=== PATIENT | female | born 1940 | race Caucasian/White ===

== ENCOUNTER → 2017-12-08 12:31 | Outpatient (CLI) | payer MEDICARE, SELFPAY ==
[2017-12-08 13:06] LABS: Hematocrit 38.6 % (36-46); Hemoglobin 12.7 g/dL (12.0-16.0); Mean Corpuscular Hemoglobin 27.5 PG (26-34); Mean Corpuscular Volume 83.4 fL (80-100); Platelet Count 221 X10^3/uL (150-400); Red Blood Cell Count 4.62 X10^6/uL (4.0-5.2); Red Cell Distribution Width 17.4 % (11.6-14.8)
[2017-12-08 13:29] LABS: BUN Creatinine Ratio 19.2 (6-22); Blood Urea Nitrogen 50 mg/dL (7-17); Calcium 9.5 mg/dL (8.4-10.2); Carbon Dioxide 26 mmol/L (22-32); Chloride 99 mmol/L (98-107); Estimated Glomerular Filt Rate 17.9 mL/min (>60); Glucose 105 mg/dL (80-110); HEMOLYSIS < 15 (0-50); Phosphorous 4.6 mg/dL (2.8-4.1); Potassium 4.4 mmol/L (3.4-5.1); Sodium 138 mmol/L (137-145)
[2017-12-10 13:58] LABS: Parathyroid Hormone Int 213 pg/mL (14-64)
== END ==
PROVIDERS: PCP Internal Medicine; Visit Provider Internal Medicine Nephrology
DX: N05.9 Unspecified nephritic syndrome with unspecified morphologic changes (principal); D70.9 Neutropenia, unspecified; E83.30 Disorder of phosphorus metabolism, unspecified; N25.81 Secondary hyperparathyroidism of renal origin
CPT/HCPCS: 36415; 80048; 83970; 84100; 85027

== ENCOUNTER 2018-01-27 17:11 | Emergency (ER) | payer MEDICARE, SELFPAY ==
[2018-01-27] VITALS (8 sets, daily range): BP systolic 118–155; BP diastolic 63–81; PULSE 63–121; RESP 15–18; O2SAT 94–98; BMI 23.9
--- NOTE | 2018-01-27 18:16 | ED.SYNCOPE ---
HPI - Syncope General Chief Complaint: Syncope Stated Complaint: Syncope Time Seen by Provider: 01/27/18 18:13 Source: patient, EMS and RN notes reviewed Limitations: no limitations History of Present Illness HPI narrative: Patient is a 77-year-old female who presents after syncopal episode. She had been standing outside the [facility] very the for a hatchet down there working on getting the other boat up and running. Once on the other boat her felt her collapse. Patient says there were signs of that she was falling. She did not lose consciousness. She does have a history of AFib noted to be in AFib. She currently does not feel it she denies chest pain or heart palpitations. She does take Xarelto, which apparently is going to be switched to Coumadin. But has not yet. She states that she has been drinking all water and does on a regular basis. Does not feel like she was dehydrated. MD complaint: collapsed Related Data Home Medications Medication Instructions Recorded Confirmed aspirin 81 mg tablet,delayed 81 mg PO QPM 12/01/17 01/27/18 release atorvastatin 40 mg tablet 40 mg PO QPM 12/01/17 01/27/18 multivitamin capsule 1 cap PO DAILY 12/01/17 01/27/18 Coumadin 1 dose PO DIRECTED 01/27/18 01/27/18 alendronate 70 mg PO MO 01/27/18 01/27/18 amlodipine 5 mg PO DAILY 01/27/18 01/27/18 calcitriol 1 cap PO MOWEFR 01/27/18 01/27/18 clonidine HCl 1 tab PO PRN PRN 01/27/18 01/27/18 gabapentin 600 mg PO BEDTIME 01/27/18 01/27/18 levothyroxine 1 tab PO DAILY 01/27/18 01/27/18 metoprolol tartrate 25 mg PO BID 01/27/18 01/27/18 Allergies Allergy/AdvReac Type Severity Reaction Status Date / Time No Known Allergies Allergy Uncoded 12/07/17 10:47 Review of Systems Review of Systems All systems reviewed & are unremarkable except as noted in HPI and below Constitutional Denies chills, Denies fever(s), Denies frequent falls, Denies headache(s), Denies lethargy and Denies weakness ENT Ears, Nose, Mouth, and Throat: Denies change in voice, Denies headache(s), Denies neck pain and Denies sore throat Cardiovascular Reports as per HPI, Reports syncope, Denies dyspnea and Denies dyspnea on exertion Respiratory Denies cough, Denies dyspnea, Denies dyspnea on exertion and Denies wheezing Gastrointestinal Gastrointestinal: Denies abdominal pain, Denies change in bowel habits, Denies diarrhea, Denies nausea and Denies vomiting Musculoskeletal Reports system reviewed and no additional complaints, except as docu, Denies neck pain and Denies tingling Integumentary/Breasts Denies pruritus, Denies erythema, Denies rash and Denies wounds Neurologic Reports syncope, Denies frequent falls, Denies headache(s), Denies lack of coordination, Denies sensory deficit, Denies tingling, Denies paresthesias and Denies weakness Allergic/Immunologic Denies wheezing [facility] Medical History FH: total abdominal hysterectomy and bilateral salpingo-oophorectomy (Acute) Atrial fibrillation (Chronic) Bladder cancer (Resolved) Surgical History H/O total cystectomy (Acute) History of bladder surgery (Resolved ~03/2014) Social History Smoking Status: Former smoker Exam Initial Vital Signs Initial Vital Signs: Vital Signs Pulse Rate 121 H 01/27/18 17:14 Respiratory Rate 18 01/27/18 17:14 Blood Pressure 120/78 01/27/18 17:14 Pulse Oximetry 94 01/27/18 17:14 GENERAL: Well-appearing, well-nourished and in no acute distress. HEENT: Head atraumatic,EOMI, pupils reactive, CARDIOVASCULAR: Regular rate and rhythm without murmurs, rubs or gallops. RESPIRATORY: Breath sounds equal bilaterally, no wheezes rales or rhonchi. ABDOMEN: Soft, nontender. Normoactive bowel sounds all 4 quadrants. No guarding or rebound. EXTREMITIES: Normal range of motion, no clubbing or edema. Neurovascularly intact NEUROLOGICAL: Alert and oriented x4.Normal gait and speech. Cranial nerves II through XII grossly intact. Good [id number], good gtsm-ph-[id number], strength equal bilaterally, no dysarthria or aphasia, sensation in tact to soft touch bilaterally, no visual changes, no facial droop SKIN: Warm, dry, no laceration, no petechiae, no rashes or lesions. Course Orders Ordered: ED Orders 01/27/18 17:00 Complete Blood Count AUTO DIFF Stat Comprehensive Metabolic Panel Stat Troponin & CK Cardiac Panel Stat 01/27/18 17:18 EKG-12 Lead Routine 01/27/18 18:24 CT head/brain wo con Stat Discontinued Medications Diltiazem HCl (Cardizem) 10 mg IV NOW ONE Stop: 01/27/18 19:24 Last Admin: 01/27/18 19:45 Dose: Sodium Chloride (Normal Saline 0.9%) 1,000 mls @ 1,000 mls/hr IV BOLUS ONE Stop: 01/27/18 19:22 Last Infusion: 01/27/18 20:36 Dose: 0 mls/hr Admin: 01/27/18 18:50 Dose: 1,000 mls/hr Rivaroxaban (Xarelto) 15 mg PO NOW ONE Stop: 01/27/18 20:21 Last Admin: 01/27/18 20:39 Dose: 15 mg Vital Signs - 8 hr 01/27/18 17:14 01/27/18 17:32 01/27/18 18:01 Pulse Rate 121 H 106 H 116 H Respiratory Rate 18 15 16 Blood Pressure 120/78 Blood Pressure [Left Arm] 118/63 123/78 H Pulse Oximetry 94 95 96 01/27/18 18:32 01/27/18 19:32 01/27/18 19:45 Pulse Rate 104 H 64 69 Respiratory Rate 17 17 Blood Pressure 155/71 H Blood Pressure [Left Arm] 155/71 H Pulse Oximetry 97 98 01/27/18 20:17 01/27/18 21:25 Pulse Rate 63 75 Respiratory Rate 18 16 Blood Pressure 146/68 H Blood Pressure [Left Arm] 123/81 H Pulse Oximetry 96 96 MDM - Syncope Medical Records Attestation: I reviewed the patient's medical records. Lab Data Attestation: I reviewed the patient's lab results. Result diagrams: 01/27/18 17:00 01/27/18 17:00 Lab Results 01/27/18 01/27/18 Range/Units 17:00 17:00 WBC 9.3 (4.5-11.0) X10^3/uL RBC 4.21 (4.0-5.2) X10^6/uL Hgb 11.9 L (12.0-16.0) g/dL Hct 35.4 L (36-46) % MCV 84.2 (80-100) fL MCH 28.3 (26-34) PG MCHC 33.6 (30-36) % RDW 18.8 H (11.6-14.8) % Plt Count 198 (150-400) X10^3/uL Neut % (Auto) 71.4 (50-75) % Lymph % (Auto) 19.1 L (25-40) % [place] % (Auto) 9.1 (3-14) % Eos % (Auto) 0.0 L (2-4) % Baso % (Auto) 0.4 (0-2) % Neut # (Auto) 6600 H (8654-3143) /uL Sodium 142 (137-145) mmol/L Potassium 3.9 (3.4-5.1) mmol/L Chloride 104 (98-107) mmol/L Carbon Dioxide 21 L (22-32) mmol/L BUN 55 H (7-17) mg/dL Creatinine 2.40 H (0.52-1.04) mg/dL Estimated GFR 19.7 L (>60) mL/min BUN/Creatinine Ratio 22.9 H (6-22) Glucose 142 H (80-110) mg/dL Calcium 9.8 (8.4-10.2) mg/dL Total Bilirubin 0.7 (0.2-1.3) mg/dL AST 25 (14-36) IU/L ALT 25 (9-52) IU/L Alkaline Phosphatase 94 (38-126) U/L Total Creatine Kinase 122 (30-135) U/L CK-MB (CK-2) 4.29 H (<2.37) ng/mL CK-MB (CK-2) Rel Index 3.5 (1.5-5.0) % Troponin I 0.020 (0.01-0.034) ng/mL Total Protein 8.0 (6.3-8.2) g/dL Albumin 4.4 (3.5-5.0) g/dL Globulin 3.6 (1.7-4.1) g/dL Albumin/Globulin Ratio 1.2 (1.0-2.8) Imaging Data CT scan - head: Radiologist's impression: PROCEDURE: CT HEAD/BRAIN WO CON INDICATIONS: syncope on xeralto TECHNIQUE: Noncontrast 4.5 mm thick angled axial sections acquired from the foramen magnum to the vertex, with coronal and sagittal reformats. For radiation dose reduction, the following was used: automated exposure control, adjustment of mA and/or kV according to patient size. COMPARISON: Outside Facility, RG, CT HEAD W/O CONTRAST, 08/02/2014, 12:46. FINDINGS: Image quality: Excellent. CSF spaces: Basal cisterns are patent. No extra-axial fluid collections. The ventricles are symmetric in size and shape. Brain: No intracranial bleeds or masses. There is mild cerebral volume loss for age, with resultant ventricular and sulcal prominence. There are severe periventricular and deep white matter chronic small vessel ischemic changes. 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 There is intracranial internal carotid artery and vertebral artery atherosclerosis. Skull and face: Calvarium and visualized facial bones appear intact, without suspicious lesions. Sinuses: Visualized sinuses and mastoids are clear. IMPRESSION: No acute intracranial disease process. Dictated by: Zoie Daniel MD, PhD on 01/27/2018 at 18:47 ECG Data Attestation: I personally reviewed and interpreted this ECG as follows: Prior ECG tracings: available for review Interpretation: EKG atrial fibrillation rate [address] changes similar to previous EKGs MDM Narrative Medical decision making narrative: Patient's heart rate fluctuates up into the 130s. She did take her own home dose of metoprolol in the ED however just prior to that her heart rate did start to settle down into the 60s -70s. She remains completely asymptomatic. No focal deficits. AFib with RVR may have contributed to her syncope. However she has received IV fluid she is tolerating oral fluids. They are unable to get back to [place]. We will give her neck her nightly dose Xarelto as well. I discussed all findings with the patient and , Education has been performed regarding treatment plan, diagnosis, warning signs and symptoms and all concerns have been addressed. Verbally agree with and understood all of the above. Discharge Plan Departure Patient Disposition: Home, Self-Care Clinical Impression: Atrial fibrillation Discharge Date/Time: 01/27/18 20:35 Interventions: ED Discharge Assessment Last Done: 01/27/18 21:25 Instructions: Atrial Fibrillation Activity Restrictions/Additional Instructions: *You have been diagnosed with atrial fibrillation *What to do: Irregular heart rate may have contributed to passing out along with being outside in the heat. Blood work EKG and head CT are negative. *Continue to take medications as directed *Follow up with your primary care provider in 2-3 days *Return to ER if you should have increasing weakness, headache, heart palpitations, dizziness, lightheadedness or any new, worsening or concerning symptoms Prescriptions: No Action aspirin 81 mg tablet,delayed release (DR/EC) 81 mg PO QPM RF: 0 atorvastatin 40 mg tablet 40 mg PO QPM RF: 0 multivitamin capsule 1 cap PO DAILY RF: 0 alendronate 70 mg tablet 70 mg PO MO RF: 0 amlodipine 5 mg tablet 5 mg PO DAILY RF: 0 levothyroxine 50 mcg tablet 1 tab PO DAILY RF: 0 gabapentin 300 mg capsule 600 mg PO BEDTIME RF: 0 calcitriol 0.25 mcg capsule 1 cap PO MOWEFR RF: 0 metoprolol tartrate 25 mg tablet 25 mg PO BID RF: 0 clonidine HCl 0.1 mg Tablet 1 tab PO PRN PRN (Reason: Blood Pressure) RF: 0 Coumadin 1 dose PO DIRECTED RF: 0 Referrals: Brionna Jiménez MD [Primary Care Provider] -
--- NOTE | 2018-01-27 18:24 | DI.CT.S_ITS ---
PROCEDURE: CT HEAD/BRAIN WO CON INDICATIONS: syncope on xeralto TECHNIQUE: Noncontrast 4.5 mm thick angled axial sections acquired from the foramen magnum to the vertex, with coronal and sagittal reformats. For radiation dose reduction, the following was used: automated exposure control, adjustment of mA and/or kV according to patient size. COMPARISON: Outside Facility, RG, CT HEAD W/O CONTRAST, 08/02/2014, 12:46. FINDINGS: Image quality: Excellent. CSF spaces: Basal cisterns are patent. No extra-axial fluid collections. The ventricles are symmetric in size and shape. Brain: No intracranial bleeds or masses. There is mild cerebral volume loss for age, with resultant ventricular and sulcal prominence. There are severe periventricular and deep white matter chronic small vessel ischemic changes. 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 There is intracranial internal carotid artery and vertebral artery atherosclerosis. Skull and face: Calvarium and visualized facial bones appear intact, without suspicious lesions. Sinuses: Visualized sinuses and mastoids are clear. IMPRESSION: No acute intracranial disease process. Dictated by: Zoie Daniel MD, PhD on 01/27/2018 at 18:47 Approved by: Zoie Daniel MD, PhD on 01/27/2018 at 18:50
[2018-01-27 18:50] LABS: Add Manual Diff / Slide Review NO; Basophils Percent Auto 0.4 % (0-2); Hematocrit 35.4 % (36-46); Hemoglobin 11.9 g/dL (12.0-16.0); Lymphocytes Percent Auto 19.1 % (25-40); Mean Corpuscular HGB Conc 33.6 % (30-36); Mean Corpuscular Hemoglobin 28.3 PG (26-34); Mean Corpuscular Volume 84.2 fL (80-100); Monocytes Percent Auto 9.1 % (3-14); Neutrophils Absolute Auto 6600 /uL (3000-5900); Neutrophils Percent Auto 71.4 % (50-75); Platelet Count 198 X10^3/uL (150-400); Red Blood Cell Count 4.21 X10^6/uL (4.0-5.2); Red Cell Distribution Width 18.8 % (11.6-14.8); White Blood Cell Count 9.3 X10^3/uL (4.5-11.0)
[2018-01-27] MEDS: SODIUM CHLORIDE 0.9% 1,000 ML 1000 ML IV (18:50)
[2018-01-27 19:02] LABS: Alanine Aminotransferase 25 IU/L (9-52); Albumin 4.4 g/dL (3.5-5.0); Albumin Globulin Ratio 1.2 (1.0-2.8); Alkaline Phosphatase 94 U/L (38-126); Aspartate Aminotransferase 25 IU/L (14-36); BUN Creatinine Ratio 22.9 (6-22); Bilirubin Total 0.7 mg/dL (0.2-1.3); Blood Urea Nitrogen 55 mg/dL (7-17); Calcium 9.8 mg/dL (8.4-10.2); Carbon Dioxide 21 mmol/L (22-32); Chloride 104 mmol/L (98-107); Creatine Kinase 122 U/L (30-135); Estimated Glomerular Filt Rate 19.7 mL/min (>60); Globulin 3.6 g/dL (1.7-4.1); Glucose 142 mg/dL (80-110); HEMOLYSIS < 15 (0-50); Potassium 3.9 mmol/L (3.4-5.1); Sodium 142 mmol/L (137-145)
[2018-01-27 19:17] LABS: CKMB % Relative Index 3.5 % (1.5-5.0); Creatine Kinase MB 4.29 ng/mL (<2.37)
[2018-01-27] MEDS: RIVAROXABAN 10 MG TABLET 15 MG PO (20:39)
== END 2018-01-27 20:35 | disposition home or self-care (01) ==
PROVIDERS: Emergency Provider Emergency Medicine; Family Provider Internal Medicine; PCP Internal Medicine
DX: I48.91 Unspecified atrial fibrillation (principal)
CPT/HCPCS: 70450; 80053; 82550; 82553; 84484; 85025; 93005; 93010; 93041; 96360; 96361; 99284; 99285

== ENCOUNTER → 2018-02-02 09:05 | Outpatient (CLI) | payer MEDICARE, SELFPAY ==
[2018-02-02 10:47] LABS: Alanine Aminotransferase 23 IU/L (9-52); Aspartate Aminotransferase 23 IU/L (14-36); Cholesterol 133 mg/dL (140-199); HDL Cholesterol 49 mg/dL (40-60); LDL Cholesterol Calculated 71 mg/dL (<100); Triglycerides 66 mg/dL (35-150)
[2018-02-02 11:11] LABS: TSH w/ Reflex to FT4 2.64 uIU/mL (0.47-4.68)
== END ==
PROVIDERS: PCP Internal Medicine; Visit Provider Internal Medicine
DX: E78.2 Mixed hyperlipidemia (principal); E03.9 Hypothyroidism, unspecified
CPT/HCPCS: 36415; 80061; 84443; 84450; 84460

== ENCOUNTER → 2018-02-25 08:33 | Outpatient (CLI) | payer MEDICARE, SELFPAY ==
[2018-02-25 09:48] LABS: BUN Creatinine Ratio 18.6 (6-22); Blood Urea Nitrogen 41 mg/dL (7-17); Calcium 9.4 mg/dL (8.4-10.2); Carbon Dioxide 27 mmol/L (22-32); Chloride 108 mmol/L (98-107); Estimated Glomerular Filt Rate 21.8 mL/min (>60); Glucose 89 mg/dL (80-110); HEMOLYSIS < 15 (0-50); Potassium 4.4 mmol/L (3.4-5.1); Sodium 146 mmol/L (137-145)
== END ==
PROVIDERS: Family Provider Internal Medicine; PCP Internal Medicine; Visit Provider Internal Medicine Nephrology
DX: N05.9 Unspecified nephritic syndrome with unspecified morphologic changes (principal)
CPT/HCPCS: 36415; 80048

== ENCOUNTER → 2018-04-09 13:33 | Outpatient (CLI) | payer MEDICARE, SELFPAY ==
--- NOTE | 2018-04-09 | DI.ECHO.S_ITS ---
[facility] +---------+ : : [address] [place] [address] : : : : [id number] : : : : Phone: [phone]---------+ Echocardiogram Report + + :Name: AURELIA BANKS Study Date: 04/09/2018 Height: 67 in : :[facility] Weight: 143 lb : : Gender: Female BSA: 1.8 m2 : :: 1940 Age: 78 yrs BP: 150/80 mmHg: :Reason For Study: Aortic, Ascending Aneurysm : :Ordering Physician: Lisa : :Lesvia Performed By: Kathie Hernandez : :Referring: Brionna Jiménez : + + Interpretation Summary The left ventricle is normal in size. The ejection fraction is estimated to be 60-65%. Diastolic parameters suggest a pseudonormalization pattern, consistent with probable elevated filling pressures. The right ventricle is normal size.The right ventricular systolic function is normal. Posterior mitral annulus is heavily calcified. No significant mitral valve stenosis. There is moderate mitral regurgitation. Compared to the prior echo study, there has been an increase in the severity of mitral regurgitation. There is mild aortic regurgitation. Compared to the prior echo study, there has been no change in the severity of aortic regurgitation. There is mild tricuspid regurgitation. Compared to the prior echo exam, there has been no change in TR severity. The right ventricular systolic pressure is estimated to be at least 30 mmHg based on an estimated right atrial pressure of 3 mm Hg. The ascending aorta is mild-moderately enlarged (4.0 cm in diameter. No significant change from the previous study.). Color shunt seen across intra-atrial septum from [id number] appears to be small ASD which was seen in October 2014 as well. Procedure: A two-dimensional transthoracic echocardiogram with color flow and Doppler was performed. The study quality was technically adequate. Comparison is made with the echocardiogram of 11-09-14. The patient was in sinus bradycardia with heart rates between 48-55 bpm during the exam. Left Ventricle: The left ventricle is normal in size. There is normal left ventricular wall thickness. There is no thrombus. The ejection fraction is estimated to be 60-65%. There are no focal wall motion abnormalities. Diastolic parameters suggest a pseudonormalization pattern, consistent with probable elevated filling pressures. Right Ventricle: The right ventricle is normal size. The right ventricular systolic function is normal. Atria: The left atrium is severely dilated. The left atrium has remained unchanged in size since the prior echo exam. Right atrial size is normal. The right atrium has significantly decreased in size since the prior echo exam. Color shunt seen across intra-atrial septum from [id number] appears to be small ASD which was seen in October 2014 as well. Mitral Valve: The mitral valve leaflets are mildly calcified. There is moderate to severe mitral annular calcification. Posterior mitral annulus is heavily calcified. No significant mitral valve stenosis. There is moderate mitral regurgitation. Compared to the prior echo study, there has been an increase in the severity of mitral regurgitation. Aortic Valve: The aortic valve is trileaflet. The aortic valve opens well. There is mild aortic valve sclerosis. There is no aortic valve stenosis. There is mild aortic regurgitation. Compared to the prior echo study, there has been no change in the severity of aortic regurgitation. Tricuspid Valve: The tricuspid valve leaflets are thin and pliable. There is mild tricuspid regurgitation. The right ventricular systolic pressure is estimated to be at least 30 mmHg based on an estimated right atrial pressure of 3 mm Hg. Compared to the prior echo exam, there has been no change in TR severity. Pulmonic Valve: The pulmonic valve is normal in structure and function. There is trace pulmonic regurgitation. Great Vessels: The aortic root is normal size. There is aortic root sclerosis/calcification. The ascending aorta is mild-moderately enlarged. This is unchanged compared to the previous study. The IVC is of normal diameter and collapses greater than 50% with a sniff. This suggests a low right atrial pressure of 3 mm Hg. Pericardium/ Pleura There is no pericardial effusion. There is no pleural effusion. MMode/2D Measurements & Calculations LVIDd: 4.6 cm Ao root diam: 3.6 cm LVIDs: 2.8 cm Aortic Jxn: 3.4 cm FS: 40.1 % asc Aorta Diam: 4.0 cm EPSS: 1.0 cm Ao Arch Diam (Prox Trans): 2.8 cm IVSd: 1.1 cm LVPWd: 0.95 cm LV morin. diameter/BSA (cm/m^2): 2.6 LV sys. diameter/BSA (cm/m^2): 1.6 LA dimension: 4.7 cm RA long axis: 6.3 cm LA A2 area: 36.5 cm2 RA area: 20.2 cm2 LA A4 area: 34.5 cm2 RA vol: 55.3 ml LA length (vol): 8.0 cm RA : 31.5 ml/m2 LA vol: 134.0 ml IVC diam: 1.2 cm LA vol index: 76.4 ml/m2 RVDd major: 5.2 cm RVD1 (basal): 3.0 cm RVD2 (mid): 2.5 cm Doppler Measurements & Calculations Ao V2 max: 142.7 cm/sec AI P1/2t: 656.6 msec Ao V2 mean: 91.3 cm/sec AI dec slope: 193.7 cm/sec2 Ao max P.1 mmHg Ao mean P.0 mmHg Ao V2 VTI: 36.9 cm MV E max virgilio: 121.7 cm/sec TR max virgilio: 258.3 cm/sec MV A max virgilio: 38.9 cm/sec TR max P.7 mmHg MV E/A: 3.1 PA V2 max: 73.3 cm/sec Med Peak E' Virgilio: 2.8 cm/sec PA V2 mean: 47.5 cm/sec E/E' med: 42.8 PA mean P.0 mmHg Lat Peak E' Virgilio: 7.7 cm/sec PA Accel Time: 0.14 sec E/E' lat: 15.8 E/e' average: 29.3 MV dec time: 0.16 sec MV P1/2t: 46.6 msec MV P1/2t max virgilio: 121.0 cm/sec MVA(P1/2t): 4.7 cm2 Reading Physician:PM
== END ==
PROVIDERS: PCP Internal Medicine; Visit Provider Internal Medicine Cardiovascular Disease
DX: I71.2 Thoracic aortic aneurysm, without rupture (principal); I08.3 Combined rheumatic disorders of mitral, aortic and tricuspid valves
CPT/HCPCS: 93306

== ENCOUNTER → 2018-11-30 08:29 | Outpatient (CLI) | payer MEDICARE, SELFPAY ==
[2018-11-30 10:08] LABS: Hematocrit 38.6 % (36-46); Hemoglobin 12.6 g/dL (12.0-16.0); Mean Corpuscular HGB Conc 32.7 % (30-36); Mean Corpuscular Hemoglobin 27.1 PG (26-34); Mean Corpuscular Volume 83.1 fL (80-100); Platelet Count 250 X10^3/uL (150-400); Red Blood Cell Count 4.64 X10^6/uL (4.0-5.2); White Blood Cell Count 7.4 X10^3/uL (4.5-11.0)
[2018-11-30 10:33] LABS: BUN Creatinine Ratio 19.5 (6-22); Blood Urea Nitrogen 43 mg/dL (7-17); Calcium 9.6 mg/dL (8.4-10.2); Carbon Dioxide 28 mmol/L (22-32); Chloride 103 mmol/L (98-107); Cholesterol 149 mg/dL (140-199); Estimated Glomerular Filt Rate 21.7 mL/min (>60); Glucose 95 mg/dL (80-110); HDL Cholesterol 44 mg/dL (40-60); HEMOLYSIS < 15 (0-50); LDL Cholesterol Calculated 87 mg/dL (<100); Potassium 5.1 mmol/L (3.4-5.1); Sodium 140 mmol/L (137-145); Triglycerides 92 mg/dL (35-150)
[2018-11-30 11:51] LABS: Thyroid Stimulating Hormone 3.33 uIU/mL (0.47-4.68)
== END ==
PROVIDERS: Family Provider Internal Medicine Nephrology; PCP Internal Medicine; Visit Provider Internal Medicine Cardiovascular Disease
DX: N05.9 Unspecified nephritic syndrome with unspecified morphologic changes (principal); D70.9 Neutropenia, unspecified; D63.1 Anemia in chronic kidney disease; E78.5 Hyperlipidemia, unspecified; E03.9 Hypothyroidism, unspecified
CPT/HCPCS: 36415; 80048; 80061; 84443; 85027

== ENCOUNTER → 2018-12-07 09:27 | Outpatient (CLI) | payer MEDICARE, SELFPAY | PROVIDERS: PCP Internal Medicine; Visit Provider Internal Medicine | DX: M81.0 Age-related osteoporosis without current pathological fracture (principal) | CPT/HCPCS: 77080 ==

== ENCOUNTER → 2019-03-07 12:05 | Outpatient (CLI) | payer MEDICARE, SELFPAY ==
[2019-03-07 12:30] LABS: Add Manual Diff / Slide Review NO; Basophils Absolute Auto 0 /uL (0-100); Basophils Percent Auto 0.5 % (0-2); Eosinophils Absolute Auto 0 /uL (0-450); Eosinophils Percent Auto 0.1 % (2-4); Hematocrit 35.6 % (36-46); Hemoglobin 11.5 g/dL (12.0-16.0); Lymphocytes Absolute Auto 1000 /uL (1100-4500); Lymphocytes Percent Auto 14.7 % (25-40); Mean Corpuscular HGB Conc 32.2 % (30-36); Mean Corpuscular Hemoglobin 27.1 PG (26-34); Mean Corpuscular Volume 84.1 fL (80-100); Monocytes Absolute Auto 500 /uL (0-900); Monocytes Percent Auto 7.8 % (3-14); Neutrophils Absolute Auto 5100 /uL (1500-7000); Neutrophils Percent Auto 76.9 % (50-75); Platelet Count 220 X10^3/uL (150-400); Red Blood Cell Count 4.24 X10^6/uL (4.0-5.2); Red Cell Distribution Width 16.8 % (11.6-14.8); White Blood Cell Count 6.7 X10^3/uL (4.5-11.0)
[2019-03-07 13:01] LABS: BUN Creatinine Ratio 17.5 (6-22); Blood Urea Nitrogen 42 mg/dL (7-17); Calcium 9.7 mg/dL (8.4-10.2); Carbon Dioxide 26 mmol/L (22-32); Chloride 98 mmol/L (98-107); Estimated Glomerular Filt Rate 19.6 mL/min (>60); Glucose 118 mg/dL (80-110); HEMOLYSIS < 15 (0-50); Phosphorous 4.4 mg/dL (2.8-4.1); Potassium 4.8 mmol/L (3.4-5.1); Sodium 136 mmol/L (137-145)
[2019-03-10 15:30] LABS: Parathyroid Hormone Int 92 pg/mL (14-64)
== END ==
PROVIDERS: PCP Internal Medicine; Visit Provider Internal Medicine Nephrology
DX: E83.30 Disorder of phosphorus metabolism, unspecified (principal); N25.81 Secondary hyperparathyroidism of renal origin; N05.9 Unspecified nephritic syndrome with unspecified morphologic changes; D63.1 Anemia in chronic kidney disease; D70.9 Neutropenia, unspecified
CPT/HCPCS: 36415; 80048; 83970; 84100; 85025

== ENCOUNTER → 2019-12-28 09:26 | Outpatient (CLI) | payer MEDICARE, SELFPAY ==
[2019-12-28 11:12] LABS: Hematocrit 36.2 % (36-46); Hemoglobin 12.3 g/dL (12.0-16.0); Mean Corpuscular HGB Conc 33.9 % (30-36); Mean Corpuscular Hemoglobin 28.6 PG (26-34); Mean Corpuscular Volume 84.4 fL (80-100); Platelet Count 224 X10^3/uL (150-400); Red Blood Cell Count 4.29 X10^6/uL (4.0-5.2); Red Cell Distribution Width 18.8 % (11.6-14.8); White Blood Cell Count 6.3 X10^3/uL (4.5-11.0)
[2019-12-28 11:51] LABS: BUN Creatinine Ratio 21.2 (6-22); Blood Urea Nitrogen 49 mg/dL (7-17); Calcium 9.5 mg/dL (8.4-10.2); Carbon Dioxide 25 mmol/L (22-32); Chloride 106 mmol/L (98-107); Estimated Glomerular Filt Rate 20.5 mL/min (>60); Glucose 104 mg/dL (80-110); HEMOLYSIS < 15 (0-50); Potassium 4.7 mmol/L (3.4-5.1); Sodium 139 mmol/L (137-145)
== END ==
PROVIDERS: PCP Internal Medicine; Referring Provider Internal Medicine Nephrology; Visit Provider Internal Medicine Nephrology
DX: D70.9 Neutropenia, unspecified (principal); D63.1 Anemia in chronic kidney disease; N05.9 Unspecified nephritic syndrome with unspecified morphologic changes
CPT/HCPCS: 36415; 80048; 85027

== ENCOUNTER → 2020-01-26 08:49 | Outpatient (CLI) | payer MEDICARE, SELFPAY ==
[2020-01-26 09:52] LABS: Alanine Aminotransferase 13 IU/L (<35); Aspartate Aminotransferase 22 IU/L (14-36); Cholesterol 136 mg/dL (140-199); HDL Cholesterol 53 mg/dL (40-60); LDL Cholesterol Calculated 62 mg/dL (<100); Triglycerides 105 mg/dL (35-150)
== END ==
PROVIDERS: PCP Internal Medicine; Referring Provider Internal Medicine; Visit Provider Internal Medicine
DX: E03.9 Hypothyroidism, unspecified (principal); E78.2 Mixed hyperlipidemia
CPT/HCPCS: 36415; 80061; 84443; 84450; 84460

== ENCOUNTER → 2020-02-20 14:32 | Outpatient (CLI) | payer MEDICARE, SELFPAY ==
[2020-02-20 15:17] LABS: Phosphorous 4.5 mg/dL (2.8-4.1)
[2020-02-21 07:09] LABS: Parathyroid Hormone Int 99 pg/mL (15-65)
[2020-02-23 09:12] LABS: Alkaline Phosphatase, Bone Spe 13.2 ug/L (.)
== END ==
PROVIDERS: PCP Internal Medicine; Referring Provider Internal Medicine; Visit Provider Internal Medicine Nephrology
DX: M81.0 Age-related osteoporosis without current pathological fracture (principal); N25.0 Renal osteodystrophy; E83.30 Disorder of phosphorus metabolism, unspecified; N25.81 Secondary hyperparathyroidism of renal origin
CPT/HCPCS: 36415; 83970; 84080; 84100

== ENCOUNTER → 2020-03-29 09:56 | Outpatient (CLI) | payer MEDICARE, SELFPAY ==
[2020-03-29 10:26] LABS: Hematocrit 36.4 % (36-46); Hemoglobin 12.3 g/dL (12.0-16.0); Mean Corpuscular HGB Conc 33.8 % (30-36); Mean Corpuscular Hemoglobin 28.5 PG (26-34); Mean Corpuscular Volume 84.5 fL (80-100); Platelet Count 215 X10^3/uL (150-400); Red Blood Cell Count 4.31 X10^6/uL (4.0-5.2); White Blood Cell Count 9.2 X10^3/uL (4.5-11.0)
[2020-03-29 11:00] LABS: BUN Creatinine Ratio 21.1 (6-22); Blood Urea Nitrogen 48 mg/dL (7-17); Calcium 9.7 mg/dL (8.4-10.2); Carbon Dioxide 28 mmol/L (22-32); Chloride 105 mmol/L (98-107); Estimated Glomerular Filt Rate 20.7 mL/min (>60); Glucose 95 mg/dL (80-110); HEMOLYSIS < 15 (0-50); Phosphorous 3.6 mg/dL (2.8-4.1); Potassium 3.9 mmol/L (3.4-5.1); Sodium 140 mmol/L (137-145)
[2020-03-30 09:14] LABS: Parathyroid Hormone Int 39 pg/mL (15-65)
== END ==
PROVIDERS: PCP Internal Medicine; Referring Provider Internal Medicine Nephrology; Visit Provider Internal Medicine Nephrology
DX: N05.9 Unspecified nephritic syndrome with unspecified morphologic changes (principal); D70.9 Neutropenia, unspecified; D63.1 Anemia in chronic kidney disease; E83.30 Disorder of phosphorus metabolism, unspecified; N25.81 Secondary hyperparathyroidism of renal origin
CPT/HCPCS: 36415; 80048; 83970; 84100; 85027

== ENCOUNTER → 2021-01-04 07:30 | Outpatient (CLI) | payer MEDICARE, SELFPAY ==
--- NOTE | 2021-01-04 | DI.ECHO.S_ITS ---
[facility]---------+ [facility] +---------+ : : [address] : [address] : : : : [id number] : : : : Phone: [phone]+ Echocardiogram Report + + :Name: AURELIA BANKS Study Date: 01/04/2021 Height: 65 in : :[facility] : Weight: 140 lb : : Gender: Female BSA: 1.7 m2 : :: 1940 Age: 80 yrs BP: 185/99 mmHg: :Reason For Study: Aortic, Ascending Aneurysm : :Ordering Physician: Marek : :Beth Marshall Performed By: Haris Zaidi : :Referring: MAREK MARSHALL : + + Interpretation Summary The left ventricle is normal in size. The ejection fraction is estimated to be 55-60%. Diastolic parameters suggest a pseudonormalization pattern, consistent with probable elevated filling pressures. There has been no significant change since the previous study. The right ventricle is normal in size and function. There is moderate mitral regurgitation. Compared to the prior echo study, there has been no change in the severity of mitral regurgitation. There is mild aortic regurgitation. Compared to the prior echo study, there has been no change in the severity of aortic regurgitation. There is mild tricuspid regurgitation. Compared to the prior echo exam, there has been no change in TR severity. The right ventricular systolic pressure is estimated to be at least 43 mmHg based on an estimated right atrial pressure of 3 mm Hg. Compared to the prior echo exam, there has been an increase in the severity of pulmonary hypertension. Ascending aorta 4.1 cm in diameter. Previously it was 4.0 cm. Procedure: A two-dimensional transthoracic echocardiogram with color flow and Doppler was performed. The study quality was technically adequate. Comparison is made with the echocardiogram of 04/09/2018. The patient was in normal sinus rhythm during the exam. The patient had frequent PVCs during the exam. Left Ventricle: The left ventricle is normal in size. There is mild concentric left ventricular hypertrophy. There is no thrombus. Left ventricular systolic function is normal. The ejection fraction is estimated to be 55-60%. There are no focal wall motion abnormalities. There is a mild dyssynchronous contraction pattern, consistent with a conduction abnormality. Diastolic parameters suggest a pseudonormalization pattern, consistent with probable elevated filling pressures. There has been no significant change since the previous study. Right Ventricle: The right ventricle is normal in size and function. Atria: The left atrium is severely dilated. The left atrium has remained unchanged in size since the prior echo exam. The right atrium is normal in size. Doppler evidence suggests a left to right interatrial shunt. Color shunt seen across intra-atrial septum from [id number] appears to be small ASD which was seen in October 2014 and March 2018 as well. Mitral Valve: There is severe mitral annular calcification. Posterior mitral annulus is heavily calcified. No significant mitral valve stenosis. There is moderate mitral regurgitation. Compared to the prior echo study, there has been no change in the severity of mitral regurgitation. Aortic Valve: There is mild aortic valve sclerosis. The aortic valve is mildly calcified. The aortic valve is trileaflet. There is no aortic valve stenosis. There is mild aortic regurgitation. Compared to the prior echo study, there has been no change in the severity of aortic regurgitation. Tricuspid Valve: The tricuspid valve is normal. There is mild tricuspid regurgitation. The right ventricular systolic pressure is estimated to be at least 43 mmHg based on an estimated right atrial pressure of 3 mm Hg. Compared to the prior echo exam, there has been no change in TR severity. Compared to the prior echo exam, there has been an increase in the severity of pulmonary hypertension. Pulmonic Valve: The pulmonic valve leaflets are thin and pliable; valve motion is normal. There is mild pulmonic regurgitation. Great Vessels: The aortic root is normal size. The IVC is of normal diameter and collapses greater than 50% with a sniff. This suggests a low right atrial pressure of 3 mm Hg. Pericardium/ Pleura There is no pericardial effusion. There is no pleural effusion. MMode/2D Measurements & Calculations LVIDd: 4.8 cm LVOT diam: 2.0 cm LVIDs: 3.4 cm Ao root diam: 3.4 cm FS: 28.8 % asc Aorta Diam: 4.1 cm IVSd: 1.1 cm LVPWd: 1.2 cm LV morin. diameter/BSA (cm/m^2): 2.8 LV sys. diameter/BSA (cm/m^2): 2.0 LA A2 area: 37.1 cm2 RA long axis: 7.2 cm LA A4 area: 36.1 cm2 RA area: 19.0 cm2 LA length (vol): 7.7 cm RA vol: 42.6 ml LA vol: 148.2 ml RA : 25.0 ml/m2 LA vol index: 87.2 ml/m2 TAPSE: 2.4 cm Doppler Measurements & Calculations Ao V2 max: 160.0 cm/sec LVOT Max Virgilio: 68.4 cm/sec Ao V2 mean: 107.7 cm/sec LV V1 max P.9 mmHg Ao max P.2 mmHg LV V1 VTI: 18.9 cm Ao mean P.2 mmHg ABIDA(I,D): 1.6 cm2 Ao V2 VTI: 38.5 cm ABIDA(V,D): 1.4 cm2 sev ratio: 0.49 ABIDA indexed to BSA (cm^2/m^2): 0.95 AI P1/2t: 549.6 msec AI dec slope: 253.6 cm/sec2 MV E max virgilio: 117.5 cm/sec TR max virgilio: 314.5 cm/sec MV A max virgilio: 48.2 cm/sec TR max P.6 mmHg MV E/A: 2.4 PA V2 max: 69.4 cm/sec MV dec time: 0.17 sec PA V2 mean: 55.4 cm/sec PA mean P.3 mmHg PA pr(Accel): 37.0 mmHg SV(LVOT): 62.5 ml Reading Physician:10:11 PM
--- NOTE | 2021-01-04 | DI.US.S_ITS ---
PROCEDURE: US CAROTID DOPPLER BI INDICATIONS: HISTORY OF CAROTID ENDARTERECTOMY TECHNIQUE: Color and pulse Doppler interrogation was performed of both carotid systems, with image documentation and velocity measurements. COMPARISON: None. FINDINGS: Stenosis calculations are based on SRU (Society of Radiologists in Ultrasound) criteria. Right side: Brachial blood pressure: 197/81 mm Hg. Common carotid artery peak systolic velocity: 68 cm/sec. Internal carotid artery peak systolic velocity: 80 cm/sec. Internal carotid artery end diastolic velocity: 16 cm/sec. External carotid artery peak systolic velocity: 275 cm/sec. ICA/CCA peak systolic ratio: 1.2 . Vasquez scale imaging description: Severe calcific plaque at the bifurcation Percent internal carotid artery stenosis: Less than 50% . Left side: Brachial blood pressure: Not obtained Common carotid artery peak systolic velocity: 104 cm/sec. Internal carotid artery peak systolic velocity: 98 cm/sec. Internal carotid artery end diastolic velocity: 35 cm/sec. External carotid artery peak systolic velocity: 38 cm/sec. ICA/CCA peak systolic ratio: 0.9 . Vasquez scale imaging description: Moderate calcific plaque at the bifurcation and within the distal common carotid artery. Percent internal carotid artery stenosis: Less than 50% . . IMPRESSION: 1. Less than 50% bilateral internal carotid artery stenosis. Dictated by: Brittney Purcell M.D. on 01/04/2021 at 16:45 Approved by: Brittney Purcell M.D. on 01/04/2021 at 16:47
== END ==
PROVIDERS: PCP Internal Medicine; Referring Provider Internal Medicine Cardiovascular Disease; Visit Provider Internal Medicine Cardiovascular Disease
DX: I65.23 Occlusion and stenosis of bilateral carotid arteries (principal); I08.3 Combined rheumatic disorders of mitral, aortic and tricuspid valves; I71.2 Thoracic aortic aneurysm, without rupture; Z98.890 Other specified postprocedural states
CPT/HCPCS: 93306; 93880

== ENCOUNTER → 2021-12-17 09:10 | Outpatient (CLI) | payer MEDICARE, SELFPAY ==
--- NOTE | 2021-12-17 | DI.MG.S_ITS ---
BILATERAL DIGITAL SCREENING MAMMOGRAM 3D/2D WITH CAD: 12/17/2021 CLINICAL: Routine screening. Comparison is made to exams dated: 03/17/2013 mammogram, 03/15/2012 mammogram, 03/14/2011 mammogram, and 03/13/2010 mammogram - [facility]. The tissue of both breasts is heterogeneously dense. This may lower the sensitivity of mammography. Current study was also evaluated with a Computer Aided Detection (CAD) system. There are benign calcifications in both breasts. No significant masses, calcifications, or other findings are seen in either breast. There has been no significant interval change. IMPRESSION: BENIGN There is no mammographic evidence of malignancy. A 1 year screening mammogram is recommended. This exam was interpreted at Station ID: [id number]. NOTE: For mammograms, a report in lay terms will be sent to the patient. Approximately 15% of breast malignancies will not be visualized mammographically. In the management of a palpable breast mass, a negative mammogram must not discourage biopsy of a clinically suspicious lesion. Electronically Signed By: Jordin carias/edel:12/17/2021 10:00:11 letter sent: Normal Exam ACR BI-RADS Category 2: Benign Finding(s) 3342F
== END ==
PROVIDERS: PCP Internal Medicine; Referring Provider Internal Medicine; Visit Provider Internal Medicine
DX: Z12.31 Encounter for screening mammogram for malignant neoplasm of breast (principal)
CPT/HCPCS: 77063; 77067

== ENCOUNTER → 2022-02-18 15:53 | Outpatient (CLI) | payer MEDICARE, SELFPAY ==
[2022-02-18 16:46] LABS: Reticulocyte Count, Percent 2.6 % (1.1-2.6)
[2022-02-18 17:11] LABS: HEMOLYSIS < 15 (0-50); Iron 76 ug/dL (37-170)
[2022-02-18 17:21] LABS: Percent Iron Saturation 21 % (15-50); Total Iron Binding Capacity 361 ug/dL (265-497); Transferrin 249 mg/dL (206-381)
[2022-02-18 18:18] LABS: Folate > 20.0 ng/mL (2.76-20.0); Vitamin B12 956 pg/mL (239-931)
[2022-02-19 19:10] LABS: Erythropoietin 17.4 mIU/mL (2.6-18.5)
== END ==
PROVIDERS: PCP Internal Medicine; Referring Provider Internal Medicine Cardiovascular Disease; Visit Provider Internal Medicine Cardiovascular Disease
DX: D64.9 Anemia, unspecified (principal)
CPT/HCPCS: 36415; 82607; 82668; 82746; 83540; 83550; 85045

== ENCOUNTER → 2022-02-20 14:56 | Outpatient (CLI) | payer MEDICARE, SELFPAY ==
[2022-02-20 15:46] LABS: Add Manual Diff / Slide Review NO; Basophils Absolute Auto 0 /uL (0-100); Basophils Percent Auto 0.6 % (0-2); Eosinophils Absolute Auto 0 /uL (0-450); Hematocrit 24.7 % (36-46); Hemoglobin 8.5 g/dL (12.0-16.0); Lymphocytes Absolute Auto 500 /uL (1100-4500); Lymphocytes Percent Auto 8.6 % (25-40); Mean Corpuscular HGB Conc 34.3 % (30-36); Mean Corpuscular Hemoglobin 27.8 PG (26-34); Monocytes Absolute Auto 600 /uL (0-900); Monocytes Percent Auto 8.8 % (3-14); Neutrophils Absolute Auto 5200 /uL (1500-7000); Platelet Count 290 X10^3/uL (150-400); Red Blood Cell Count 3.05 X10^6/uL (4.0-5.2); Red Cell Distribution Width 16.7 % (11.6-14.8); White Blood Cell Count 6.4 X10^3/uL (4.5-11.0)
[2022-02-21 18:27] LABS: Erythropoietin 15.8 mIU/mL (2.6-18.5)
== END ==
PROVIDERS: PCP Internal Medicine; Referring Provider Internal Medicine Cardiovascular Disease; Visit Provider Internal Medicine Cardiovascular Disease
DX: D64.9 Anemia, unspecified (principal)
CPT/HCPCS: 36415; 82668; 85025

== ENCOUNTER → 2022-02-21 15:57 | Outpatient (CLI) | payer MEDICARE, SELFPAY ==
[2022-02-21 17:37] LABS: Occult Blood 1 Negative (Negative); Sample 1 Time 1606
== END ==
PROVIDERS: PCP Internal Medicine; Referring Provider Internal Medicine Cardiovascular Disease; Visit Provider Internal Medicine Cardiovascular Disease
DX: D64.9 Anemia, unspecified (principal)
CPT/HCPCS: 82270

== ENCOUNTER → 2022-02-25 12:50 | Outpatient (CLI) | payer MEDICARE, SELFPAY ==
[2022-02-25 14:03] LABS: Hematocrit 25.7 % (36-46); Hemoglobin 8.5 g/dL (12.0-16.0); Mean Corpuscular HGB Conc 33.2 % (30-36); Mean Corpuscular Hemoglobin 27.9 PG (26-34); Mean Corpuscular Volume 83.8 fL (80-100); Platelet Count 255 X10^3/uL (150-400); Red Blood Cell Count 3.06 X10^6/uL (4.0-5.2); Red Cell Distribution Width 19.9 % (11.6-14.8); White Blood Cell Count 5.8 X10^3/uL (4.5-11.0)
[2022-02-25 14:54] LABS: BUN Creatinine Ratio 17.6 (6-22); Blood Urea Nitrogen 48 mg/dL (7-17); Carbon Dioxide 24 mmol/L (22-32); Chloride 104 mmol/L (98-107); Estimated Glomerular Filt Rate 17 mL/min (>60); Glucose 150 mg/dL (80-110); HEMOLYSIS < 15 (0-50); Potassium 4.7 mmol/L (3.4-5.1); Sodium 134 mmol/L (137-145)
== END ==
PROVIDERS: PCP Internal Medicine; Referring Provider Internal Medicine Nephrology; Visit Provider Internal Medicine Nephrology
DX: D70.9 Neutropenia, unspecified (principal); N05.9 Unspecified nephritic syndrome with unspecified morphologic changes; D63.1 Anemia in chronic kidney disease
CPT/HCPCS: 36415; 80048; 85027

== ENCOUNTER → 2022-04-09 09:01 | Outpatient (CLI) | payer MEDICARE, SELFPAY ==
[2022-04-09 09:48] LABS: Hematocrit 27.3 % (36-46); Hemoglobin 9.1 g/dL (12.0-16.0)
== END ==
PROVIDERS: PCP Internal Medicine; Referring Provider Internal Medicine; Visit Provider Internal Medicine
DX: N18.9 Chronic kidney disease, unspecified (principal); D63.1 Anemia in chronic kidney disease
CPT/HCPCS: 36415; 85014; 85018

== ENCOUNTER → 2022-04-09 09:04 | Outpatient (CLI) | payer MEDICARE, SELFPAY ==
[2022-04-09 10:02] VITALS: BP 155/59; PULSE 68; RESP 18; TEMP 36.6; O2SAT 99
[2022-04-09] MEDS: EPOETIN ALFA-EPBX 10,000 UNIT/ML VIAL 10000 UNIT SUBCUT (10:30)
--- NOTE | 2022-04-09 12:01 | ONC.PHA ---
Addendum entered by Brittney Granados R.N. 04/09/22 15:39: Ongoing orders. Call to Dr Valencia's office requesting that Dr Valencia provide ongoing orders for patient's EPO( see note below)Left detailed message and pharmacy note faxed with request for orders.Call to Dr Jiménez's office to request updated med list and informed them of request for ongoing orders from nephrology. Met with pt and this am.Reviewed plan of care ; weekly labs x 2 with EPO if parameters met.They understand that further orders are needed as care in [place] is not set up but [facility] does have a [employer] inspector there who they plan to contact re; EPO. Provided written drug info and discussed monitoring of blood pressure and labs to avoid serious SE's along with other side effects noted though not common ie; 1-10 % incidence. B/P meds do not coincide with meds listed in ethority; updated with list from PCP. Message left for patient that we are seeking further EPO orders from Dr Valencia vs Dr Jiménez Original Note: EPO Injection: S/O: 82 y.o. female, with diagnosis of anemia with CKD, is here to start EPO 10,000 units SubQ injection every weekly x 2 doses, with holding parameters as following: (1) HOLD first EPO dose if Hgb above or equal 10, (2) HOLD second EPO dose if Hgb aboe or equal to 11, and HOLD EPO dose if SBP above or equal 180. Draw Hgb/Hct prior to each EPO dose. Order is written by Dr. Brionna Jiménez on 03/18/2022. A/P: Reviewed today labs: Hgb/Hct = 9.1/27.3 Today BP = 155/59 Iron panel (02/18/2022): Transferrin = 249, % Sat = 21, TIBC = 361, Iron = 76 all are WNL Vitamin B12 (02/18/2022) = 956 (H) Folate (01/15/2022) = > 20.0 (H) Plan to proceed with today EPO dose as Hgb is below 10. Please note: this pharmacist spoke to Dr. Brionna Jiménez on 04/02/2022. Patient is leaving to go to [place] soon for the winter. Dr. Jiménez, patient?s PCP, is only ordered 2 doses of EPO for this patient. Patient is to establish with a [employer] in [facility]. If patient is not leaving for [place] soon, any further EPO order would need to come from Dr. Deanna Valencia, patient's [employer] ([phone]). RN is to provide patient with the information as above. Allergies Allergy/AdvReac Type Severity Reaction Status Date / Time No Known Allergies Allergy Uncoded 01/30/20 11:04 Diagnosis Chronic kidney disease, unspecified 04/09/22 Vital Signs Temperature 98 F 04/09/22 10:02 Pulse Rate 68 04/09/22 10:02 Respiratory Rate 18 04/09/22 10:02 Blood Pressure 155/59 04/09/22 10:02 Pulse Oximetry 99 04/09/22 10:02
== END ==
PROVIDERS: PCP Internal Medicine; Referring Provider Internal Medicine; Visit Provider Internal Medicine
DX: N18.4 Chronic kidney disease, stage 4 (severe) (principal); D63.1 Anemia in chronic kidney disease
CPT/HCPCS: 36415; 85014; 85018; 96372; Q5106

== ENCOUNTER 2022-04-13 15:57 | Emergency (ER) | payer MEDICARE, SELFPAY ==
[2022-04-13] VITALS (14 sets, daily range): BP systolic 132–190; BP diastolic 60–89; PULSE 81–97; RESP 15–22; TEMP 36.8–37.2; O2SAT 94–98
--- NOTE | 2022-04-13 16:19 | DI.RAD.S_ITS ---
PROCEDURE: XR CHEST 1V INDICATIONS: chest pain TECHNIQUE: One view of the chest was acquired. COMPARISON: [facility], CT, CT CERVICAL SPINE WO CON, 04/13/2022, 16:32. [facility], CT, CT HEAD/BRAIN WO CON, 04/13/2022, 16:32. [facility], CR, CHEST 1 VIEW, 11/12/2015, 13:06. FINDINGS: Surgical changes and devices: None. Lungs and pleura: Patchy bilateral interstitial infiltrates are seen. Low lung volumes are noted. This causes a crowded appearance to the lung markings and limits evaluation. On this semiupright portable chest examination, no large pneumothorax or large pleural effusions are seen. Mediastinum: The cardiac contours are moderately enlarged. The aorta demonstrates calcification and tortuosity. Bones and chest wall: Age-appropriate bony degenerative changes are seen. No suspicious bony lesions. Overlying soft tissues appear unremarkable. IMPRESSION: Low lung volumes with patchy bilateral interstitial infiltrates. Please consider atypical infection versus pulmonary edema. Moderate cardiomegaly. Dictated by: Alonso Villegas M.D. on 04/13/2022 at 16:00 Approved by: Alonso Villegas M.D. on 04/13/2022 at 16:01
--- NOTE | 2022-04-13 16:19 | DI.CT.S_ITS ---
PROCEDURE: CT CERVICAL SPINE WO CON INDICATIONS: trauma TECHNIQUE: Noncontrast 3 mm thick sections acquired from the skull base to the T4 level. Sagittal and coronal reformats were then constructed. For radiation dose reduction, the following was used: automated exposure control, adjustment of mA and/or kV according to patient size. COMPARISON: [facility], CR, XR CHEST 1V, 04/13/2022, 16:24. [facility], CT, CT HEAD/BRAIN WO CON, 04/13/2022, 16:32. [facility], CT, ANGIO NECK WITH CONTRAST, 01/07/2012, 9:54. FINDINGS: Image quality: There is artifact associated with the metallic hardware. Bones: No fractures or dislocations. Visualized superior ribs are intact. Focal degenerative change is seen involving the C1-C2 interface anteriorly. Mild disc space narrowing is seen at C3-C4. Moderate disc space narrowing can be seen at C4-C5, with moderate to severe disc space narrowing at C5-C6 and C6-C7. Endplate irregularity and sclerosis are seen. Soft tissues: Prevertebral soft tissues are normal in thickness. No paravertebral hematomas. No apical pneumothoraces. Abnormal infiltrates can be seen involving the visualized lung apices, which is worst within the right upper lobe. Atherosclerotic calcification is noted. IMPRESSION: Negative for fracture. Pulmonary infiltrates are seen, worst within the right upper lobe. Cervical spine degenerative changes are seen, which are worst at C5-C6 and C6-C7. Dictated by: Alonso Villegas M.D. on 04/13/2022 at 16:01 Approved by: Alonso Villegas M.D. on 04/13/2022 at 16:05
--- NOTE | 2022-04-13 16:19 | DI.CT.S_ITS ---
PROCEDURE: CT HEAD/BRAIN WO CON INDICATIONS: trauma TECHNIQUE: Noncontrast 4.5 mm thick angled axial sections acquired from the foramen magnum to the vertex, with coronal and sagittal reformats. For radiation dose reduction, the following was used: automated exposure control, adjustment of mA and/or kV according to patient size. COMPARISON: [facility], RG, CT HEAD W/O CONTRAST, 08/02/2014, 12:46. [facility], CT, CT CERVICAL SPINE WO CON, 04/13/2022, 16:32. [facility], CR, XR CHEST 1V, 04/13/2022, 16:24. [facility], CT, CT HEAD/BRAIN WO CON, 01/27/2018, 18:32. FINDINGS: Image quality: Excellent. CSF spaces: Basal cisterns are patent. No extra-axial fluid collections. The ventricles are symmetric in size and shape. Brain: No intracranial bleeds or masses. There is cerebral volume loss for age, with resultant ventricular and sulcal prominence. There are periventricular and deep white matter chronic small vessel ischemic changes. Areas of stable remote patchy ischemia can be seen. There is intracranial internal carotid artery atherosclerosis. Skull and face: Calvarium and visualized facial bones appear intact, without suspicious lesions. Incidental note is made of hyperostosis frontalis. This is not considered to be pathologic in a woman of this age. Sinuses: Visualized sinuses and mastoids are clear. IMPRESSION: Stable intracranial study, without acute intracranial hemorrhage or calvarial fracture. Stable areas of remote patchy ischemia can be seen. Note is made of age-appropriate brain parenchymal volume loss and chronic small vessel ischemic changes. Dictated by: Alonso Villegas M.D. on 04/13/2022 at 16:05 Approved by: Alonso Villegas M.D. on 04/13/2022 at 16:06
--- NOTE | 2022-04-13 16:31 | ED.FALL ---
HPI - Fall <Javier Diaz PA-C - Last Filed: 04/13/22 18:28> General Chief Complaint: Trauma Stated Complaint: Hx Anemia & Afib/Dropping Things/Fall/Weakness Time Seen by Provider: 04/13/22 16:30 Source: patient and family Mode of arrival: Wheelchair History of Present Illness HPI Narrative: Patient is a 82-year-old female who presents to emergency room today with complaint throbbing pains for the last 2 days. States she has problems holding things like plates, bottles and sandwich is. Also states she had a fall yesterday. Describes the fall as slowly falling back and landing on her butt without much impact. Denies any trauma to it. Also admits to a newly diagnosed history of anemia that was diagnosed about 2 weeks ago. States she took a shot of Procrit on Thursday and has another side scheduled for next week. Pacer hemoglobin was checked few days ago and it was 9.1 and is concerned about what it is today. States her primary care provider is Dr. Jiménez at her clinic and she also has human anatomy teacher Dr. Davida oden that she saw about 3 months ago. Patient sees Tadeo Valle for her chronic atrial fibrillation condition. Related Data Home Medications Medication Instructions Recorded Confirmed atorvastatin 40 mg tablet 40 mg PO QPM 12/01/17 01/11/19 multivitamin 1 cap PO DAILY 12/01/17 01/11/19 clonidine HCl 0.1 mg tablet 1 tab PO PRN PRN Blood Pressure 01/27/18 01/11/19 levothyroxine 50 mcg tablet 1 tab PO DAILY 01/27/18 01/11/19 gabapentin 300 mg capsule 900 mg PO BEDTIME 01/11/19 01/11/19 metoprolol tartrate 25 mg tablet 50 mg PO BID 01/11/19 01/11/19 warfarin 3 mg tablet 3 mg PO DAILY 01/30/20 01/30/20 Vitamin D3 25 mcg 04/09/22 cyanocobalamin (vitamin B-12) mcg 04/09/22 1,000 mcg tablet diltiazem HCl 120 mg tablet mg DAILY 04/09/22 hydralazine 25 mg tablet mg TID 04/09/22 magnesium 250 mg 04/09/22 Previous Rx's Medication Instructions Recorded amoxicillin 500 mg tablet 1,000 mg PO TID #15 tabs 04/13/22 Allergies Allergy/AdvReac Type Severity Reaction Status Date / Time No Known Allergies Allergy Uncoded 01/30/20 11:04 Review of Systems <Javier Diaz PA-C - Last Filed: 04/13/22 18:28> Review of Systems Narrative: R.O.S.: General: No fever, chills or fatigue. Cardiovascular: No chest pain or palpitations Respiratory: No S.O.B. HEENT: No congestion, ear pain, rhinorrhea, sore throat or tinnitus Gastrointestinal: No nausea or vomiting : No urinary concerns Skin: No rash or associated abnormalities Musculoskeletal: Extremity weakness? Neurological: Awake, alert and in not apparent distress. No Headaches, changes in vision or other related neurological concerns. Patient History <Javier Diaz PA-C - Last Filed: 04/13/22 18:28> Medical History (Updated 04/13/22 @ 18:16 by Javier Diaz PA-C) Atrial fibrillation Bladder cancer Surgical History H/O total cystectomy (03/2014) Status post total abdominal hysterectomy and bilateral salpingo-oophorectomy (ANGELA-BSO) (03/2014) Social History Smoking Status: Former smoker Smoking Status: Former smoker alcohol intake frequency: holidays/special occasions only Substance Use Type: does not use Exam <Javier Diaz PA-C - Last Filed: 04/13/22 18:28> Narrative Exam Narrative: Physical Exam: ? General: normal appearance, well developed, well nourished, alert, and awake. Not in acute distress. ? Head: Normocephalic, no lesions. Chest: Lungs CTAB, no rales, rhonchi or wheezes. ?? Heart: RRR, no murmurs, rubs or gallops. Eyes: PERRLA, EOM's full, conjunctivae clear. ? Neuro: Physiological, no localizing findings, CN3-12 intact. ?Patient's NIH stroke score 0. Extremities: Warm, well perfused, FROM, no deformities, no edema. ?? Skin: Normal, no rashes, no lesions noted. ?? PSYCHIATRIC: The mood is good, no blunted affect. Speech is clear. Thought process is linear, thought content is appropriate. The voice is without significant inflection. Gastrointestinal: Soft; NT; ND; Pos BS with Neg. rebound tenderness. No scars or major deformities noted on Visual Inspection. Initial Vital Signs Initial Vital Signs: Vital Signs Temperature 98.9 F 04/13/22 16:09 Pulse Rate 85 04/13/22 16:09 Respiratory Rate 22 04/13/22 16:09 Blood Pressure 132/60 04/13/22 16:09 Pulse Oximetry 97 04/13/22 16:09 Oxygen Delivery Method 04/13/22 16:09 <Misa Wolf DO - Last Filed: 04/14/22 07:05> Initial Vital Signs Initial Vital Signs: Vital Signs Temperature 98.9 F 04/13/22 16:09 Pulse Rate 85 04/13/22 16:09 Respiratory Rate 22 04/13/22 16:09 Blood Pressure 132/60 04/13/22 16:09 Pulse Oximetry 97 04/13/22 16:09 Oxygen Delivery Method 04/13/22 16:09 Course <Javier Diaz PA-C - Last Filed: 04/13/22 18:28> Orders Ordered: Discontinued Medications Amoxicillin (Amoxicillin 250 Mg Capsule) 1,000 mg PO NOW ONE Stop: 04/13/22 18:35 Last Admin: 04/13/22 18:39 Dose: 1,000 mg Documented By: AMY Vital Signs Vital signs: Vital Signs - 8 hr 04/13/22 16:09 04/13/22 16:18 04/13/22 16:41 Temperature 98.9 F Pulse Rate 85 97 H 81 Respiratory Rate 22 Blood Pressure 132/60 Pulse Oximetry 97 94 98 Oxygen Delivery Method Room Air 04/13/22 16:45 04/13/22 17:00 04/13/22 17:15 Temperature Pulse Rate 86 90 92 H Respiratory Rate 17 16 17 Blood Pressure Pulse Oximetry 96 95 96 Oxygen Delivery Method 04/13/22 17:30 04/13/22 17:34 04/13/22 17:34 Temperature Pulse Rate 88 91 H Respiratory Rate 15 16 Blood Pressure 145/89 H Pulse Oximetry 94 96 Oxygen Delivery Method 04/13/22 17:45 04/13/22 18:00 04/13/22 18:00 Temperature Pulse Rate 96 H 95 H Respiratory Rate 20 17 Blood Pressure 165/73 H Pulse Oximetry 96 96 Oxygen Delivery Method Room Air 04/13/22 18:15 04/13/22 18:47 04/13/22 18:30 Temperature 98.3 F Pulse Rate 93 H 91 H 92 H Respiratory Rate 19 18 19 Blood Pressure 190/88 H Pulse Oximetry 96 97 97 Oxygen Delivery Method Room Air 04/13/22 18:31 04/13/22 18:31 Temperature Pulse Rate 94 H Respiratory Rate 18 Blood Pressure 162/75 H Pulse Oximetry 97 Oxygen Delivery Method Room Air <Misa Wolf DO - Last Filed: 04/14/22 07:05> Orders Ordered: Discontinued Medications Amoxicillin (Amoxicillin 250 Mg Capsule) 1,000 mg PO NOW ONE Stop: 04/13/22 18:35 Last Admin: 04/13/22 18:39 Dose: 1,000 mg Documented By: RB Vital Signs Vital signs: Vital Signs - 8 hr 04/13/22 16:09 04/13/22 16:18 04/13/22 16:41 Temperature 98.9 F Pulse Rate 85 97 H 81 Respiratory Rate 22 Blood Pressure 132/60 Pulse Oximetry 97 94 98 Oxygen Delivery Method Room Air 04/13/22 16:45 04/13/22 17:00 04/13/22 17:15 Temperature Pulse Rate 86 90 92 H Respiratory Rate 17 16 17 Blood Pressure Pulse Oximetry 96 95 96 Oxygen Delivery Method 04/13/22 17:30 04/13/22 17:34 04/13/22 17:34 Temperature Pulse Rate 88 91 H Respiratory Rate 15 16 Blood Pressure 145/89 H Pulse Oximetry 94 96 Oxygen Delivery Method 04/13/22 17:45 04/13/22 18:00 04/13/22 18:00 Temperature Pulse Rate 96 H 95 H Respiratory Rate 20 17 Blood Pressure 165/73 H Pulse Oximetry 96 96 Oxygen Delivery Method Room Air 04/13/22 18:15 04/13/22 18:47 04/13/22 18:30 Temperature 98.3 F Pulse Rate 93 H 91 H 92 H Respiratory Rate 19 18 19 Blood Pressure 190/88 H Pulse Oximetry 96 97 97 Oxygen Delivery Method Room Air 04/13/22 18:31 04/13/22 18:31 Temperature Pulse Rate 94 H Respiratory Rate 18 Blood Pressure 162/75 H Pulse Oximetry 97 Oxygen Delivery Method Room Air MDM - Fall <Javier Diaz PA-C - Last Filed: 04/13/22 18:28> Lab Data Result diagrams: 04/13/22 16:24 04/13/22 16:24 Labs: Lab Results 04/13/22 04/13/22 04/13/22 Range/Units 16:24 16:24 16:24 WBC 9.3 (4.5-11.0) X10^3/uL RBC 3.07 L (4.0-5.2) X10^6/uL Hgb 8.8 L (12.0-16.0) g/dL Hct 26.1 L (36-46) % MCV 85.1 (80-100) fL MCH 28.7 (26-34) PG MCHC 33.7 (30-36) % RDW 18.8 H (11.6-14.8) % Plt Count 205 (150-400) X10^3/uL Neut % (Auto) 83.3 H (50-75) % Lymph % (Auto) 4.1 L (25-40) % Roosevelt % (Auto) 12.0 (3-14) % Eos % (Auto) 0.0 L (2-4) % Baso % (Auto) 0.6 (0-2) % Neut # (Auto) 7800 H (6861-6258) /uL Lymph # (Auto) 400 L (2324-0043) /uL Roosevelt # (Auto) 1100 H (0-900) /uL Eos # (Auto) 0 (0-450) /uL Baso # (Auto) 100 (0-100) /uL PT 36.3 H (10.1-12.7) SECONDS INR 3.1 H (0.9-1.3) Sodium 137 (137-145) mmol/L Potassium 4.6 (3.4-5.1) mmol/L Chloride 103 (98-107) mmol/L Carbon Dioxide 23 (22-32) mmol/L BUN 50 H (7-17) mg/dL Creatinine 2.79 H (0.52-1.04) mg/dL Estimated GFR 17 L (>60) mL/min BUN/Creatinine Ratio 17.9 (6-22) Glucose 112 H (80-110) mg/dL Calcium 9.0 (8.4-10.2) mg/dL Magnesium 2.0 (1.6-2.3) mg/dL Total Bilirubin 0.8 (0.2-1.3) mg/dL AST 27 (14-36) IU/L ALT 18 (<35) IU/L Alkaline Phosphatase 70 (38-126) U/L Total Creatine Kinase 44 (30-135) U/L CK-MB (CK-2) TNP CK-MB (CK-2) Rel Index TNP Troponin I 0.019 (0.01-0.034) ng/mL NT-Pro-B Natriuret Pep (<450) pg/mL Total Protein 7.3 (6.3-8.2) g/dL Albumin 3.8 (3.5-5.0) g/dL Globulin 3.5 (1.7-4.1) g/dL Albumin/Globulin Ratio 1.1 (1.0-2.8) Lipase 124 (23-300) U/L SARS-CoV-2 (PCR) (Negative) 04/13/22 04/13/22 Range/Units 16:24 17:32 WBC (4.5-11.0) X10^3/uL RBC (4.0-5.2) X10^6/uL Hgb (12.0-16.0) g/dL Hct (36-46) % MCV (80-100) fL MCH (26-34) PG MCHC (30-36) % RDW (11.6-14.8) % Plt Count (150-400) X10^3/uL Neut % (Auto) (50-75) % Lymph % (Auto) (25-40) % Roosevelt % (Auto) (3-14) % Eos % (Auto) (2-4) % Baso % (Auto) (0-2) % Neut # (Auto) (1859-2264) /uL Lymph # (Auto) (1335-4322) /uL Roosevelt # (Auto) (0-900) /uL Eos # (Auto) (0-450) /uL Baso # (Auto) (0-100) /uL PT (10.1-12.7) SECONDS INR (0.9-1.3) Sodium (137-145) mmol/L Potassium (3.4-5.1) mmol/L Chloride (98-107) mmol/L Carbon Dioxide (22-32) mmol/L BUN (7-17) mg/dL Creatinine (0.52-1.04) mg/dL Estimated GFR (>60) mL/min BUN/Creatinine Ratio (6-22) Glucose (80-110) mg/dL Calcium (8.4-10.2) mg/dL Magnesium (1.6-2.3) mg/dL Total Bilirubin (0.2-1.3) mg/dL AST (14-36) IU/L ALT (<35) IU/L Alkaline Phosphatase (38-126) U/L Total Creatine Kinase (30-135) U/L CK-MB (CK-2) CK-MB (CK-2) Rel Index Troponin I (0.01-0.034) ng/mL NT-Pro-B Natriuret Pep 37807 H (<450) pg/mL Total Protein (6.3-8.2) g/dL Albumin (3.5-5.0) g/dL Globulin (1.7-4.1) g/dL Albumin/Globulin Ratio (1.0-2.8) Lipase (23-300) U/L SARS-CoV-2 (PCR) Negative (Negative) Imaging Data CT scan - head: Radiologist's Impression: [place] [address] CT Scan Report Signed Patient: Barbara Wheat MR#: [id number] : 1940 Acct:[id number] Age/Sex: 82 / F Date of Service: 04/13/22 Loc: ED Accession Number: [id number] ?? Procedure: CT head/brain wo con Ordering Provider: Misa Wolf D.O. PROCEDURE:? CT HEAD/BRAIN WO CON ? INDICATIONS:? trauma ? TECHNIQUE:? Noncontrast 4.5 mm thick angled axial sections acquired from the foramen magnum to the vertex, with coronal and sagittal reformats.? For radiation dose reduction, the following was used:? automated exposure control, adjustment of mA and/or kV according to patient size.? ? COMPARISON:? Outside Facility, RG, CT HEAD W/O CONTRAST, 08/02/2014, 12:46.? [facility], CT, CT CERVICAL SPINE WO CON, 04/13/2022, 16:32.? [facility], CR, XR CHEST 1V, 04/13/2022, 16:24.? [facility], CT, CT HEAD/BRAIN WO CON, 01/27/2018, 18:32. ? FINDINGS:? Image quality:? Excellent.? ? CSF spaces:? Basal cisterns are patent.? No extra-axial fluid collections.? The ventricles are symmetric in size and shape.? ? Brain:? No intracranial bleeds or masses.? There is cerebral volume loss for age, with resultant ventricular and sulcal prominence.? There are periventricular and deep white matter chronic small vessel ischemic changes.? Areas of stable remote patchy ischemia can be seen.? There is intracranial internal carotid artery atherosclerosis.? ? Skull and face:? Calvarium and visualized facial bones appear intact, without suspicious lesions.? Incidental note is made of hyperostosis frontalis. This is not considered to be pathologic in a woman of this age. ? Sinuses:? Visualized sinuses and mastoids are clear.? ? ? IMPRESSION:? Stable intracranial study, without acute intracranial hemorrhage or calvarial fracture. ? Stable areas of remote patchy ischemia can be seen. ? Note is made of age-appropriate brain parenchymal volume loss and chronic small vessel ischemic changes. ? ? Dictated by: Alonso Villegas M.D. on 04/13/2022 at 16:05 ? ? Approved by: Alonso Villegas M.D. on 04/13/2022 at 16:06 ? CT - cervical spine: Radiologist's Impression: [place] [address] CT Scan Report Signed Patient: Barbara Wheat MR#: [id number] : 1940 Acct:[id number] Age/Sex: 82 / F Date of Service: 04/13/22 Loc: ED Accession Number: [id number] ?? Procedure: CT cervical spine wo con Ordering Provider: Misa Wolf D.O. PROCEDURE:? CT CERVICAL SPINE WO CON ? INDICATIONS:? trauma ? TECHNIQUE:? Noncontrast 3 mm thick sections acquired from the skull base to the T4 level.? Sagittal and coronal reformats were then constructed.? For radiation dose reduction, the following was used:? automated exposure control, adjustment of mA and/or kV according to patient size.? ? COMPARISON:? [facility], CR, XR CHEST 1V, 04/13/2022, 16:24.? [facility], CT, CT HEAD/BRAIN WO CON, 04/13/2022, 16:32.? [facility], CT, ANGIO NECK WITH CONTRAST, 01/07/2012, 9:54. ? FINDINGS:? Image quality:? There is artifact associated with the metallic hardware. ? ? Bones:? No fractures or dislocations.? Visualized superior ribs are intact.? ? Focal degenerative change is seen involving the C1-C2 interface anteriorly. Mild disc space narrowing is seen at C3-C4.? Moderate disc space narrowing can be seen at C4-C5, with moderate to severe disc space narrowing at C5-C6 and C6-C7.? Endplate irregularity and sclerosis are seen. ? Soft tissues:? Prevertebral soft tissues are normal in thickness.? No paravertebral hematomas.? No apical pneumothoraces.? Abnormal infiltrates can be seen involving the visualized lung apices, which is worst within the right upper lobe. ? Atherosclerotic calcification is noted.? ? ? IMPRESSION:? Negative for fracture. ? Pulmonary infiltrates are seen, worst within the right upper lobe. ? Cervical spine degenerative changes are seen, which are worst at C5-C6 and C6-C7. ? ? ? Dictated by: Alonso Villegas M.D. on 04/13/2022 at 16:01 ? ? Approved by: Alonso Villegas M.D. on 04/13/2022 at 16:05 ? Chest x-ray: Radiologist's Impression: [address] [address] XRay Report Signed Patient: Barbara Wheat MR#: [id number] : 1940 Acct:[id number] Age/Sex: 82 / F Date of Service: 04/13/22 Loc: ED Accession Number: [id number] ?? Procedure: XR chest 1V Ordering Provider: Misa Wolf D.O. PROCEDURE:? XR CHEST 1V ? INDICATIONS:? chest pain ? TECHNIQUE:? One view of the chest was acquired.? ? COMPARISON:? [facility], CT, CT CERVICAL SPINE WO CON, 04/13/2022, 16:32.? [facility], CT, CT HEAD/BRAIN WO CON, 04/13/2022, 16:32.? [facility], CR, CHEST 1 VIEW, 11/12/2015, 13:06. ? FINDINGS:? ? Surgical changes and devices:? None.? ? Lungs and pleura:? Patchy bilateral interstitial infiltrates are seen. Low lung volumes are noted. This causes a crowded appearance to the lung markings and limits evaluation.? On this semiupright portable chest examination, no large pneumothorax or large pleural effusions are seen.? ? Mediastinum:? The cardiac contours are moderately enlarged. The aorta demonstrates calcification and tortuosity. ? Bones and chest wall:? Age-appropriate bony degenerative changes are seen.? No suspicious bony lesions.? Overlying soft tissues appear unremarkable.? IMPRESSION:? Low lung volumes with patchy bilateral interstitial infiltrates. ? Please consider atypical infection versus pulmonary edema. ? Moderate cardiomegaly. ? ? Dictated by: Alonso Villegas M.D. on 04/13/2022 at 16:00 ? ? Approved by: Alonso Villegas M.D. on 04/13/2022 at 16:01 ? MDM Narrative Medical decision making narrative: Presents emergency room with complaint problems holding onto things for the last couple days. Patient admits to a recent diagnosis anemia but 2 weeks ago. Patient also has a chronic history of atrial fibrillation and is being treated with warfarin. Labs and diagnostics 30 studies are positive for right lung infiltrates. Plan to treat with antibiotics plan to have patient follow-up primary care provider in regards to her anemia. <Misa Wolf, DO - Last Filed: 04/14/22 07:05> Lab Data Labs: Lab Results 04/13/22 04/13/22 04/13/22 Range/Units 16:24 16:24 16:24 WBC 9.3 (4.5-11.0) X10^3/uL RBC 3.07 L (4.0-5.2) X10^6/uL Hgb 8.8 L (12.0-16.0) g/dL Hct 26.1 L (36-46) % MCV 85.1 (80-100) fL MCH 28.7 (26-34) PG MCHC 33.7 (30-36) % RDW 18.8 H (11.6-14.8) % Plt Count 205 (150-400) X10^3/uL Neut % (Auto) 83.3 H (50-75) % Lymph % (Auto) 4.1 L (25-40) % Roosevelt % (Auto) 12.0 (3-14) % Eos % (Auto) 0.0 L (2-4) % Baso % (Auto) 0.6 (0-2) % Neut # (Auto) 7800 H (0536-7273) /uL Lymph # (Auto) 400 L (2962-4392) /uL Roosevelt # (Auto) 1100 H (0-900) /uL Eos # (Auto) 0 (0-450) /uL Baso # (Auto) 100 (0-100) /uL PT 36.3 H (10.1-12.7) SECONDS INR 3.1 H (0.9-1.3) Sodium 137 (137-145) mmol/L Potassium 4.6 (3.4-5.1) mmol/L Chloride 103 (98-107) mmol/L Carbon Dioxide 23 (22-32) mmol/L BUN 50 H (7-17) mg/dL Creatinine 2.79 H (0.52-1.04) mg/dL Estimated GFR 17 L (>60) mL/min BUN/Creatinine Ratio 17.9 (6-22) Glucose 112 H (80-110) mg/dL Calcium 9.0 (8.4-10.2) mg/dL Magnesium 2.0 (1.6-2.3) mg/dL Total Bilirubin 0.8 (0.2-1.3) mg/dL AST 27 (14-36) IU/L ALT 18 (<35) IU/L Alkaline Phosphatase 70 (38-126) U/L Total Creatine Kinase 44 (30-135) U/L CK-MB (CK-2) TNP CK-MB (CK-2) Rel Index TNP Troponin I 0.019 (0.01-0.034) ng/mL NT-Pro-B Natriuret Pep (<450) pg/mL Total Protein 7.3 (6.3-8.2) g/dL Albumin 3.8 (3.5-5.0) g/dL Globulin 3.5 (1.7-4.1) g/dL Albumin/Globulin Ratio 1.1 (1.0-2.8) Lipase 124 (23-300) U/L SARS-CoV-2 (PCR) (Negative) 04/13/22 04/13/22 Range/Units 16:24 17:32 WBC (4.5-11.0) X10^3/uL RBC (4.0-5.2) X10^6/uL Hgb (12.0-16.0) g/dL Hct (36-46) % MCV (80-100) fL MCH (26-34) PG MCHC (30-36) % RDW (11.6-14.8) % Plt Count (150-400) X10^3/uL Neut % (Auto) (50-75) % Lymph % (Auto) (25-40) % Roosevelt % (Auto) (3-14) % Eos % (Auto) (2-4) % Baso % (Auto) (0-2) % Neut # (Auto) (4284-7268) /uL Lymph # (Auto) (9442-3546) /uL Roosevelt # (Auto) (0-900) /uL Eos # (Auto) (0-450) /uL Baso # (Auto) (0-100) /uL PT (10.1-12.7) SECONDS INR (0.9-1.3) Sodium (137-145) mmol/L Potassium (3.4-5.1) mmol/L Chloride (98-107) mmol/L Carbon Dioxide (22-32) mmol/L BUN (7-17) mg/dL Creatinine (0.52-1.04) mg/dL Estimated GFR (>60) mL/min BUN/Creatinine Ratio (6-22) Glucose (80-110) mg/dL Calcium (8.4-10.2) mg/dL Magnesium (1.6-2.3) mg/dL Total Bilirubin (0.2-1.3) mg/dL AST (14-36) IU/L ALT (<35) IU/L Alkaline Phosphatase (38-126) U/L Total Creatine Kinase (30-135) U/L CK-MB (CK-2) CK-MB (CK-2) Rel Index Troponin I (0.01-0.034) ng/mL NT-Pro-B Natriuret Pep 16372 H (<450) pg/mL Total Protein (6.3-8.2) g/dL Albumin (3.5-5.0) g/dL Globulin (1.7-4.1) g/dL Albumin/Globulin Ratio (1.0-2.8) Lipase (23-300) U/L SARS-CoV-2 (PCR) Negative (Negative) ECG Data Attestation: I personally reviewed and interpreted this ECG as follows: Interpretation: AFib rate of 102 QRS 88 QTC 461. No acute ST elevation. Intermittent PVC. No acute changes. Discharge Plan Departure Patient Disposition: Home Clinical Impression: Fall, Pneumonia, Anemia, Atrial fibrillation Instructions: DI for Pneumonia -- Adult, DI for Atrial Fibrillation, How to Prevent Falls Activity Restrictions/Additional Instructions: *You have been diagnosed with a newly aquired pneumonia. I have ordered antibiotics to treat your pneumonia and suggest follow-up with your primary care provider in regards to your continued anemia. [ ] *What to do: *Please continue to take your regular medications as directed. [x] New medication prescriptions sent to your pharmacy: [ ] [ ] New medication written as a paper prescription [ ] No new medications given *Please follow up with your primary care provider in 2-3 days, call for an appointment. Let them know you were seen in the Emergency Department and that we ask that you be seen in follow up. We will electronically transmit a record of today's note if your PCP is in our system *If you do not have a primary care provider please contact the [facility] Resource line at [phone]. They will ask some questions about your medical history and help get you set up with a doctor in the community. *Return to Emergency Department if you should have any new, worsening or concerning symptoms, such as [fever greater than 101 F, shaking chills, worsening pain, persistent vomiting or other bothersome symptoms] Prescriptions: New amoxicillin 500 mg tablet 1,000 mg PO TID Qty: 15 0RF No Action atorvastatin 40 mg tablet 40 mg PO QPM multivitamin capsule 1 cap PO DAILY Label Comments: not currently taking but wants top find one that is safe with her kidney disease warfarin 3 mg tablet 3 mg PO DAILY levothyroxine 50 mcg tablet 1 tab PO DAILY clonidine HCl 0.1 mg Tablet 1 tab PO PRN PRN (Reason: Blood Pressure) Label Comments: only if needed. not routine prn gabapentin 300 mg capsule 900 mg PO BEDTIME Label Comments: need to clarify sig 1 in am 2 qhs metoprolol tartrate 25 mg tablet 50 mg PO BID hydralazine 25 mg Tablet TID diltiazem HCl 120 mg Tablet DAILY cyanocobalamin (vitamin B-12) 1,000 mcg Tablet magnesium 250 mg Vitamin D3 25 mcg Referrals: Brionna Jiménez MD [Primary Care Provider] - Visit Report Forms: Patient Portal/API <Misa Wolf DO - Last Filed: 04/14/22 07:05> Cosign ED Attending Cosjayshreeature Attestation: I was immediately available in the department for consultation. Documentation has been reviewed.
[2022-04-13 16:37] LABS: HEMOLYSIS < 15 (0-50)
[2022-04-13 16:44] LABS: Alanine Aminotransferase 18 IU/L (<35); Albumin 3.8 g/dL (3.5-5.0); Albumin Globulin Ratio 1.1 (1.0-2.8); Alkaline Phosphatase 70 U/L (38-126); Aspartate Aminotransferase 27 IU/L (14-36); BUN Creatinine Ratio 17.9 (6-22); Bilirubin Total 0.8 mg/dL (0.2-1.3); Blood Urea Nitrogen 50 mg/dL (7-17); Carbon Dioxide 23 mmol/L (22-32); Chloride 103 mmol/L (98-107); Creatine Kinase 44 U/L (30-135); Estimated Glomerular Filt Rate 17 mL/min (>60); Globulin 3.5 g/dL (1.7-4.1); Glucose 112 mg/dL (80-110); Lipase 124 U/L (23-300); Potassium 4.6 mmol/L (3.4-5.1); Sodium 137 mmol/L (137-145); Total Protein 7.3 g/dL (6.3-8.2)
[2022-04-13 16:49] LABS: INR 3.1 (0.9-1.3); Prothrombin Time 36.3 SECONDS (10.1-12.7)
[2022-04-13 16:55] LABS: Troponin I 0.019 ng/mL (0.01-0.034)
[2022-04-13 16:56] LABS: Add Manual Diff / Slide Review NO; Basophils Absolute Auto 100 /uL (0-100); Basophils Percent Auto 0.6 % (0-2); Eosinophils Absolute Auto 0 /uL (0-450); Hematocrit 26.1 % (36-46); Hemoglobin 8.8 g/dL (12.0-16.0); Lymphocytes Absolute Auto 400 /uL (1100-4500); Lymphocytes Percent Auto 4.1 % (25-40); Mean Corpuscular HGB Conc 33.7 % (30-36); Mean Corpuscular Hemoglobin 28.7 PG (26-34); Mean Corpuscular Volume 85.1 fL (80-100); Monocytes Absolute Auto 1100 /uL (0-900); Neutrophils Absolute Auto 7800 /uL (1500-7000); Neutrophils Percent Auto 83.3 % (50-75); Platelet Count 205 X10^3/uL (150-400); Red Blood Cell Count 3.07 X10^6/uL (4.0-5.2); Red Cell Distribution Width 18.8 % (11.6-14.8); White Blood Cell Count 9.3 X10^3/uL (4.5-11.0)
[2022-04-13 17:29] LABS: NT-proBNP (BNP-Adult 18+) 17700 pg/mL (<450)
[2022-04-13 18:18] LABS: COVID19 -Nasal RAPID Negative (Negative)
[2022-04-13] MEDS: AMOXICILLIN 250 MG CAPSULE 1000 MG PO (18:39)
== END 2022-04-13 18:52 | disposition home or self-care (01) ==
PROVIDERS: Emergency Medicine; Emergency Provider Physician Assistant; PCP Internal Medicine
DX: J18.9 Pneumonia, unspecified organism (principal); D64.9 Anemia, unspecified; I48.91 Unspecified atrial fibrillation; W18.30XA Fall on same level, unspecified, initial encounter; Z79.01 Long term (current) use of anticoagulants
CPT/HCPCS: 70450; 71045; 72125; 80053; 82550; 83690; 83735; 83880; 84484; 85025; 85610; 87635; 93005; 99284; C9803

== ENCOUNTER 2022-04-14 09:48 | Inpatient (IN) | payer MEDICARE, SELFPAY ==
[2022-04-14] VITALS (16 sets, daily range): BP systolic 114–182; BP diastolic 49–103; PULSE 81–119; RESP 14–22; TEMP 36.1–39.6; O2SAT 88–98; BMI 21.2
--- NOTE | 2022-04-14 10:01 | DI.RAD.S_ITS ---
PROCEDURE: XR CHEST 1V INDICATIONS: suspected sepsis TECHNIQUE: One view of the chest was acquired. COMPARISON: [facility], , XR CHEST 1V, 04/13/2022, 16:24. [facility], , CHEST 1 VIEW, 11/12/2015, 13:06. FINDINGS: Surgical changes and devices: None. Lungs and pleura: Redemonstrated patchy opacity right upper lung. Bibasilar opacities appear improved since before. No large pleural effusion or pneumothorax. Bilateral interstitial opacities present. 2.2 centimeter nodular opacity left lower lung. Mediastinum: Cardiac silhouette is enlarged. Pulmonary vasculature appears prominent. Bones and chest wall: No suspicious bony lesions. Overlying soft tissues appear unremarkable. IMPRESSION: 1. Redemonstrated right upper lung opacity, possible pneumonia in the appropriate clinical setting. 2. Cardiac silhouette is enlarged. Prominent pulmonary vasculature and interstitial opacities are suspicious for edema. 3. A 2.2 centimeter nodular opacity left lower lung, possible nodule. CT of the chest could be obtained for further evaluation if indicated. Dictated by: Jevon Joshua M.D. on 04/14/2022 at 11:05 Approved by: Jevon Joshua M.D. on 04/14/2022 at 11:07
--- NOTE | 2022-04-14 10:16 | ED_ITS ---
HPI - Fever General Chief Complaint: Fever Stated Complaint: fever and shaking Time Seen by Provider: 04/14/22 10:04 Source: patient, family and old records reviewed Mode of arrival: Family Vehicle Limitations: no limitations History of Present Illness HPI Narrative: This is an 82-year-old female with history of atrial fibrillation on warfarin and chronic anemia believed to be secondary to chronic kidney disease stage 4, hypertension, dyslipidemia. Patient presented yesterday to the emergency department with increasing weakness generally feeling unwell was found to have pneumonia on chest x-ray and also visualized on C-spine in the upper lung. Patient was discharged home with plan for antibiotics overnight developed fevers up to 103 F, shaking chills and rigors, she is had increasing weakness and had some difficulty getting about the house. She denies chest pain or shortness of breath she states she is had a cough which has been nonproductive. Denies any current nasal congestion. No nausea no vomiting. No diarrhea constipation. No black or bloody stools. She has urostomy which has had regular urine output about 8 years ago for bladder cancer. Denies new swelling of her extremities patient states she has not had significant mentation changes. She denies any drug allergies. She is not had any hospitalizations in the last 90 days. She quit smoking about 40 years ago, occasional alcohol, no illicit. Primary care is Brionna almanza she follows with Dr. Lakhani for her financial advocate. Related Data Home Medications Medication Instructions Recorded Confirmed atorvastatin 40 mg tablet 40 mg PO QPM 12/01/17 04/14/22 multivitamin 1 cap PO DAILY 12/01/17 04/14/22 levothyroxine 50 mcg tablet 1 tab PO DAILY 01/27/18 04/14/22 gabapentin 300 mg capsule 900 mg PO BEDTIME 01/11/19 04/14/22 metoprolol tartrate 25 mg tablet 50 mg PO TID 01/11/19 04/14/22 warfarin 3 mg tablet 3 mg PO BEDTIME 01/30/20 04/14/22 cyanocobalamin (vitamin B-12) 1,000 mcg PO DAILY 04/09/22 04/14/22 1,000 mcg tablet diltiazem HCl 120 mg tablet 120 mg PO BEDTIME 04/09/22 04/14/22 hydralazine 25 mg tablet 25 mg PO TID 04/09/22 04/14/22 calcium 600 mg capsule 600 mg PO DAILY 04/14/22 04/14/22 cholecalciferol (vitamin D3) 25 25 mcg PO DAILY 04/14/22 04/14/22 mcg (1,000 unit) tablet (Vitamin D3) magnesium 250 mg tablet 250 mg PO BEDTIME 04/14/22 04/14/22 Allergies Allergy/AdvReac Type Severity Reaction Status Date / Time No Known Allergies Allergy Verified 04/14/22 13:35 Review of Systems Review of Systems ROS Unobtainable: All systems reviewed & are unremarkable except as noted in HPI and below Patient History Medical History Atrial fibrillation Bladder cancer Surgical History H/O total cystectomy (03/2014) Status post total abdominal hysterectomy and bilateral salpingo-oophorectomy (ANGELA-BSO) (03/2014) Social History household members: spouse Smoking Status: Former smoker alcohol intake: current Smoking Status: Former smoker alcohol intake frequency: holidays/special occasions only Substance Use Type: does not use Exam Narrative Exam Narrative: GENERAL: Alert and oriented x three, elderly female in mild distress. Patient does have some shaking rigors. No diaphoresis. Patient feels warm to touch. HEENT: Head normocephalic, atraumatic, EOMI, pupils reactive, face symmetric, moist mucous membranes NECK: Supple, full range of motion CARDIOVASCULAR: Irregularly irregular rate and rhythm without murmurs, rubs or gallops. Mild JVD. No swelling bilateral lower extremities. RESPIRATORY: Breath sounds equal bilaterally, no wheezes rales or rhonchi, crackles, no tachypnea or accessory muscle use. ABDOMEN: Soft, nontender. Normoactive bowel sounds all 4 quadrants. No guarding or rebound, rigidity, no mass : No CVA tenderness EXTREMITIES: Normal range of motion, no clubbing or edema. Neurovascularly intact NEUROLOGICAL: Cranial nerves II through XII grossly intact. Moving all extremities SKIN: Warm, dry, no petechiae, no rashes or lesions. Initial Vital Signs Initial Vital Signs: Vital Signs Temperature 103.2 F H 10/17/22 09:59 Pulse Rate 106 H 04/14/22 09:59 Respiratory Rate 22 04/14/22 09:59 Blood Pressure 182/103 H 04/14/22 09:59 Pulse Oximetry 95 04/14/22 09:59 Oxygen Delivery Method 04/14/22 09:59 Scores CURB-65 Confusion: No BUN >19mg/dL (>7mmol/L): Yes Respiratory rate greater or equal to 30: No SBP <90mmHg or DBP less or equal to 60mmHg: No Age 65 or Older: Yes CURB-65 Total: 2 Score 0-1 Outpatient care, Score 2 Inpt vs. Obs, Score 3 or over Inpt admit with ICU for score of 4-5 Course Orders Ordered: ED Orders 04/14/22 10:20 COVID19 -Nasal RAPID/Pre-Proc Stat 04/14/22 10:50 Blood Culture Stat Acetaminophen (Acetaminophen 325 Mg Tablet) 650 mg PO Q6HR PRN PRN Reason: Fever/Mild Pain (1-3) Atorvastatin Calcium (Atorvastatin 20 Mg Tablet) 40 mg PO QPM [facility] Last Admin: 04/14/22 18:16 Dose: 40 mg Documented By: LDV Diltiazem HCl (Diltiazem Cd 120 Mg Cap) 120 mg PO BEDTIME [facility] Gabapentin (Gabapentin 300 Mg Capsule) 900 mg PO BEDTIME [facility] Hydralazine HCl (Hydralazine 25 Mg Tablet) 25 mg PO TID [facility] Azithromycin 500 mg/ Dextrose 250 mls @ 250 mls/hr IV Q24H [facility] Ceftriaxone Sodium 1,000 mg/ (Sodium Chloride) 100 mls @ 200 mls/hr IV Q24H [facility] Levothyroxine Sodium (Levothyroxine 50 Mcg Tablet) 50 mcg PO DAILY@0600 [facility] Metoprolol Tartrate (Metoprolol Ir 25 Mg Tablet) 50 mg PO TID [facility] Ondansetron HCl (Ondansetron 4 Mg/2 Ml Inj) 4 mg IV Q8HR PRN PRN Reason: Nausea And Vomiting Warfarin Sodium (Warfarin 1 Mg Tablet) 3 mg PO 1700 [facility] Last Admin: 04/14/22 18:16 Dose: 3 mg Documented By: LDV Discontinued Medications Acetaminophen (Acetaminophen 325 Mg Tablet) 975 mg PO NOW ONE Stop: 04/14/22 10:05 Last Admin: 04/14/22 10:18 Dose: 975 mg Documented By: [facility] Sodium Chloride (Normal Saline 0.9%) 1,000 mls @ 1,000 mls/hr IV BOLUS ONE Stop: 04/14/22 11:00 Last Infusion: 04/14/22 11:50 Dose: 0 mls/hr Documented By: Admin: 04/14/22 10:18 Dose: 1,000 mls/hr Documented By: TO Ceftriaxone Sodium 2,000 mg/ (Sodium Chloride) 100 mls @ 200 mls/hr IV NOW ONE Stop: 04/14/22 10:32 Last Infusion: 04/14/22 11:50 Dose: 0 mls/hr Documented By: Admin: 04/14/22 10:59 Dose: 200 mls/hr Documented By: SYLVESTER Azithromycin 500 mg/ Dextrose 250 mls @ 250 mls/hr IV NOW ONE Stop: 04/14/22 10:32 Last Infusion: 04/14/22 13:14 Dose: 0 mls/hr Documented By: Admin: 04/14/22 11:54 Dose: 250 mls/hr Documented By: SYLVESTER Ceftriaxone Sodium 1,000 mg/ (Sodium Chloride) 100 mls @ 200 mls/hr IV Q24H [facility] Last Admin: 04/14/22 14:29 Dose: Not Given Documented By: CECY Azithromycin 500 mg/ Dextrose 250 mls @ 250 mls/hr IV Q24H [facility] Last Admin: 04/14/22 14:29 Dose: Not Given Documented By: CECY Vital Signs Vital signs: Vital Signs - 8 hr 04/14/22 11:51 04/14/22 11:30 04/14/22 11:58 Temperature 101 F H Pulse Rate 98 H Respiratory Rate 22 Blood Pressure 141/68 H Pulse Oximetry 89 L 92 Oxygen Delivery Method Room Air Room Air 04/14/22 11:20 Temperature Pulse Rate Respiratory Rate Blood Pressure Pulse Oximetry 88 L Oxygen Delivery Method Room Air MDM - Fever Lab Data Result diagrams: 04/14/22 10:00 04/14/22 10:00 Labs: Lab Results 04/14/22 04/14/22 04/14/22 Range/Units 10:00 10:00 10:00 WBC 10.4 (4.5-11.0) X10^3/uL RBC 3.33 L (4.0-5.2) X10^6/uL Hgb 9.5 L (12.0-16.0) g/dL Hct 28.8 L (36-46) % MCV 86.6 (80-100) fL MCH 28.6 (26-34) PG MCHC 33.0 (30-36) % RDW 18.8 H (11.6-14.8) % Plt Count 224 (150-400) X10^3/uL Neut % (Auto) 87.5 H (50-75) % Lymph % (Auto) 3.2 L (25-40) % Meagher % (Auto) 9.0 (3-14) % Eos % (Auto) 0.0 L (2-4) % Baso % (Auto) 0.3 (0-2) % Neut # (Auto) 9100 H (4509-1259) /uL Lymph # (Auto) 300 L (7040-9135) /uL Meagher # (Auto) 900 (0-900) /uL Eos # (Auto) 0 (0-450) /uL Baso # (Auto) 0 (0-100) /uL PT (10.1-12.7) SECONDS INR (0.9-1.3) Sodium 139 (137-145) mmol/L Potassium 4.6 (3.4-5.1) mmol/L Chloride 104 (98-107) mmol/L Carbon Dioxide 24 (22-32) mmol/L BUN 53 H (7-17) mg/dL Creatinine 2.85 H (0.52-1.04) mg/dL Estimated GFR 16 L (>60) mL/min BUN/Creatinine Ratio 18.6 (6-22) Glucose 116 H (80-110) mg/dL Lactate 1.3 (0.7-2.1) mmol/L Calcium 9.1 (8.4-10.2) mg/dL Total Bilirubin 0.9 (0.2-1.3) mg/dL AST 27 (14-36) IU/L ALT 20 (<35) IU/L Alkaline Phosphatase 82 (38-126) U/L Total Creatine Kinase (30-135) U/L CK-MB (CK-2) CK-MB (CK-2) Rel Index Troponin I (0.01-0.034) ng/mL NT-Pro-B Natriuret Pep (<450) pg/mL Total Protein 8.1 (6.3-8.2) g/dL Albumin 4.1 (3.5-5.0) g/dL Globulin 4.0 (1.7-4.1) g/dL Albumin/Globulin Ratio 1.0 (1.0-2.8) Lipase 131 (23-300) U/L Procalcitonin 0.27 (<0.5) ng/mL SARS-CoV-2 (PCR) (Negative) 04/14/22 04/14/22 04/14/22 Range/Units 10:00 10:00 10:20 WBC (4.5-11.0) X10^3/uL RBC (4.0-5.2) X10^6/uL Hgb (12.0-16.0) g/dL Hct (36-46) % MCV (80-100) fL MCH (26-34) PG MCHC (30-36) % RDW (11.6-14.8) % Plt Count (150-400) X10^3/uL Neut % (Auto) (50-75) % Lymph % (Auto) (25-40) % Meagher % (Auto) (3-14) % Eos % (Auto) (2-4) % Baso % (Auto) (0-2) % Neut # (Auto) (3387-4474) /uL Lymph # (Auto) (4321-7688) /uL Meagher # (Auto) (0-900) /uL Eos # (Auto) (0-450) /uL Baso # (Auto) (0-100) /uL PT 33.0 H (10.1-12.7) SECONDS INR 2.8 H (0.9-1.3) Sodium (137-145) mmol/L Potassium (3.4-5.1) mmol/L Chloride (98-107) mmol/L Carbon Dioxide (22-32) mmol/L BUN (7-17) mg/dL Creatinine (0.52-1.04) mg/dL Estimated GFR (>60) mL/min BUN/Creatinine Ratio (6-22) Glucose (80-110) mg/dL Lactate (0.7-2.1) mmol/L Calcium (8.4-10.2) mg/dL Total Bilirubin (0.2-1.3) mg/dL AST (14-36) IU/L ALT (<35) IU/L Alkaline Phosphatase (38-126) U/L Total Creatine Kinase 53 (30-135) U/L CK-MB (CK-2) TNP CK-MB (CK-2) Rel Index TNP Troponin I 0.030 (0.01-0.034) ng/mL NT-Pro-B Natriuret Pep (<450) pg/mL Total Protein (6.3-8.2) g/dL Albumin (3.5-5.0) g/dL Globulin (1.7-4.1) g/dL Albumin/Globulin Ratio (1.0-2.8) Lipase (23-300) U/L Procalcitonin (<0.5) ng/mL SARS-CoV-2 (PCR) Negative (Negative) 04/14/22 Range/Units 10:21 WBC (4.5-11.0) X10^3/uL RBC (4.0-5.2) X10^6/uL Hgb (12.0-16.0) g/dL Hct (36-46) % MCV (80-100) fL MCH (26-34) PG MCHC (30-36) % RDW (11.6-14.8) % Plt Count (150-400) X10^3/uL Neut % (Auto) (50-75) % Lymph % (Auto) (25-40) % Meagher % (Auto) (3-14) % Eos % (Auto) (2-4) % Baso % (Auto) (0-2) % Neut # (Auto) (6833-6333) /uL Lymph # (Auto) (7436-7724) /uL Meagher # (Auto) (0-900) /uL Eos # (Auto) (0-450) /uL Baso # (Auto) (0-100) /uL PT (10.1-12.7) SECONDS INR (0.9-1.3) Sodium (137-145) mmol/L Potassium (3.4-5.1) mmol/L Chloride (98-107) mmol/L Carbon Dioxide (22-32) mmol/L BUN (7-17) mg/dL Creatinine (0.52-1.04) mg/dL Estimated GFR (>60) mL/min BUN/Creatinine Ratio (6-22) Glucose (80-110) mg/dL Lactate (0.7-2.1) mmol/L Calcium (8.4-10.2) mg/dL Total Bilirubin (0.2-1.3) mg/dL AST (14-36) IU/L ALT (<35) IU/L Alkaline Phosphatase (38-126) U/L Total Creatine Kinase (30-135) U/L CK-MB (CK-2) CK-MB (CK-2) Rel Index Troponin I (0.01-0.034) ng/mL NT-Pro-B Natriuret Pep 06992 H (<450) pg/mL Total Protein (6.3-8.2) g/dL Albumin (3.5-5.0) g/dL Globulin (1.7-4.1) g/dL Albumin/Globulin Ratio (1.0-2.8) Lipase (23-300) U/L Procalcitonin (<0.5) ng/mL SARS-CoV-2 (PCR) (Negative) Imaging Data Chest x-ray: Radiologist's Impression: [address] [address] XRay Report Signed Patient: Barbara Wheat MR#: [id number] : 1940 Acct:[id number] Age/Sex: 82 / F Date of Service: 04/14/22 Loc: ED Accession Number: [id number] ?? Procedure: XR chest 1V Ordering Provider: Misa Wolf D.O. PROCEDURE:? XR CHEST 1V ? INDICATIONS:? suspected sepsis ? TECHNIQUE:? One view of the chest was acquired.? ? COMPARISON:? [facility], XR CHEST 1V, 04/13/2022, 16:24.? [facility], CHEST 1 VIEW, 11/12/2015, 13:06. ? FINDINGS:? ? Surgical changes and devices:? None.? ? Lungs and pleura:? Redemonstrated patchy opacity right upper lung.? Bibasilar opacities appear improved since before.? No large pleural effusion or pneumothorax.? Bilateral interstitial opacities present.? 2.2 centimeter nodular opacity left lower lung. ? Mediastinum:? Cardiac silhouette is enlarged.? Pulmonary vasculature appears prominent. ? Bones and chest wall:? No suspicious bony lesions.? Overlying soft tissues appear unremarkable.? ? IMPRESSION:? 1. Redemonstrated right upper lung opacity, possible pneumonia in the a ppropriate clinical setting.? 2. Cardiac silhouette is enlarged.? Prominent pulmonary vasculature and interstitial opacities are suspicious for edema. ? 3. A 2.2 centimeter nodular opacity left lower lung, possible nodule.? CT of the chest could be obtained for further evaluation if indicated.? ? Dictated by: Jevon Joshua M.D. on 04/14/2022 at 11:05 ? ? Approved by: Jevon Joshua M.D. on 04/14/2022 at 11:07?? ECG Data Attestation: I personally reviewed and interpreted this ECG as follows: Prior ECG tracings: available for review Interpretation: AFib MDM Narrative Medical decision making narrative: This is an 82 year old female with who was seen yesterday and found to have pneumonia patient returns with fevers feeling worse meet septic criteria, had occasional dips in her oxygen, started on IV antibiotics, sepsis criteria was met based on fever, tachycardia. Patient was not given a 30 cc/kilos bolus she had a L of fluids yesterday she does not look intravascularly depleted she is not hypotensive and is high risk for fluid overload so was given 1 L bolus. Antibiotics were based on likely community-acquired patient does not high risk for healthcare acquired pneumonia at this time. Discussed with hospitalist they will obtain CT of the chest as well discussed findings on chest x-ray as well as CT that cause the upper portion of her pneumonia yesterday. Discharge Plan Departure Patient Disposition: Admitted As Inpatient Clinical Impression: Pneumonia, Sepsis Admit Date/Time: 04/14/22 12:23 Admit Provider: Nathaniel Savage
[2022-04-14] MEDS: SODIUM CHLORIDE 0.9% 1,000 ML 1000 ML IV (10:18)
[2022-04-14] MEDS: ACETAMINOPHEN 325 MG TABLET 975 MG PO (10:18)
[2022-04-14 10:26] LABS: Add Manual Diff / Slide Review NO; Basophils Absolute Auto 0 /uL (0-100); Basophils Percent Auto 0.3 % (0-2); Eosinophils Absolute Auto 0 /uL (0-450); Hematocrit 28.8 % (36-46); Hemoglobin 9.5 g/dL (12.0-16.0); Lymphocytes Absolute Auto 300 /uL (1100-4500); Lymphocytes Percent Auto 3.2 % (25-40); Mean Corpuscular Hemoglobin 28.6 PG (26-34); Mean Corpuscular Volume 86.6 fL (80-100); Monocytes Absolute Auto 900 /uL (0-900); Neutrophils Absolute Auto 9100 /uL (1500-7000); Neutrophils Percent Auto 87.5 % (50-75); Platelet Count 224 X10^3/uL (150-400); Red Blood Cell Count 3.33 X10^6/uL (4.0-5.2); Red Cell Distribution Width 18.8 % (11.6-14.8); White Blood Cell Count 10.4 X10^3/uL (4.5-11.0)
[2022-04-14 10:36] LABS: INR 2.8 (0.9-1.3)
[2022-04-14 10:42] LABS: Alanine Aminotransferase 20 IU/L (<35); Albumin 4.1 g/dL (3.5-5.0); Alkaline Phosphatase 82 U/L (38-126); Aspartate Aminotransferase 27 IU/L (14-36); BUN Creatinine Ratio 18.6 (6-22); Bilirubin Total 0.9 mg/dL (0.2-1.3); Blood Urea Nitrogen 53 mg/dL (7-17); Calcium 9.1 mg/dL (8.4-10.2); Carbon Dioxide 24 mmol/L (22-32); Chloride 104 mmol/L (98-107); Creatine Kinase 53 U/L (30-135); Estimated Glomerular Filt Rate 16 mL/min (>60); Glucose 116 mg/dL (80-110); HEMOLYSIS < 15 (0-50); Lipase 131 U/L (23-300); Potassium 4.6 mmol/L (3.4-5.1); Sodium 139 mmol/L (137-145); Total Protein 8.1 g/dL (6.3-8.2)
[2022-04-14 10:43] LABS: Lactate (Lactic Acid) 1.3 mmol/L (0.7-2.1)
[2022-04-14 10:48] LABS: COVID19 -Nasal RAPID Negative (Negative)
[2022-04-14 10:59] LABS: Procalcitonin 0.27 ng/mL (<0.5)
[2022-04-14] MEDS: cefTRIAXone 2,000 MG in SODIUM CHLORIDE 0.9% 100 ML 200 MG IV (10:59)
[2022-04-14] MEDS: AZITHROMYCIN 500 MG in DEXTROSE 5% IN WATER 250 ML 250 MG IV (11:54)
--- NOTE | 2022-04-14 13:09 | DI.CT.S_ITS ---
PROCEDURE: CT CHEST WO CON INDICATIONS: nodule, sob, pna? TECHNIQUE: Noncontrast 5 mm thick sections acquired from the pulmonary apices to the posterior costophrenic angles. 1 mm lung window, 5 mm thick coronal and sagittal and 7 mm axial MIP reformats were then acquired. For radiation dose reduction, the following was used: automated exposure control, adjustment of mA and/or kV according to patient size. COMPARISON: [facility], CR, CHEST 1 VIEW, 11/12/2015, 13:06. [facility], CR, XR CHEST 1V, 04/13/2022, 16:24. [facility], CR, XR CHEST 1V, 04/14/2022, 10:01. FINDINGS: Image quality: Excellent. Lungs and pleura: Patchy alveolar consolidation, surrounding ground-glass opacity and interstitial thickening present laterally in the right upper lobe extending towards the hilar region, and a few nodular opacities more caudal in the right mid lung. For example, there is a subpleural solid 6 mm nodule in the anterior right upper lobe appearing separate from the dominant mass, 3/126. In the lateral subpleural right middle lobe, there is another rounded 6 mm solid nodule, 3/184. Lobulated thickening of the right major fissure is present. There is a chronic partially calcified juxta fissural nodule in the lingula measuring 2.0 cm. Findings are superimposed on diffuse coarse reticulation seen throughout both lungs. There are several smooth pleural based nodules as well as minor irregular pleural thickening, predominantly in the lower lobes posteriorly. Very small right pleural effusion. Mediastinum: The heart is diffusely enlarged with heavy coronary artery and mitral annular calcification. Moderate aortic valvular calcification. No pericardial effusion. The ascending aorta is mildly aneurysmal measuring 4.4 cm in AP diameter. Pulmonary arteries are mildly dilated. There is prominent mediastinal adenopathy in the right paratracheal region and AP window. Probable right hilar adenopathy though not well evaluated without IV contrast. The esophagus is normal caliber. No hiatal hernia. Bones and chest wall: No lower neck or axillary adenopathy. The thyroid gland is normal. Chest wall is within normal limits. No suspicious bone lesions. There is vertebroplasty cement in T9. Abdomen: The upper abdomen demonstrates heavy abdominal aortic calcification and splenic flexure diverticulosis. The visible portions of the other organs are within normal limits. IMPRESSION: 1. Patchy parenchymal opacities predominantly involving the right upper lobe and very small right pleural effusion are suspicious for an infectious or inflammatory process. 2. Other separate subpleural nodules are indeterminate, however a juxta fissural nodule on the left is been stable for multiple years. 3. Mediastinal adenopathy and fissural adenopathy on the right is probably reactive. 4. Cardiomegaly with extensive coronary artery, valvular, and systemic calcification. 5. Mild ascending aortic aneurysm. Dictated by: Awa Pierce M.D. on 04/14/2022 at 14:31 Approved by: Awa Pierce M.D. on 04/14/2022 at 14:42
[2022-04-14 14:04] LABS: NT-proBNP (BNP-Adult 18+) 21800 pg/mL (<450)
--- NOTE | 2022-04-14 16:04 | PM.HP.1 ---
History of Present Illness History of Present Illness Chief complaint: fever and shaking Narrative: Ms. Wheat is a 82W with PMH afib, breast cancer, bladder cancer s/p cystectomy with urostomy who presents with cough and fevers. Yesterday she presented to the ED with complaint of dropping objects and also a fall. Otherwise she was not having other significant symptoms. Workup showed lung infiltrate and she was ordered for oral antibiotics and went home. Today she returned with fevers, chills, rigors, weakness and a cough. She has a urostomy but noted no abdominal pain or changes to the color of the liquid. She has not had vomiting or diarrhea. In the ED workup was done, vitals notable for temp 103.2, hr 106, rr 22, pulse ox 88% on room air. Labs notable for WBC 10.4, hgb 9.5, plts 224. BUN 53, creat 2.85. Lactate 1.3. COVID negative. Chest xray showed right upper lung opacity. She was ordered for IV antibiotics and admitted for further treatment. Patient History Medical History Atrial fibrillation Bladder cancer Surgical History H/O total cystectomy (03/2014) Status post total abdominal hysterectomy and bilateral salpingo-oophorectomy (ANGELA-BSO) (03/2014) Family & Social History Social History: household members spouse Prior Living Arrangements House Safety & Behavioral: Feels Safe in Current Yes Environment Been Physically Hurt or No Threatened By a Person Tobacco & Substance use: Smoking Status Former smoker alcohol intake current alcohol intake frequency holiday/special occasion Substance Use Type does not use Meds Home Medications and Allergies Home Medications Medication Instructions Recorded Confirmed Type atorvastatin 40 mg tablet 40 mg PO QPM 12/01/17 04/14/22 History multivitamin 1 cap PO DAILY 12/01/17 04/14/22 History levothyroxine 50 mcg tablet 1 tab PO DAILY 01/27/18 04/14/22 History gabapentin 300 mg capsule 900 mg PO BEDTIME 01/11/19 04/14/22 History metoprolol tartrate 25 mg tablet 50 mg PO TID 01/11/19 04/14/22 History warfarin 3 mg tablet 3 mg PO BEDTIME 01/30/20 04/14/22 History cyanocobalamin (vitamin B-12) 1,000 mcg PO DAILY 04/09/22 04/14/22 History 1,000 mcg tablet diltiazem HCl 120 mg tablet 120 mg PO BEDTIME 04/09/22 04/14/22 History hydralazine 25 mg tablet 25 mg PO TID 04/09/22 04/14/22 History calcium 600 mg capsule 600 mg PO DAILY 04/14/22 04/14/22 History cholecalciferol (vitamin D3) 25 25 mcg PO DAILY 04/14/22 04/14/22 History mcg (1,000 unit) tablet (Vitamin D3) magnesium 250 mg tablet 250 mg PO BEDTIME 04/14/22 04/14/22 History Allergies Allergy/AdvReac Type Severity Reaction Status Date / Time No Known Allergies Allergy Verified 04/14/22 13:35 Review of Systems Review of Systems Narrative: 14 systems reviewed and negative aside from what is noted in HPI Exam Vital Signs (past 8 hours): - 04/14/22 09:59 04/14/22 10:18 04/14/22 11:51 Temperature 103.2 F H 103.2 F H 101 F H Pulse Rate 106 H Respiratory Rate 22 Blood Pressure 182/103 H Pulse Oximetry 95 Oxygen Delivery Method Room Air Oxygen Flow Rate 04/14/22 11:30 04/14/22 11:58 04/14/22 11:20 Temperature Pulse Rate 98 H Respiratory Rate 22 Blood Pressure 141/68 H Pulse Oximetry 89 L 92 88 L Oxygen Delivery Method Room Air Room Air Room Air Oxygen Flow Rate 04/14/22 10:13 04/14/22 10:15 04/14/22 10:15 Temperature Pulse Rate 103 H 97 H Respiratory Rate Blood Pressure 181/88 H Pulse Oximetry 94 93 Oxygen Delivery Method Oxygen Flow Rate 04/14/22 11:00 04/14/22 10:30 04/14/22 13:20 Temperature 96.9 F L Pulse Rate 100 H 99 H 81 Respiratory Rate 22 22 14 Blood Pressure 149/71 H 169/78 H 114/49 L Pulse Oximetry 98 95 94 Oxygen Delivery Method Room Air Room Air Oxygen Flow Rate 0 Oxygen Delivery Method Room Air Oxygen Flow Rate 0 Narrative Exam Narrative: GEN: mild respiratory distress HEENT: moist mucous membranes, PERRL NECK: trachea midline, no JVD PULM: coarse breath sounds bilaterally CV: irregular, tachycardic ABD: soft, nontender, ostomy draining yellow liquid EXT: warm and well perfused with no edema NEURO: awake, alert, oriented, no focal deficits Objective Labs Result Diagrams: 04/14/22 10:00 04/14/22 10:00 Labs: Laboratory Results - last 24 hr 04/14/22 04/14/22 04/14/22 10:00 10:00 10:00 WBC 10.4 RBC 3.33 L Hgb 9.5 L Hct 28.8 L MCV 86.6 MCH 28.6 MCHC 33.0 RDW 18.8 H Plt Count 224 Neut % (Auto) 87.5 H Lymph % (Auto) 3.2 L [place] % (Auto) 9.0 Eos % (Auto) 0.0 L Baso % (Auto) 0.3 Neut # (Auto) 9100 H Lymph # (Auto) 300 L [place] # (Auto) 900 Eos # (Auto) 0 Baso # (Auto) 0 PT INR Sodium 139 Potassium 4.6 Chloride 104 Carbon Dioxide 24 BUN 53 H Creatinine 2.85 H Estimated GFR 16 L BUN/Creatinine Ratio 18.6 Glucose 116 H Lactate 1.3 Calcium 9.1 Total Bilirubin 0.9 AST 27 ALT 20 Alkaline Phosphatase 82 Total Creatine Kinase CK-MB (CK-2) CK-MB (CK-2) Rel Index Troponin I NT-Pro-B Natriuret Pep Total Protein 8.1 Albumin 4.1 Globulin 4.0 Albumin/Globulin Ratio 1.0 Lipase 131 Procalcitonin 0.27 SARS-CoV-2 (PCR) 04/14/22 04/14/22 04/14/22 10:00 10:00 10:20 WBC RBC Hgb Hct MCV MCH MCHC RDW Plt Count Neut % (Auto) Lymph % (Auto) [place] % (Auto) Eos % (Auto) Baso % (Auto) Neut # (Auto) Lymph # (Auto) [place] # (Auto) Eos # (Auto) Baso # (Auto) PT 33.0 H INR 2.8 H Sodium Potassium Chloride Carbon Dioxide BUN Creatinine Estimated GFR BUN/Creatinine Ratio Glucose Lactate Calcium Total Bilirubin AST ALT Alkaline Phosphatase Total Creatine Kinase 53 CK-MB (CK-2) TNP CK-MB (CK-2) Rel Index TNP Troponin I 0.030 NT-Pro-B Natriuret Pep Total Protein Albumin Globulin Albumin/Globulin Ratio Lipase Procalcitonin SARS-CoV-2 (PCR) Negative 04/14/22 10:21 WBC RBC Hgb Hct MCV MCH MCHC RDW Plt Count Neut % (Auto) Lymph % (Auto) [place] % (Auto) Eos % (Auto) Baso % (Auto) Neut # (Auto) Lymph # (Auto) [place] # (Auto) Eos # (Auto) Baso # (Auto) PT INR Sodium Potassium Chloride Carbon Dioxide BUN Creatinine Estimated GFR BUN/Creatinine Ratio Glucose Lactate Calcium Total Bilirubin AST ALT Alkaline Phosphatase Total Creatine Kinase CK-MB (CK-2) CK-MB (CK-2) Rel Index Troponin I NT-Pro-B Natriuret Pep 99423 H Total Protein Albumin Globulin Albumin/Globulin Ratio Lipase Procalcitonin SARS-CoV-2 (PCR) Assessment & Plan Assessment & Plan narrative: 1. Acute hypoxemic respiratory failure from pneumonia -patient with fever, leukocytosis, SIRS positive with imaging consistent with pneumonia -CURB 65 score of 3, high risk for morbidity -trialed outpatient antibiotics and worsened, indicated for IV antibiotics -continue IV ceftriaxone/azithromycin -supplementary O2 for sats <90%, was 88% in ED -sputum culture ordered -check urine culture -CT chest ordered 2. CKD stage 4 with anemia -on procrit as outpatient -creatinine stable on admission -check daily 3. Hypothyroid -continue synthroid 4. Atrial fibrillation, chronic -continue diltiazem, metoprolol, coumadin -check INR daily CODE: Full Proxy: Bryan Wheat, I have utilized all available resources to reconcile the patient's home medications Time Spent With Patient Critical Care time: I spent a total of [] minutes of critical care time on this patient's care today; this time is exclusive of procedural time. Quality VTE Deep Vein Thrombosis/Pulmonary Embolism Present on Admission: No
[2022-04-14 17:05] LABS: Appearance Urine UA CLEAR; Bilirubin Urine UA NEGATIVE (NEGATIVE); Color Urine UA YELLOW; Glucose Urine UA NEGATIVE (Negative); Ketones Urine UA NEGATIVE (NEGATIVE); Leukocyte Esterase Urine UA 1+ (NEGATIVE); Nitrite Urine UA POSITIVE (Negative); Occult Blood Urine UA TRACE-LYSED (Negative); Protein Urine UA 2+ (Negative); Specific Gravity Urine UA <=1.005 (1.000-1.035); Urobilinogen Urine UA 0.2 E.U./dL (0.2)
[2022-04-14 17:25] LABS: Amorphous Sediment Urine 1+; Bacteria Urine Moderate (10-30); Culture Indicated Urine Specimen Cultured; RBC Urine 1-5/HPF (0-5/HPF); Squamous Epithelial Cell Urine 1-5 /HPF (0-5/HPF); WBC Urine 5-10/HPF (0-5/HPF)
[2022-04-14] MEDS: ATORVASTATIN 20 MG TABLET 40 MG PO (18:16)
[2022-04-14] MEDS: dilTIAZem CD 120 MG CAP PO (20:13)
[2022-04-14] MEDS: GABAPENTIN 300 MG CAPSULE 900 MG PO (20:13)
[2022-04-14] MEDS: METOPROLOL IR 25 MG TABLET 50 MG PO (20:13)
[2022-04-14] MEDS: HYDRALAZINE 25 MG TABLET PO (21:10)
[2022-04-15] VITALS (10 sets, daily range): BP systolic 146–157; BP diastolic 74–83; PULSE 72–100; RESP 18–20; TEMP 36.7–37.1; O2SAT 95–97
[2022-04-15] MEDS: LEVOTHYROXINE 50 MCG TABLET PO (05:37)
[2022-04-15 06:25] LABS: Add Manual Diff / Slide Review NO; Basophils Absolute Auto 0 /uL (0-100); Basophils Percent Auto 0.1 % (0-2); Eosinophils Absolute Auto 0 /uL (0-450); Hematocrit 23.6 % (36-46); Hemoglobin 7.9 g/dL (12.0-16.0); INR 2.9 (0.9-1.3); Lymphocytes Absolute Auto 400 /uL (1100-4500); Lymphocytes Percent Auto 3.7 % (25-40); Mean Corpuscular HGB Conc 33.7 % (30-36); Mean Corpuscular Hemoglobin 28.8 PG (26-34); Mean Corpuscular Volume 85.5 fL (80-100); Monocytes Absolute Auto 800 /uL (0-900); Monocytes Percent Auto 8.1 % (3-14); Neutrophils Absolute Auto 8500 /uL (1500-7000); Neutrophils Percent Auto 88.1 % (50-75); Platelet Count 170 X10^3/uL (150-400); Prothrombin Time 33.7 SECONDS (10.1-12.7); Red Blood Cell Count 2.76 X10^6/uL (4.0-5.2); Red Cell Distribution Width 18.5 % (11.6-14.8); White Blood Cell Count 9.7 X10^3/uL (4.5-11.0)
[2022-04-15 06:33] LABS: BUN Creatinine Ratio 20.5 (6-22); Blood Urea Nitrogen 56 mg/dL (7-17); Carbon Dioxide 21 mmol/L (22-32); Chloride 106 mmol/L (98-107); Estimated Glomerular Filt Rate 17 mL/min (>60); Glucose 115 mg/dL (80-110); HEMOLYSIS < 15 (0-50); Potassium 4.3 mmol/L (3.4-5.1); Sodium 136 mmol/L (137-145)
[2022-04-15] MEDS: ACETAMINOPHEN 325 MG TABLET 650 MG PO ×2 (09:01→15:01)
[2022-04-15] MEDS: METOPROLOL IR 25 MG TABLET 50 MG PO ×3 (09:02→22:32)
[2022-04-15] MEDS: HYDRALAZINE 25 MG TABLET PO ×3 (09:02→22:33)
--- NOTE | 2022-04-15 09:30 | CM.DANOTE ---
DCP Assessment: Payor confirmed: Medicare & [employer] PCP confirmed: Brionna Jiménez MD Pt is a 82 y.o. F who presented to the ER with complaints of cough and fevers with shaking chills. Pt does get procrit injections @ the [facility] for her anemia related to stage [address] showed pt has pneumonia and was started on IV abx. Pt admitted to the floor for further management and evaluation of diagnosis. DCP met with pt this morning to discuss discharge needs. Pt laying in bed with spouse at bedside. DCP introduced herself and role. Pt spouse, Rohith, states that they currently live on [facility] and live there for six months and then live in [place] for six months. Rohith also states that they are supposed to go to [place] tomorrow to visit their son. They state that their [facility] house is a single story. Pt states she is independent at baseline, denies any DME use and states that she still can drive but relies on her . Rohith states that pt is to have a procrit injection tomorrow @ the clinic. White board updated and instructed to call with any questions. Pt and pt thankful for discussion. DCP to update them with any new information that may arise. P: Pt continuing workup and once medically stable for discharge, pt to discharge home via spouse POV. Kiara Magallon RN/FARIHA Discharge Planning/Care Management CM Discharge Assessment Start: 04/15/22 09:29 Freq: Status: Active Protocol: Document 04/15/22 09:29 MARLY (Rec: 04/15/22 09:30 [id number]) Discharge Planning Assessment Assigned Vegetable Tester Kiara Magallon RN/FARIHA Advance Directives? Yes Advance Directives on File No: states full code History Provided By Patient,Significant Other Prior Living Arrangements House Household Members spouse Type of transporation used prior to Drives own vehicle admit Comment Spouse does most of the driving but pt can drive Independent with ADL's Yes Is patient alert and oriented? Yes Discharge Plan Home Referrals Initiated None needed Additional Comment At this time. Whiteboard Updated in Patient Room with Yes name and ext. # of Vegetable Tester Comment Instructed to call Review Status In Process Please Provide Date Initial DC 04/15/22 Assessment Was Performed Next Review Type Continued Stay Review
[2022-04-15] MEDS: cefTRIAXone 1,000 MG in SODIUM CHLORIDE 0.9% 100 ML 200 MG IV (13:16)
[2022-04-15] MEDS: AZITHROMYCIN 500 MG in DEXTROSE 5% IN WATER 250 ML 250 MG IV (14:43)
--- NOTE | 2022-04-15 18:53 | PM.PN.1 ---
Subjective Subjective Interval history: Ms. Wheat is a 82W with PMH afib, breast cancer, bladder cancer s/p cystectomy with urostomy who presented with cough and fevers. She presented to the ED on the day prior with complaint of dropping objects and also a fall. Otherwise she was not having other significant symptoms. Workup in the ER showed lung infiltrate and she was ordered for oral antibiotics and went home on the day before this admission. When she returned to the ER she had fevers, chills, rigors, weakness and a cough. She has a urostomy but noted no abdominal pain or changes to the color of the liquid. She had not had vomiting or diarrhea. Exam Vital Signs (past 8 hours): - 04/15/22 13:46 Pulse Oximetry 96 Oxygen Delivery Method Room Air Oxygen Delivery Method Room Air Oxygen Flow Rate 0 Narrative Exam Narrative: GEN: in no acute distress HEENT: moist mucous membranes, PERRL NECK: trachea midline, no JVD PULM: coarse breath sounds bilaterally CV: irregular, tachycardic ABD: soft, nontender, ostomy draining yellow liquid EXT: warm and well perfused with no edema NEURO: awake, alert, oriented, no focal deficits Objective Labs Result Diagrams: 04/15/22 05:30 04/15/22 05:30 Labs: Laboratory Results - last 24 hr 04/15/22 04/15/22 04/15/22 05:30 05:30 05:30 WBC 9.7 RBC 2.76 L Hgb 7.9 L Hct 23.6 L MCV 85.5 MCH 28.8 MCHC 33.7 RDW 18.5 H Plt Count 170 Neut % (Auto) 88.1 H Lymph % (Auto) 3.7 L [place] % (Auto) 8.1 Eos % (Auto) 0.0 L Baso % (Auto) 0.1 Neut # (Auto) 8500 H Lymph # (Auto) 400 L [place] # (Auto) 800 Eos # (Auto) 0 Baso # (Auto) 0 PT 33.7 H INR 2.9 H Sodium 136 L Potassium 4.3 Chloride 106 Carbon Dioxide 21 L BUN 56 H Creatinine 2.73 H Estimated GFR 17 L BUN/Creatinine Ratio 20.5 Glucose 115 H Calcium 8.0 L PFSH Medical History Atrial fibrillation Bladder cancer Surgical History H/O total cystectomy (03/2014) Status post total abdominal hysterectomy and bilateral salpingo-oophorectomy (ANGELA-BSO) (03/2014) Social History household members: spouse Smoking Status: Former smoker alcohol intake: current Assessment & Plan Assessment & Plan narrative: 1. Acute hypoxemic respiratory failure from pneumonia -patient with fever, leukocytosis, SIRS positive with imaging consistent with pneumonia -CURB 65 score of 3, high risk for morbidity on presentation -trialed outpatient antibiotics and worsened, indicated for IV antibiotics -continue IV ceftriaxone/azithromycin -supplementary O2 for sats <90%, was 88% in ED.. Currently O2 saturation 96% on room air -sputum culture ordered -check urine culture.. Positive for Gram-positive bacilli -CT chest ordered... Opacities right upper lobe and small right pleural effusion 2. CKD stage 4 with anemia -on procrit as outpatient.. This on hold until outpatient again. -creatinine stable on admission -check daily 3. Hypothyroid -continue synthroid 4. Atrial fibrillation, chronic -continue diltiazem, metoprolol, coumadin -check INR daily.. INR stable on current dose of Coumadin 3 mg daily 5. Pneumonia confirmed on CT of the chest with right upper lobe opacities. Treating with azithromycin and ceftriaxone. 6. Small right pleural effusion. 7. Elevated BNP of 21,800 consistent with congestive heart failure exacerbation. Treat with diuresis. Initially furosemide 40 mg IV b.i.d. follow BNP and potassium. 8. Decreasing hemoglobin. Continue to follow. 9. Hyponatremia. Follow. 10. Urinary tract infection with positive bacilli. Currently on ceftriaxone. CODE: Full Proxy: Bryan Wheat, Time Spent With Patient Critical Care time: I spent a total of [] minutes of critical care time on this patient's care today; this time is exclusive of procedural time. Quality VTE Deep Vein Thrombosis/Pulmonary Embolism Present on Admission: No
[2022-04-15] MEDS: WARFARIN 1 MG TABLET 3 MG PO (19:07)
[2022-04-15] MEDS: ATORVASTATIN 20 MG TABLET 40 MG PO (19:07)
[2022-04-15] MEDS: FUROSEMIDE 40 MG/4 ML VIAL IV (22:32)
[2022-04-15] MEDS: GABAPENTIN 300 MG CAPSULE 900 MG PO (22:32)
[2022-04-15] MEDS: dilTIAZem CD 120 MG CAP PO (22:33)
[2022-04-16] VITALS (9 sets, daily range): BP systolic 112–163; BP diastolic 60–87; PULSE 73–104; RESP 14–18; TEMP 36.2–36.9; O2SAT 95–96
[2022-04-16] MEDS: LEVOTHYROXINE 50 MCG TABLET PO (05:20)
[2022-04-16 05:59] LABS: Add Manual Diff / Slide Review NO; Basophils Absolute Auto 0 /uL (0-100); Basophils Percent Auto 0.2 % (0-2); Eosinophils Absolute Auto 0 /uL (0-450); Hemoglobin 8.4 g/dL (12.0-16.0); Lymphocytes Absolute Auto 500 /uL (1100-4500); Lymphocytes Percent Auto 6.2 % (25-40); Mean Corpuscular HGB Conc 33.5 % (30-36); Mean Corpuscular Hemoglobin 28.5 PG (26-34); Mean Corpuscular Volume 85.1 fL (80-100); Monocytes Absolute Auto 800 /uL (0-900); Neutrophils Absolute Auto 6500 /uL (1500-7000); Neutrophils Percent Auto 83.6 % (50-75); Platelet Count 186 X10^3/uL (150-400); Red Blood Cell Count 2.94 X10^6/uL (4.0-5.2); Red Cell Distribution Width 18.3 % (11.6-14.8); White Blood Cell Count 7.8 X10^3/uL (4.5-11.0)
[2022-04-16 06:18] LABS: Alanine Aminotransferase 62 IU/L (<35); Albumin 3.2 g/dL (3.5-5.0); Albumin Globulin Ratio 0.9 (1.0-2.8); Alkaline Phosphatase 64 U/L (38-126); Aspartate Aminotransferase 95 IU/L (14-36); BUN Creatinine Ratio 20.5 (6-22); Bilirubin Total 0.6 mg/dL (0.2-1.3); Blood Urea Nitrogen 63 mg/dL (7-17); Calcium 8.2 mg/dL (8.4-10.2); Carbon Dioxide 20 mmol/L (22-32); Chloride 103 mmol/L (98-107); Estimated Glomerular Filt Rate 15 mL/min (>60); Globulin 3.6 g/dL (1.7-4.1); Glucose 104 mg/dL (80-110); HEMOLYSIS < 15 (0-50); Sodium 136 mmol/L (137-145); Total Protein 6.8 g/dL (6.3-8.2)
[2022-04-16 06:23] LABS: NT-proBNP (BNP-Adult 18+) 31200 pg/mL (<450)
[2022-04-16] MEDS: METOPROLOL IR 25 MG TABLET 50 MG PO ×3 (09:22→20:05)
[2022-04-16] MEDS: ACETAMINOPHEN 325 MG TABLET 650 MG PO (09:23)
[2022-04-16] MEDS: FUROSEMIDE 40 MG/4 ML VIAL 20 MG IV (09:23)
[2022-04-16] MEDS: lisinopriL 5 MG TABLET PO (09:23)
[2022-04-16] MEDS: HYDRALAZINE 25 MG TABLET PO ×3 (09:26→20:05)
--- NOTE | 2022-04-16 11:51 | P.PN_ITS ---
Subjective Subjective Interval history: Ms. Wheat is a 82W with PMH afib, breast cancer, bladder cancer s/p cystectomy with urostomy who presented with cough and fevers. She presented to the ED on the day prior with complaint of dropping objects and also a fall. Otherwise she was not having other significant symptoms. Workup in the ER showed lung infiltrate and she was ordered for oral antibiotics and went home on the day before this admission. When she returned to the ER she had fevers, chills, rigors, weakness and a cough. She has a urostomy but noted no abdominal pain or changes to the color of the liquid. She had not had vomiting or diarrhea. Did not sleep well last night. Is very fatigued today. Exam Vital Signs (past 8 hours): - 04/16/22 05:59 04/16/22 07:00 04/16/22 07:50 Temperature 98.5 F Pulse Rate 104 H Respiratory Rate 14 Blood Pressure 163/87 H Pulse Oximetry 96 96 Oxygen Delivery Method Room Air Room Air Oxygen Flow Rate 0 04/16/22 07:50 Temperature Pulse Rate Respiratory Rate Blood Pressure Pulse Oximetry 96 Oxygen Delivery Method Room Air Oxygen Flow Rate Oxygen Delivery Method Room Air Oxygen Flow Rate 0 Narrative Exam Narrative: GEN: mild respiratory distress HEENT: moist mucous membranes, PERRL NECK: trachea midline, no JVD PULM: coarse breath sounds bilaterally CV: irregular, tachycardic ABD: soft, nontender, ostomy draining yellow liquid EXT: warm and well perfused with no edema NEURO: awake, alert, oriented, no focal deficits Objective Labs Result Diagrams: 04/16/22 04:59 04/16/22 04:59 Labs: Laboratory Results - last 24 hr 04/16/22 04/16/22 04:59 04:59 WBC 7.8 RBC 2.94 L Hgb 8.4 L Hct 25.0 L MCV 85.1 MCH 28.5 MCHC 33.5 RDW 18.3 H Plt Count 186 Neut % (Auto) 83.6 H Lymph % (Auto) 6.2 L [place] % (Auto) 10.0 Eos % (Auto) 0.0 L Baso % (Auto) 0.2 Neut # (Auto) 6500 Lymph # (Auto) 500 L [place] # (Auto) 800 Eos # (Auto) 0 Baso # (Auto) 0 Sodium 136 L Potassium 4.0 Chloride 103 Carbon Dioxide 20 L BUN 63 H Creatinine 3.07 H Estimated GFR 15 L BUN/Creatinine Ratio 20.5 Glucose 104 Calcium 8.2 L Total Bilirubin 0.6 AST 95 H ALT 62 H Alkaline Phosphatase 64 NT-Pro-B Natriuret Pep 44231 H Total Protein 6.8 Albumin 3.2 L Globulin 3.6 Albumin/Globulin Ratio 0.9 L PFSH Medical History Atrial fibrillation Bladder cancer Surgical History H/O total cystectomy (03/2014) Status post total abdominal hysterectomy and bilateral salpingo-oophorectomy (ANGELA-BSO) (03/2014) Social History household members: spouse Smoking Status: Former smoker alcohol intake: current Assessment & Plan Assessment & Plan narrative: 1. Acute hypoxemic respiratory failure from pneumonia -patient with fever, leukocytosis, SIRS positive with imaging consistent with pneumonia -CURB 65 score of 3, high risk for morbidity on presentation -trialed outpatient antibiotics and worsened, indicated for IV antibiotics -continue IV ceftriaxone/azithromycin -supplementary O2 for sats <90%, was 88% in ED..? Currently O2 saturation 96% on room air -sputum culture ordered, not available this and yet. -check urine culture..? Positive for Gram-positive bacilli -CT chest ordered...? Opacities right upper lobe consistent with pneumonia and small right pleural effusion 2. CKD stage 4 with anemia -on procrit as outpatient..? This on hold until outpatient again. -creatinine stable on admission -check daily 3. Hypothyroid -continue synthroid 4. Atrial fibrillation, chronic -continue diltiazem, metoprolol, coumadin -check INR tomorrow..? INR stable on current dose of Coumadin 3 mg daily 5. Pneumonia confirmed on CT of the chest with right upper lobe opacities.? Treating with azithromycin and ceftriaxone. 6. Small right pleural effusion.? 7. Elevated BNP of 21,800 initially and now increased to 31,200 consistent with congestive heart failure exacerbation.? Treat with diuresis.? Initially furosemide 40 mg IV b.i.d and now furosemide 60 mg IV Q 8 H. follow BNP and potassium. 8. Decreasing hemoglobin.? Continue to follow. 9. Hyponatremia.? Follow. ? 10. Urinary tract infection with gram negative bacilli.? Currently on cef triaxone. CODE: Full Proxy: Bryan Wheat, Time Spent With Patient Critical Care time: I spent a total of [] minutes of critical care time on this patient's care today; this time is exclusive of procedural time. Quality VTE Deep Vein Thrombosis/Pulmonary Embolism Present on Admission: No
--- NOTE | 2022-04-16 11:53 | DI.ECHO.S_ITS ---
[facility]---------+ [facility] +---------+ : : [address] : : : : [place] : : : : [id number] : : : : Phone: [phone]+ Echocardiogram Report + + :Name: AURELIA BANKS Study Date: 04/17/2022 Height: 68 in : :[facility] ReadingLocation: Weight: 140 lb : : Gender: Female BSA: 1.8 m2 : :: 1940 Age: 82 yrs BP: 120/60 mmHg: :Reason For Study: Congestive Heart Failure : :Ordering Physician: : :Nandini Herman Performed By: Haris Zaidi : :Referring: Nandini Herman : + + Interpretation Summary A. fib with variable heart rate ranging from 90 bpm to 100 bpm. Normal LV size and moderately increased left ventricular wall thickness. Normal wall motion and left ventricular systolic function. Ejection fraction is 55-60%. There is severe left atrial enlargement and mild RA enlargement. Severe mitral annular calcification. Aortic valve leaflets are mildly thickened and calcified. There is a small mobile lesion on the ventricular side of right coronary leaflet of the aortic valve which was there in hindsight 01/04/2021, but was not explicitly mentioned. There is mild-moderate associated aortic regurgitation. Ascending aorta is mildly dilated and measures 4.1 cm. Compared to prior study 01/04/2021 afib is new. AI got a little worse. Procedure: A two-dimensional transthoracic echocardiogram with color flow and Doppler was performed. The study quality was technically adequate. Comparison is made with the echocardiogram of 01/04/2021. Left Ventricle: The left ventricle is normal in size. There is moderate concentric left ventricular hypertrophy. Left ventricular systolic function is normal. The ejection fraction is estimated to be 55-60%. There are no focal wall motion abnormalities. Diastolic function could not be accurately assessed due to atrial fibrillation. Right Ventricle: The right ventricle is normal in size and function. Atria: The left atrium is severely dilated. The right atrium is mildly dilated. The interatrial septum grossly appears intact with no obvious evidence for an atrial septal defect. Mitral Valve: There is severe mitral annular calcification. There is mild mitral regurgitation. Aortic Valve: There is mild aortic valve sclerosis. There is mild to moderate aortic regurgitation. Tricuspid Valve: The tricuspid valve is normal in structure and function. There is mild tricuspid regurgitation. The right ventricular systolic pressure is estimated to be at least 29 mmHg based on an estimated right atrial pressure of 3 mm Hg. Pulmonic Valve: The pulmonic valve is normal in structure and function. There is no pulmonic valvular regurgitation. Great Vessels: The aortic root is normal size. The ascending aorta is mildly enlarged. The IVC is of normal diameter and collapses greater than 50% with a sniff. This suggests a low right atrial pressure of 3 mm Hg. Pericardium/ Pleura There is no pericardial effusion. There is no pleural effusion. MMode/2D Measurements & Calculations LVIDd: 4.4 cm LVOT diam: 2.0 cm LVIDs: 3.1 cm Ao root diam: 3.6 cm FS: 28.8 % asc Aorta Diam: 4.1 cm IVSd: 1.4 cm LVPWd: 1.4 cm LV morin. diameter/BSA (cm/m^2): 2.5 LV sys. diameter/BSA (cm/m^2): 1.8 LA dimension: 4.3 cm RA long axis: 7.0 cm LA A2 area: 38.7 cm2 RA area: 26.2 cm2 LA A4 area: 32.8 cm2 RA vol: 82.8 ml LA length (vol): 7.4 cm RA : 47.2 ml/m2 LA vol: 144.8 ml LA vol index: 82.5 ml/m2 TAPSE_phl: 1.9 cm Doppler Measurements & Calculations Ao V2 max: 138.0 cm/sec LVOT Max Virgilio: 72.5 cm/sec Ao V2 mean: 100.0 cm/sec LV V1 max P.1 mmHg Ao max P.0 mmHg LV V1 VTI: 14.5 cm Ao mean P.0 mmHg ABIDA(I,D): 1.8 cm2 Ao V2 VTI: 25.6 cm ABIDA(V,D): 1.7 cm2 sev ratio: 0.57 ABIDA indexed to BSA (cm^2/m^2): 1.0 AI P1/2t: 547.5 msec AI dec slope: 222.0 cm/sec2 TR max virgilio: 256.0 cm/sec SV(LVOT): 45.6 ml TR max P.2 mmHg AV P1/2t-pr_phl: 548.0 msec AV VR_phl: 0.53 ABIDA(VTI)/BSA_phl: 1.0 Electronically signed by: Destiny Jha M.D. on Reading Physician:04/17/2022 02:42 PM
[2022-04-16] MEDS: cefTRIAXone 1,000 MG in SODIUM CHLORIDE 0.9% 100 ML 200 MG IV (12:52)
[2022-04-16] MEDS: AZITHROMYCIN 500 MG in DEXTROSE 5% IN WATER 250 ML 250 MG IV (13:40)
--- NOTE | 2022-04-16 14:01 | CM.DPNOTE ---
Discharge Planning Note: Patient fatigued today and sleeping this afternoon. Urine culture results pending. IV antibiotics. Plan: Return home to [facility] with when medically cleared. Anna Blackburn RN/DCP
[2022-04-16] MEDS: ATORVASTATIN 20 MG TABLET 40 MG PO (19:02)
[2022-04-16] MEDS: WARFARIN 1 MG TABLET 3 MG PO (19:02)
[2022-04-16] MEDS: dilTIAZem CD 120 MG CAP PO (20:05)
[2022-04-16] MEDS: GABAPENTIN 300 MG CAPSULE 900 MG PO (20:05)
[2022-04-16] MEDS: FUROSEMIDE 100 MG/10 ML VIAL 60 MG IV (20:05)
[2022-04-17] VITALS (10 sets, daily range): BP systolic 116–146; BP diastolic 58–75; PULSE 69–88; RESP 17–21; TEMP 36.7–37.2; O2SAT 93–97
--- NOTE | 2022-04-17 03:25 | PC.NURSE ---
Pt is AxOx4, needs 1 person assistance and cooperative. VSS, pt denies pain. Pt slept well all night. No BM. Pt has good urine output. Lungs diminished in all areas and crackles on posterior area. No other changes. Continue monitor.
[2022-04-17] MEDS: LEVOTHYROXINE 50 MCG TABLET PO (05:15)
[2022-04-17 05:40] LABS: Add Manual Diff / Slide Review NO; Basophils Absolute Auto 0 /uL (0-100); Basophils Percent Auto 0.5 % (0-2); Eosinophils Absolute Auto 0 /uL (0-450); Hematocrit 26.2 % (36-46); Hemoglobin 8.8 g/dL (12.0-16.0); Lymphocytes Absolute Auto 400 /uL (1100-4500); Lymphocytes Percent Auto 6.8 % (25-40); Mean Corpuscular HGB Conc 33.6 % (30-36); Mean Corpuscular Hemoglobin 28.2 PG (26-34); Monocytes Absolute Auto 600 /uL (0-900); Monocytes Percent Auto 10.6 % (3-14); Neutrophils Absolute Auto 4300 /uL (1500-7000); Neutrophils Percent Auto 82.1 % (50-75); Platelet Count 201 X10^3/uL (150-400); Red Blood Cell Count 3.12 X10^6/uL (4.0-5.2); Red Cell Distribution Width 18.2 % (11.6-14.8); White Blood Cell Count 5.3 X10^3/uL (4.5-11.0)
[2022-04-17 05:46] LABS: INR 2.9 (0.9-1.3); Prothrombin Time 33.9 SECONDS (10.1-12.7)
[2022-04-17 05:52] LABS: Alanine Aminotransferase 138 IU/L (<35); Albumin 3.2 g/dL (3.5-5.0); Albumin Globulin Ratio 0.9 (1.0-2.8); Alkaline Phosphatase 68 U/L (38-126); Aspartate Aminotransferase 201 IU/L (14-36); BUN Creatinine Ratio 22.6 (6-22); Bilirubin Total 0.4 mg/dL (0.2-1.3); Blood Urea Nitrogen 67 mg/dL (7-17); Calcium 8.4 mg/dL (8.4-10.2); Carbon Dioxide 23 mmol/L (22-32); Chloride 101 mmol/L (98-107); Estimated Glomerular Filt Rate 15 mL/min (>60); Globulin 3.7 g/dL (1.7-4.1); Glucose 95 mg/dL (80-110); HEMOLYSIS < 15 (0-50); Potassium 3.5 mmol/L (3.4-5.1); Sodium 137 mmol/L (137-145); Total Protein 6.9 g/dL (6.3-8.2)
[2022-04-17 06:01] LABS: NT-proBNP (BNP-Adult 18+) 20500 pg/mL (<450)
[2022-04-17] MEDS: HYDRALAZINE 25 MG TABLET PO ×3 (09:17→20:48)
[2022-04-17] MEDS: lisinopriL 5 MG TABLET PO (09:17)
[2022-04-17] MEDS: FUROSEMIDE 100 MG/10 ML VIAL 60 MG IV (09:18)
[2022-04-17] MEDS: METOPROLOL IR 25 MG TABLET 50 MG PO ×3 (09:18→20:48)
--- NOTE | 2022-04-17 11:00 | PT.IIE ---
Current Diagnoses Pneumonia, unspecified organism (04/14/22) Surgical History (Last Reviewed 04/14/22 @ 16:10 by Nathaniel Savage MD) H/O total cystectomy (03/2014) Status post total abdominal hysterectomy and bilateral salpingo-oophorectomy (ANGELA-BSO) (03/2014) Medical History (Last Reviewed 04/14/22 @ 16:10 by Nathaniel Savage MD) Atrial fibrillation Bladder cancer Physical Therapy Inpatient Evaluation/Re-Eval M1 PT/OT-IP Prior Functional Status Start: 04/17/22 12:41 Freq: NEEDED Status: Active Protocol: Document 04/17/22 11:00 AB (Rec: 04/17/22 12:52 AB [id number]) Medical Review Prior Functional Status Medical History Reviewed Yes Communication able to make needs known Mobility and Gait pt stated that she is independent with all mobilities and ambulation without AD Social History Household Members spouse Living Arrangements House Number of Floors (Floors) One Floor Number of Stairs To Enter/Railing? 3 steps B rails to enter Home Environment Standard Height Toilet,Walk in Shower Home Equipment Quad Cane M2 PT-IP Current Condition Start: 04/17/22 12:41 Freq: NEEDED Status: Active Protocol: Document 04/17/22 11:00 AB (Rec: 04/17/22 12:52 AB [email or web address]) Physical Therapy Current Condition Current Condition Evaluation Date 04/17/22 Treatment Diagnosis PNA; sepsis; difficulty in walking Onset Date 04/14/22 M3 PT-IP Subjective Start: 04/17/22 12:41 Freq: NEEDED Status: Active Protocol: Document 04/17/22 11:00 AB (Rec: 04/17/22 12:52 AB [email or web address]) Subjective Physical Therapy Visit Type Type Initial Evaluation Visit Start Time 11:00 Visit Stop Time 11:30 Total Visit Minutes 30 Number of HYDROGRAPHER Visits 0 Physical Therapy Visit Comments Patient Comments agreeable to do PT Therapy Pain Assessment Pain Present Pain Present Denied Pain M4 PT-IP Mobility and Gait Start: 04/17/22 12:41 Freq: NEEDED Status: Active Protocol: Document 04/17/22 11:00 AB (Rec: 04/17/22 12:52 AB [email or web address]) PT-Bed Mobility Assessment Supine to Sit Supine to Sit Standby Assistance PT-Transfer Assessment Sit to and From Stand Sit to and from Stand Contact Guard Assistance,1 Person Assistance,Use of Upper Extremities Equipment Transfer Assistive Device Gait Belt,Front Wheeled Walker Orthotic/Prosthetic Devices or Brace: No Transfers Transfer Destination Chair Transfer Technique ambulated Transfer Ability Level of Assist Contact Guard Assistance,1 Person Assistance,Use of Upper Extremities Comments Mobility Comments BP: 112/53. completed supine to sit SBA. able to sit on EOB SBA. complete sit to stand CGA and ambulated in room using FWW CGA ~ 125 ft. presents with slow max and guarded steps. pt agreed to sit on chair and positioned. call light and table placed within reach. pt's spouse in room with pt and informed go get a FWW for pt. spouse stated tht he will call their neighbor to borrow one. Gait Assessment Gait Gait Assistance Required: Minimum Assistance Distance (Feet) 125 Able to Maintain Weight Bearing Status Yes During Gait Assistive Devices Assistive Device Gait Belt,Front Wheeled Walker Orthotic/Prosthetic Devices or Brace: No Gait Deviations General Gait Pattern Decreased Stride Length, Decreased Feet Clearance Factors Limiting Gait Function Factors Limiting Gait Function Decreased Activity Tolerance, Decreased Strength,Difficulty Following Directions,Poor Balance PT-Balance Assessment Sitting Balance and Reactions Static Sitting Balance Ability Normal Dynamic Sitting Balance Ability Good Standing Balance and Reactions Static Standing Balance Ability Fair Dynamic Standing Balance Ability Fair Device Used FWW M5 PT-IP Objective Assessments Start: 04/17/22 12:41 Freq: NEEDED Status: Active Protocol: Document 04/17/22 11:00 AB (Rec: 04/17/22 12:52 AB [id number]) Orientation Orientation/Cognition Level of Alertness Alert Orientation Name,Place,Situation Language Function Ability No Deficits Noted Safety Awareness Decreased Safety Awareness Memory Description Short Term Impaired Gross Range of Motion Lower Extremity ROM Assessment Within Functional Limits Strength Lower Extremity Strength Assessment Within Functional Limits Coordination Assessment Gross Coordination Gross Coordination WNL Sensation Assessment Sensation Gross Sensation WNL Muscle Tone Muscle Tone WNL Yes M6 PT-IP Treatment Start: 04/17/22 12:41 Freq: NEEDED Status: Active Protocol: Document 04/17/22 11:00 AB (Rec: 04/17/22 12:52 AB [id number]) Physical Therapy Treatment Education Education Provided Safety M7 PT-IP Assessment and Plan Start: 04/17/22 12:41 Freq: NEEDED Status: Active Protocol: Document 04/17/22 11:00 AB (Rec: 04/17/22 12:52 AB [id number]) PT Summary Assessment and Plan Potential Rehabilitation Potential Good Status of Condition at Evaluation Stable Summary Impairments Pain,ROM,Strength,Balance, Coordination,Sensation,Tone, Cognition,Bed Mobility, Transfers,Gait,Activity Tolerance Assessment Summary pt requiring CGA with mobility but presents with decrease activity tolerance affecting mobility independence. pt plans to go home and spouse will be able to assist pt at home. Pt will benefit from HHPT. Goals Bed Mobility Goal Independent Transfer Goal Independent,Front Wheeled Walker Gait Goal Independent,Front Wheel Walker Gait Distance 200 Other Goals improve transfers without AD mod I and ambulation without AD ~ 150 ft mod I Days to Meet Goals 10 Frequency of Treatment Frequency Of Treatment Once a Day Treatment Plan Physical Therapy Treatment Plan Bed Mobility Training,Transfer Training,Gait Training, Therapeutic Exercise,Balance Retraining,Discharge Planning, Hot or Cold Pack,Neuromuscular Re-ed,Coordination Retraining Recommendations To Nursing Amount of Assist Needed 1 Person Assist Discharge Recommendations PT Discharge Recommendations Home with Assistance,Home Health Equipment Needed for Home Before FWW Discharge Transportation Needs at Discharge Private Vehicle,Wheelchair/ Cabulance
[2022-04-17] MEDS: cefTRIAXone 1,000 MG in SODIUM CHLORIDE 0.9% 100 ML 200 MG IV (12:21)
--- NOTE | 2022-04-17 14:59 | CM.DPNOTE ---
Discharge Planning Note: PT recommending home with HH physical therapy. Patient and spouse are accepting. They live on [facility] only HH agency that services. Provided brochure. Left message for Rodríguez at [place]. Plan: When medically cleared, home to care of with HH PT. Anna Ruiz RN/DCP
--- NOTE | 2022-04-17 15:43 | P.PN_ITS ---
Subjective Subjective Interval history: Ms. Wheat is a 82W with PMH afib, breast cancer, bladder cancer s/p cystectomy with urostomy who presented with cough and fevers. She presented to the ED on the day prior with complaint of dropping objects and also a fall. Otherwise she was not having other significant symptoms. Workup in the ER showed lung infiltrate and she was ordered for oral antibiotics and went home on the day before this admission. When she returned to the ER she had fevers, chills, rigors, weakness and a cough. She has a urostomy but noted no abdominal pain or changes to the color of the liquid. She had not had vomiting or diarrhea. And feels so much better today. Has more energy and is more active. Had a shower and feels good with this. Exam Vital Signs (past 8 hours): - 04/17/22 09:17 04/17/22 09:17 04/17/22 10:00 Pulse Rate 88 88 Blood Pressure 146/75 H 146/75 H Pulse Oximetry 97 Oxygen Delivery Method Room Air Oxygen Flow Rate 0 04/17/22 15:00 04/17/22 15:13 Pulse Rate 69 Blood Pressure 116/62 Pulse Oximetry 97 Oxygen Delivery Method Room Air Oxygen Flow Rate 0 Oxygen Delivery Method Room Air Oxygen Flow Rate 0 Narrative Exam Narrative: GEN: In no medical distress HEENT: moist mucous membranes, PERRL, wearing glasses. NECK: trachea midline, no JVD PULM: Clear, no wheezes or crackles CV: irregular, tachycardic ABD: soft, nontender, ostomy draining yellow liquid EXT: warm and well perfused with no edema NEURO: awake, alert, oriented, no focal deficits Objective Labs Result Diagrams: 04/17/22 05:10 04/17/22 05:10 Labs: Laboratory Results - last 24 hr 04/17/22 04/17/22 04/17/22 05:10 05:10 05:10 WBC 5.3 RBC 3.12 L Hgb 8.8 L Hct 26.2 L MCV 84.0 MCH 28.2 MCHC 33.6 RDW 18.2 H Plt Count 201 Neut % (Auto) 82.1 H Lymph % (Auto) 6.8 L [place] % (Auto) 10.6 Eos % (Auto) 0.0 L Baso % (Auto) 0.5 Neut # (Auto) 4300 Lymph # (Auto) 400 L [place] # (Auto) 600 Eos # (Auto) 0 Baso # (Auto) 0 PT 33.9 H INR 2.9 H Sodium 137 Potassium 3.5 Chloride 101 Carbon Dioxide 23 BUN 67 H Creatinine 2.97 H Estimated GFR 15 L BUN/Creatinine Ratio 22.6 H Glucose 95 Calcium 8.4 Total Bilirubin 0.4 AST 201 H ALT 138 H Alkaline Phosphatase 68 NT-Pro-B Natriuret Pep 73659 H Total Protein 6.9 Albumin 3.2 L Globulin 3.7 Albumin/Globulin Ratio 0.9 L PFSH Medical History Atrial fibrillation Bladder cancer Surgical History H/O total cystectomy (03/2014) Status post total abdominal hysterectomy and bilateral salpingo-oophorectomy (ANGELA-BSO) (03/2014) Social History household members: spouse Smoking Status: Former smoker alcohol intake: current Assessment & Plan Assessment & Plan narrative: 1. Acute hypoxemic respiratory failure from pneumonia -patient with fever, leukocytosis, SIRS positive with imaging consistent with pneumonia -CURB 65 score of 3, high risk for morbidity on presentation -trialed outpatient antibiotics and worsened, indicated for IV antibiotics -continue IV ceftriaxone -supplementary O2 for sats <90%, was 88% in ED..? Currently O2 saturation 96% on room air -sputum culture ordered, not available this and yet. -check urine culture..? Positive for Gram-positive bacilli -CT chest ordered...? Opacities right upper lobe consistent with pneumonia and small right pleural effusion Currently no breathing issues. 2. CKD stage 4 with anemia -on procrit as outpatient..? This on hold until outpatient again. -creatinine stable -GFR improved to 15 today 3. Hypothyroid -continue synthroid 4. Atrial fibrillation, chronic -continue diltiazem, metoprolol, coumadin - INR 2.9.? INR stable on current dose of Coumadin 3 mg daily 5. Pneumonia confirmed on CT of the chest with right upper lobe opacities.? Treated with azithromycin and ceftriaxone. Ceftriaxone continuing. 6. Small right pleural effusion.? 7. Elevated BNP of 21,800 initially and now increased to 31,200 consistent with congestive heart failure exacerbation.? Treat with diuresis.? Initially furosemide 40 mg IV b.i.d and now furosemide 60 mg IV Q 8 H. follow BNP and potassium. Change furosemide today to 80 mg b.i.d. and introduced spironolactone 25 mg daily. Follow labs. 8. Decreasing hemoglobin.? Continue to follow. Patient sees Procrit as an outpatient. This can be continued as outpatient. 9. Hyponatremia.? Currently normal today. ? 10. Urinary tract infection with gram negative bacilli.? Currently on ceftriaxone. Follow clinically and labs. CODE: Full Proxy: Bryan Wheat, Time Spent With Patient Critical Care time: I spent a total of [] minutes of critical care time on this patient's care today; this time is exclusive of procedural time. Quality VTE Deep Vein Thrombosis/Pulmonary Embolism Present on Admission: No
[2022-04-17] MEDS: SPIRONOLACTONE 25 MG TABLET PO (15:57)
[2022-04-17] MEDS: WARFARIN 1 MG TABLET 3 MG PO (16:22)
[2022-04-17] MEDS: ATORVASTATIN 20 MG TABLET 40 MG PO (16:22)
[2022-04-17] MEDS: FUROSEMIDE 40 MG TABLET 80 MG PO (17:28)
[2022-04-17] MEDS: dilTIAZem CD 120 MG CAP PO (20:48)
[2022-04-17] MEDS: GABAPENTIN 300 MG CAPSULE 900 MG PO (20:48)
[2022-04-18] VITALS (11 sets, daily range): BP systolic 99–131; BP diastolic 51–78; PULSE 64–85; RESP 18–24; TEMP 36.3–37.1; O2SAT 95–100
[2022-04-18 05:56] LABS: Add Manual Diff / Slide Review NO; Basophils Absolute Auto 0 /uL (0-100); Basophils Percent Auto 0.5 % (0-2); Eosinophils Absolute Auto 0 /uL (0-450); Eosinophils Percent Auto 0.1 % (2-4); Hematocrit 26.6 % (36-46); Lymphocytes Absolute Auto 500 /uL (1100-4500); Lymphocytes Percent Auto 11.2 % (25-40); Mean Corpuscular HGB Conc 33.8 % (30-36); Mean Corpuscular Hemoglobin 28.1 PG (26-34); Monocytes Absolute Auto 500 /uL (0-900); Monocytes Percent Auto 11.5 % (3-14); Neutrophils Absolute Auto 3700 /uL (1500-7000); Neutrophils Percent Auto 76.7 % (50-75); Platelet Count 224 X10^3/uL (150-400); Red Blood Cell Count 3.21 X10^6/uL (4.0-5.2); White Blood Cell Count 4.8 X10^3/uL (4.5-11.0)
[2022-04-18 06:08] LABS: Alanine Aminotransferase 283 IU/L (<35); Albumin 3.3 g/dL (3.5-5.0); Albumin Globulin Ratio 0.9 (1.0-2.8); Alkaline Phosphatase 75 U/L (38-126); Aspartate Aminotransferase 452 IU/L (14-36); BUN Creatinine Ratio 27.5 (6-22); Bilirubin Total 0.5 mg/dL (0.2-1.3); Blood Urea Nitrogen 76 mg/dL (7-17); C-Reactive Protein Quant 7.9 mg/dL (<1.0); Calcium 8.5 mg/dL (8.4-10.2); Carbon Dioxide 24 mmol/L (22-32); Chloride 95 mmol/L (98-107); Estimated Glomerular Filt Rate 17 mL/min (>60); Globulin 3.8 g/dL (1.7-4.1); Glucose 88 mg/dL (80-110); HEMOLYSIS 39 (0-50); Potassium 3.6 mmol/L (3.4-5.1); Sodium 131 mmol/L (137-145); Total Protein 7.1 g/dL (6.3-8.2)
[2022-04-18 06:10] LABS: NT-proBNP (BNP-Adult 18+) 9710 pg/mL (<450)
[2022-04-18] MEDS: LEVOTHYROXINE 50 MCG TABLET PO (06:23)
[2022-04-18] MEDS: HYDRALAZINE 25 MG TABLET PO ×3 (08:43→21:52)
[2022-04-18] MEDS: SPIRONOLACTONE 25 MG TABLET PO (08:43)
--- NOTE | 2022-04-18 10:53 | PT.IPTN ---
Current Diagnoses Pneumonia, unspecified organism (04/14/22) Physical Therapy Treatment Note M2 PT-IP Current Condition Start: 04/17/22 12:41 Freq: NEEDED Status: Active Protocol: Document 04/17/22 11:00 AB (Rec: 04/17/22 12:52 AB [id number]) Physical Therapy Current Condition Current Condition Evaluation Date 04/17/22 Treatment Diagnosis PNA; sepsis; difficulty in walking Onset Date 04/14/22 M3 PT-IP Subjective Start: 04/17/22 12:41 Freq: NEEDED Status: Active Protocol: Document 04/18/22 10:30 KS (Rec: 04/18/22 12:14 KS [id number]) Subjective Physical Therapy Visit Type Type Treatment Note Visit Start Time 10:30 Visit Stop Time 10:53 Total Visit Minutes 23 Notes Spouse present during treatment Number of PACKING AND WRAPPING SUPERVISOR Visits 1 Physical Therapy Visit Comments Patient Comments agreeable to do PT, pt states feeling more fatigued today M4 PT-IP Mobility and Gait Start: 04/17/22 12:41 Freq: NEEDED Status: Active Protocol: Document 04/18/22 10:30 KS (Rec: 04/18/22 12:14 KS [id number]) PT-Bed Mobility Assessment Supine to Sit Supine to Sit Standby Assistance Sit to Supine Sit to Supine Contact Guard Assistance Scooting Scooting to Edge of Bed Contact Guard Assistance PT-Transfer Assessment Sit to and From Stand Sit to and from Stand Contact Guard Assistance,1 Person Assistance,Use of Upper Extremities Equipment Transfer Assistive Device Gait Belt,Front Wheeled Walker Orthotic/Prosthetic Devices or Brace: No Transfers Transfer Destination Bed Transfer Technique ambulated Transfer Ability Level of Assist Contact Guard Assistance,1 Person Assistance,Use of Upper Extremities Comments Mobility Comments Pt in bed upon arrival and reporting increased fatigue today but agreeable to mobilize. SBA for sup<>Sit, CGA for scooting EOB and CGA for sit<>stand w/ FWW. Pt denied dizziness or lightheadedness when standing. She then ambulated ~60 ft in room w/ FWW CGA and requested to return to bed due to fatigue. Good use of FW but w/ decreased stride and foot clearance due to low activity tolerance. Pt able to complete LE exercises in bed to promote blood flow and strengthening. Left in bed w/ all needs in reach. Gait Assessment Gait Gait Assistance Required: Contact Guard Assist,1 Person Assist Distance (Feet) 60 Able to Maintain Weight Bearing Status Yes During Gait Assistive Devices Assistive Device Gait Belt,Front Wheeled Walker Orthotic/Prosthetic Devices or Brace: No Gait Deviations General Gait Pattern Decreased Stride Length, Decreased Feet Clearance Factors Limiting Gait Function Factors Limiting Gait Function Decreased Activity Tolerance, Decreased Strength,Difficulty Following Directions,Poor Balance Comments Gait Comments Quick approach to fatigue. Stair Climbing Assessment Comments Stair Climbing Comments Not assessed due to fatigue PT-Balance Assessment Sitting Balance and Reactions Static Sitting Balance Ability Normal Dynamic Sitting Balance Ability Good Standing Balance and Reactions Static Standing Balance Ability Fair Dynamic Standing Balance Ability Fair Device Used FWW M5 PT-IP Objective Assessments Start: 04/17/22 12:41 Freq: NEEDED Status: Active Protocol: Document 04/17/22 11:00 AB (Rec: 04/17/22 12:52 AB [id number]) Orientation Orientation/Cognition Level of Alertness Alert Orientation Name,Place,Situation Language Function Ability No Deficits Noted Safety Awareness Decreased Safety Awareness Memory Description Short Term Impaired Gross Range of Motion Lower Extremity ROM Assessment Within Functional Limits Strength Lower Extremity Strength Assessment Within Functional Limits Coordination Assessment Gross Coordination Gross Coordination WNL Sensation Assessment Sensation Gross Sensation WNL Muscle Tone Muscle Tone WNL Yes M6 PT-IP Treatment Start: 04/17/22 12:41 Freq: NEEDED Status: Active Protocol: Document 04/18/22 10:30 KS (Rec: 04/18/22 12:14 KS [id number]) Physical Therapy Treatment Exercises Exercises Ankle Pumps,Gluteal Sets,Quad Sets,Straight Leg Raises Education Education Provided Safety M7 PT-IP Assessment and Plan Start: 04/17/22 12:41 Freq: NEEDED Status: Active Protocol: Document 04/18/22 10:30 KS (Rec: 04/18/22 12:14 KS [id number]) PT Summary Assessment and Plan Potential Rehabilitation Potential Good Summary Impairments Pain,ROM,Strength,Balance, Coordination,Sensation,Tone, Cognition,Bed Mobility, Transfers,Gait,Activity Tolerance Progress Towards Goals Slow Progress due to Activity Tolerance Assessment Summary Pt limited by low tolerance for activity, requiring mostly CGA w/ mobility. Pt feels much weaker than her baseline. Will continue to assess progress. If going home she will need HHPT, but may also benefit from SNF to improve activity tolerance, strength, and functional mobility independence. Goals Bed Mobility Goal Independent Transfer Goal Independent,Front Wheeled Walker Gait Goal Independent,Front Wheel Walker Gait Distance 200 Other Goals improve transfers without AD mod I and ambulation without AD ~ 150 ft mod I Days to Meet Goals 10 Frequency of Treatment Frequency Of Treatment Once a Day Treatment Plan Physical Therapy Treatment Plan Bed Mobility Training,Transfer Training,Gait Training, Therapeutic Exercise,Balance Retraining,Discharge Planning, Hot or Cold Pack,Neuromuscular Re-ed,Coordination Retraining Recommendations To Nursing Amount of Assist Needed 1 Person Assist Discharge Recommendations PT Discharge Recommendations Home with Assistance,Home Health,SNF Rehab,Home vs SNF Equipment Needed for Home Before FWW Discharge Transportation Needs at Discharge Private Vehicle,Wheelchair/ Cabulance
[2022-04-18] MEDS: PIPERACILLIN/TAZO 3.375 GM in SODIUM CHLORIDE 0.9% 100 ML IV ×2 (10:59→22:47)
--- NOTE | 2022-04-18 11:08 | CM.DPC ---
Addendum entered by SIMON Sarmiento 04/18/22 11:31: ADD: Return call from [facility], pt has no scheduled Procrit appointments as they were cancelled and follow up to happen in [place] as pt and spouse live [place] [facility] [place] half time [place]. Therefore they can accept pt as long as writes that Procrit can be held during SNF. BF Original Note: DCP IV-Abx planning Per MD and Pharmacist, pt's cultures returned and quite resistant and pt will need IV-Abx Zosyn likely at d/c Q8. Pt already established at [facility] for infusion of Procrit but Q8 too much to manage at d/c. SW called [facility] and left ms and faxed referral although pt has straight Medicare with [employer] supplement and likely will have high out of pocket cost for home infusion but sent info in case supplemental covers more than expected as pt and spouse live [place] [facility]. SW met bedside with pt and spouse and explained role and discussed above and they are agreeable to referral to [facility] as likely home infusion will be too expensive and dosing is too often for outpt Infusion Clinic. SW called [facility] and willing to review and likely Zosyn cost not an issue or barrier and will review to try to determine if once a week Procrit is a barrier or not. PASRR done in anticipation of SNF. Plan: SW to follow closely for [facility] review and [facility] review to determine SNF vs Home with new [facility] referral and home infusion. SIMON Sarmiento
--- NOTE | 2022-04-18 12:45 | P.PN_ITS ---
Subjective Subjective Interval history: Ms. Wheat is a 82W with PMH afib, breast cancer, bladder cancer s/p cystectomy with urostomy who presented with cough and fevers. She presented to the ED on the day prior with complaint of dropping objects and also a fall. Otherwise she was not having other significant symptoms. Workup in the ER showed lung infiltrate and she was ordered for oral antibiotics and went home on the day before this admission. When she returned to the ER she had fevers, chills, rigors, weakness and a cough. She has a urostomy but noted no abdominal pain or changes to the color of the liquid. She had not had vomiting or diarrhea. No new complaints today. Feels fine. Exam Vital Signs (past 8 hours): - 04/18/22 08:00 04/18/22 08:43 04/18/22 08:43 Temperature Pulse Rate 85 85 Respiratory Rate Blood Pressure 99/51 L 99/51 L Pulse Oximetry 97 Oxygen Delivery Method Room Air Oxygen Flow Rate 0 04/18/22 08:40 04/18/22 12:00 Temperature 97.4 F L Pulse Rate 85 Respiratory Rate 18 Blood Pressure 99/51 L Pulse Oximetry 97 97 Oxygen Delivery Method Room Air Oxygen Flow Rate 0 0 Oxygen Delivery Method Room Air Oxygen Flow Rate 0 Narrative Exam Narrative: GEN:? In no medical distress HEENT: moist mucous membranes, PERRL, wearing glasses. NECK: trachea midline, no JVD PULM:? Clear, no wheezes or crackles CV: irregular, tachycardic ABD: soft, nontender, ostomy draining yellow liquid EXT: warm and well perfused with no edema NEURO: awake, alert, oriented, no focal deficits Objective Labs Result Diagrams: 04/18/22 04:57 04/18/22 04:57 Labs: Laboratory Results - last 24 hr 04/18/22 04/18/22 04:57 04:57 WBC 4.8 RBC 3.21 L Hgb 9.0 L Hct 26.6 L MCV 83.0 MCH 28.1 MCHC 33.8 RDW 18.0 H Plt Count 224 Neut % (Auto) 76.7 H Lymph % (Auto) 11.2 L [place] % (Auto) 11.5 Eos % (Auto) 0.1 L Baso % (Auto) 0.5 Neut # (Auto) 3700 Lymph # (Auto) 500 L [place] # (Auto) 500 Eos # (Auto) 0 Baso # (Auto) 0 Sodium 131 L Potassium 3.6 Chloride 95 L Carbon Dioxide 24 BUN 76 H Creatinine 2.76 H Estimated GFR 17 L BUN/Creatinine Ratio 27.5 H Glucose 88 Calcium 8.5 Total Bilirubin 0.5 AST 452 H ALT 283 H Alkaline Phosphatase 75 C-Reactive Protein 7.9 H NT-Pro-B Natriuret Pep 9710 H Total Protein 7.1 Albumin 3.3 L Globulin 3.8 Albumin/Globulin Ratio 0.9 L PFSH Medical History Atrial fibrillation Bladder cancer Surgical History H/O total cystectomy (03/2014) Status post total abdominal hysterectomy and bilateral salpingo-oophorectomy (ANGELA-BSO) (03/2014) Social History household members: spouse Smoking Status: Former smoker alcohol intake: current Assessment & Plan Assessment & Plan narrative: 1. Acute hypoxemic respiratory failure from pneumonia -patient with fever, leukocytosis, SIRS positive with imaging consistent with pneumonia -CURB 65 score of 3, high risk for morbidity on presentation -trialed outpatient antibiotics and worsened, indicated for IV antibiotics -continue IV ceftriaxone -supplementary O2 for sats <90%, was 88% in ED..? Currently O2 saturation 96% on room air -sputum culture ordered, not available this and yet. -check urine culture..? Positive for Gram-positive bacilli -CT chest ordered...? Opacities right upper lobe consistent with pneumonia and small right pleural effusion Currently no breathing issues. Essentially treatment for pneumonia has been completed. 2. CKD stage 4 with anemia -on procrit as outpatient..? This on hold until outpatient again. -creatinine stable and improved today -GFR improved to 17 today 3. Hypothyroid -continue synthroid 4. Atrial fibrillation, chronic -continue diltiazem, metoprolol, coumadin - INR 2.9 last measured.? INR stable on current dose of Coumadin 3 mg daily 5. Pneumonia confirmed on CT of the chest with right upper lobe opacities.? Treated with azithromycin and ceftriaxone. Patient now transitioned to Zosyn for urinary tract infection. And pneumonias essentially treated. 6. Small right pleural effusion.? 7. Elevated BNP of 21,800 initially and now decreased to 9710 consistent with treatment of congestive heart failure exacerbation.? Continue with diuresis.? Initially furosemide 40 mg IV b.i.d and now furosemide 80 mg p.o. Q12H. follow B DISTRIBUTION CENTER ASSISTANT and potassium.? Also treating with for spironolactone 25 mg daily. 8. Decreased hemoglobin.? Continue to follow, currently stable.? Patient sees Procrit as an outpatient.? This can be continued as outpatient. 9. Hyponatremia.? Stable. ? 10. Urinary tract infection with gram negative bacilli.? 2 bacteria identified. E coli and Pseudomonas. Both sensitive to Zosyn. They are each individually sensitive to oral medication but due to the comorbidities of the patient and her renal failure it would be best to have her on IV antibiotics of Zosyn for the next 5 days. Follow clinically and labs. CODE: Full Proxy: Bryan Wheat, Time Spent With Patient Critical Care time: I spent a total of [] minutes of critical care time on this patient's care today; this time is exclusive of procedural time. Quality VTE Deep Vein Thrombosis/Pulmonary Embolism Present on Admission: No
[2022-04-18] MEDS: FUROSEMIDE 40 MG TABLET 80 MG PO (17:10)
[2022-04-18] MEDS: WARFARIN 1 MG TABLET 3 MG PO (17:10)
[2022-04-18] MEDS: ATORVASTATIN 20 MG TABLET 40 MG PO (17:11)
[2022-04-18] MEDS: GABAPENTIN 300 MG CAPSULE 900 MG PO (21:52)
[2022-04-18] MEDS: dilTIAZem CD 120 MG CAP PO (21:54)
[2022-04-18] MEDS: METOPROLOL IR 25 MG TABLET 50 MG PO (21:54)
[2022-04-19] VITALS (18 sets, daily range): BP systolic 87–137; BP diastolic 45–74; PULSE 64–77; RESP 14–16; TEMP 36.2–36.7; O2SAT 95–97
[2022-04-19] MEDS: LEVOTHYROXINE 50 MCG TABLET PO (06:08)
[2022-04-19] MEDS: lisinopriL 5 MG TABLET PO (08:02)
[2022-04-19] MEDS: METOPROLOL IR 25 MG TABLET 50 MG PO ×2 (08:02→21:03)
[2022-04-19] MEDS: SPIRONOLACTONE 25 MG TABLET PO (08:02)
[2022-04-19] MEDS: FUROSEMIDE 40 MG TABLET 80 MG PO (08:02)
[2022-04-19] MEDS: HYDRALAZINE 25 MG TABLET PO ×2 (08:02→21:04)
[2022-04-19 10:30] LABS: Add Manual Diff / Slide Review NO; Basophils Absolute Auto 0 /uL (0-100); Basophils Percent Auto 0.5 % (0-2); Eosinophils Absolute Auto 0 /uL (0-450); Eosinophils Percent Auto 0.1 % (2-4); Hematocrit 29.8 % (36-46); Hemoglobin 9.8 g/dL (12.0-16.0); Lymphocytes Absolute Auto 400 /uL (1100-4500); Lymphocytes Percent Auto 8.1 % (25-40); Mean Corpuscular HGB Conc 32.8 % (30-36); Mean Corpuscular Hemoglobin 27.5 PG (26-34); Monocytes Absolute Auto 300 /uL (0-900); Monocytes Percent Auto 6.5 % (3-14); Neutrophils Absolute Auto 4400 /uL (1500-7000); Neutrophils Percent Auto 84.8 % (50-75); Platelet Count 301 X10^3/uL (150-400); Red Blood Cell Count 3.55 X10^6/uL (4.0-5.2); Red Cell Distribution Width 17.9 % (11.6-14.8); White Blood Cell Count 5.2 X10^3/uL (4.5-11.0)
[2022-04-19] MEDS: SODIUM CHLORIDE 0.9% 500 ML 1000 ML IV (10:30)
[2022-04-19 10:44] LABS: BUN Creatinine Ratio 24.2 (6-22); Blood Urea Nitrogen 80 mg/dL (7-17); C-Reactive Protein Quant 4.7 mg/dL (<1.0); Calcium 8.8 mg/dL (8.4-10.2); Carbon Dioxide 22 mmol/L (22-32); Chloride 90 mmol/L (98-107); Estimated Glomerular Filt Rate 14 mL/min (>60); Glucose 152 mg/dL (80-110); HEMOLYSIS < 15 (0-50); Potassium 3.3 mmol/L (3.4-5.1); Sodium 128 mmol/L (137-145)
--- NOTE | 2022-04-19 10:46 | PT.IPTN ---
Current Diagnoses Pneumonia, unspecified organism (04/14/22) Physical Therapy Treatment Note M2 PT-IP Current Condition Start: 04/17/22 12:41 Freq: NEEDED Status: Active Protocol: Document 04/17/22 11:00 AB (Rec: 04/17/22 12:52 AB [id number]) Physical Therapy Current Condition Current Condition Evaluation Date 04/17/22 Treatment Diagnosis PNA; sepsis; difficulty in walking Onset Date 04/14/22 M3 PT-IP Subjective Start: 04/17/22 12:41 Freq: NEEDED Status: Active Protocol: Document 04/19/22 10:26 KS (Rec: 04/19/22 13:14 KS [id number]) Subjective Physical Therapy Visit Type Type Treatment Note Visit Start Time 10:26 Visit Stop Time 10:46 Total Visit Minutes 20 Notes Spouse present during treatment Number of BEEF KILLER Visits 2 Physical Therapy Visit Comments Patient Comments agreeable to do PT M4 PT-IP Mobility and Gait Start: 04/17/22 12:41 Freq: NEEDED Status: Active Protocol: Document 04/19/22 10:26 KS (Rec: 04/19/22 13:14 KS [id number]) PT-Transfer Assessment Sit to and From Stand Sit to and from Stand Contact Guard Assistance,1 Person Assistance,Use of Upper Extremities Equipment Transfer Assistive Device Gait Belt,Front Wheeled Walker Orthotic/Prosthetic Devices or Brace: No Transfers Transfer Destination Chair Transfer Technique sit<>stand Transfer Ability Level of Assist Contact Guard Assistance,1 Person Assistance,Use of Upper Extremities Comments Mobility Comments Pt in chair upon arrival w/ spouse in room. Completed LE exercises to promote blood flow ad strengthening. Pt CGA for sit<>Stand w/ cues for hand placement/not to pull up from FWW. Upon standing, pt reported dizziness. BP assessed and 75/41 in standing . Instructed pt to sit down, reclined pt and took BP again and 87/49 but denied dizziness . Informed RN and pt left w/ RN attending. Gait Assessment Comments Gait Comments Unable due to symptomatic low BP. Stair Climbing Assessment Comments Stair Climbing Comments Unable to assess. PT-Balance Assessment Sitting Balance and Reactions Static Sitting Balance Ability Normal Dynamic Sitting Balance Ability Good Standing Balance and Reactions Static Standing Balance Ability Fair Device Used FWW M5 PT-IP Objective Assessments Start: 04/17/22 12:41 Freq: NEEDED Status: Active Protocol: Document 04/17/22 11:00 AB (Rec: 04/17/22 12:52 AB [id number]) Orientation Orientation/Cognition Level of Alertness Alert Orientation Name,Place,Situation Language Function Ability No Deficits Noted Safety Awareness Decreased Safety Awareness Memory Description Short Term Impaired Gross Range of Motion Lower Extremity ROM Assessment Within Functional Limits Strength Lower Extremity Strength Assessment Within Functional Limits Coordination Assessment Gross Coordination Gross Coordination WNL Sensation Assessment Sensation Gross Sensation WNL Muscle Tone Muscle Tone WNL Yes M6 PT-IP Treatment Start: 04/17/22 12:41 Freq: NEEDED Status: Active Protocol: Document 04/19/22 10:26 KS (Rec: 04/19/22 13:14 KS [id number]) Physical Therapy Treatment Exercises Exercises Ankle Pumps,Gluteal Sets,Quad Sets,Straight Leg Raises Education Education Provided Safety M7 PT-IP Assessment and Plan Start: 04/17/22 12:41 Freq: NEEDED Status: Active Protocol: Document 04/19/22 10:26 KS (Rec: 04/19/22 13:14 KS [id number]) PT Summary Assessment and Plan Potential Rehabilitation Potential Good Summary Impairments Pain,ROM,Strength,Balance, Coordination,Sensation,Tone, Cognition,Bed Mobility, Transfers,Gait,Activity Tolerance Progress Towards Goals Slow Progress due to Medical Issues,Slow Progress due to Activity Tolerance Assessment Summary Unable to progress mobility due to symptomatic low BP, but pt CGA for sit<>stand and demonstrated good tolerance for LE exercises. Pt still feeling weak compared to baseline and would benefit from SNF to improve strength and activity tolerance. If she does go home she will need HHPT and / assistance. Goals Bed Mobility Goal Independent Transfer Goal Independent,Front Wheeled Walker Gait Goal Independent,Front Wheel Walker Gait Distance 200 Other Goals improve transfers without AD mod I and ambulation without AD ~ 150 ft mod I Days to Meet Goals 10 Frequency of Treatment Frequency Of Treatment Once a Day Treatment Plan Physical Therapy Treatment Plan Bed Mobility Training,Transfer Training,Gait Training, Therapeutic Exercise,Balance Retraining,Discharge Planning, Hot or Cold Pack,Neuromuscular Re-ed,Coordination Retraining Recommendations To Nursing Amount of Assist Needed 1 Person Assist Discharge Recommendations PT Discharge Recommendations Home with Assistance,Home Health,SNF Rehab,Home vs SNF Equipment Needed for Home Before FWW Discharge Transportation Needs at Discharge Private Vehicle,Wheelchair/ Cabulance
[2022-04-19 10:54] LABS: Magnesium 1.8 mg/dL (1.6-2.3)
[2022-04-19 10:55] LABS: Alanine Aminotransferase 242 IU/L (<35); Albumin 3.7 g/dL (3.5-5.0); Albumin Globulin Ratio 0.9 (1.0-2.8); Alkaline Phosphatase 83 U/L (38-126); Aspartate Aminotransferase 244 IU/L (14-36); Bilirubin Total 0.6 mg/dL (0.2-1.3); Bilirubin Unconjugated 0.3 mg/dL (0.0-1.1); HEMOLYSIS < 15 (0-50); Total Protein 7.7 g/dL (6.3-8.2)
--- NOTE | 2022-04-19 10:59 | PC.NURSE ---
Pt BP 87/56, Dr. Mauro notified and 500cc bolus NS ordered and administered.
[2022-04-19] MEDS: PIPERACILLIN/TAZO 3.375 GM in SODIUM CHLORIDE 0.9% 100 ML IV ×2 (11:20→23:06)
--- NOTE | 2022-04-19 11:20 | PC.NURSE ---
repeat BP post NS bolus: 105/69 (MAP 80)
--- NOTE | 2022-04-19 12:43 | CM.DPC ---
DCP IV-Abx planning Per MD, pt was diuresed and then had bp issues/orthostatics and not yet medically stable to d/c yet and will review her current Zosyn day 2 changed to Q12 to determine if still remains the right IV-Abx. If Zosyn, then pt would need midline for her 7 day total dosing but if changed could need PICC. ZARI requested cancellation clerk follow up with MD today as it's a weekend and would be better to place that order for midline or PICC today if possible d/c tomorrow as the weekend DI company can take up to 4 hours to arrive. ZARI updated [facility] and will keep them updated tomorrow to determine if pt stable for d/c yet Sun. Plan: ZARI to follow in the AM to determine if PICC or midline placed and confirm IV-Abx at d/c with plan of [facility] at discharge before safe return home with supportive spouse on [facility]. Lisa Marrero, RETAIL RECEIVING CLERK
--- NOTE | 2022-04-19 15:11 | PM.PN.1 ---
Subjective Subjective Date Patient Seen: 04/19/22 Interval history: Ms. Wheat is a 82W with PMH afib, breast cancer, bladder cancer s/p cystectomy with urostomy admitted with E. coli and Pseudomonas bacteremia. E. coli is ESBL organism and pseudomonas is carbapenem resistant. Thankfully both sensitivities show susceptibility to zosyn at this time and she continues to improve. She was initially hypoxic with some concern for volume overload and had been on diuretic therapy. Today she feels a bit weaker, and this morning after diuretic dosing she became hypotensive. She was given fluid bolus of 500 cc to which she was responsive. Creatinine slightly worsened likely due to over diuresis. Diuretic medications were held. Exam Vital Signs (past 8 hours): - 04/19/22 08:02 04/19/22 08:02 04/19/22 08:36 Temperature 97.2 F L Pulse Rate 77 77 70 Respiratory Rate 16 Blood Pressure 137/74 137/74 137/74 Pulse Oximetry 96 Oxygen Delivery Method 04/19/22 08:43 04/19/22 10:00 04/19/22 10:35 Temperature Pulse Rate 75 Respiratory Rate Blood Pressure 118/59 L 99/51 L Pulse Oximetry 97 Oxygen Delivery Method Room Air 04/19/22 10:27 04/19/22 10:46 04/19/22 11:12 Temperature Pulse Rate Respiratory Rate Blood Pressure 87/45 L 103/50 L 105/69 Pulse Oximetry Oxygen Delivery Method 04/19/22 13:50 04/19/22 14:00 04/19/22 15:05 Temperature 97.8 F Pulse Rate 66 65 Respiratory Rate 14 Blood Pressure 127/64 110/52 L Pulse Oximetry 97 97 Oxygen Delivery Method Room Air Oxygen Delivery Method Room Air Oxygen Flow Rate 0 Narrative Exam Narrative: GEN:?elderly female, no acute disterss. HEENT: moist mucous membranes, PERRL, wearing glasses. NECK: trachea midline, no JVD PULM:? Clear, no wheezes or crackles CV: irregular, tachycardic ABD: soft, nontender, ostomy draining yellow liquid EXT: warm and well perfused with no edema NEURO: awake, alert, oriented, no focal deficits Objective Labs Result Diagrams: 04/19/22 09:40 04/19/22 09:40 Labs: Laboratory Results - last 24 hr 04/19/22 04/19/22 04/19/22 09:40 09:40 09:40 WBC 5.2 RBC 3.55 L Hgb 9.8 L Hct 29.8 L MCV 84.0 MCH 27.5 MCHC 32.8 RDW 17.9 H Plt Count 301 Neut % (Auto) 84.8 H Lymph % (Auto) 8.1 L [place] % (Auto) 6.5 Eos % (Auto) 0.1 L Baso % (Auto) 0.5 Neut # (Auto) 4400 Lymph # (Auto) 400 L [place] # (Auto) 300 Eos # (Auto) 0 Baso # (Auto) 0 Sodium 128 L Potassium 3.3 L Chloride 90 L Carbon Dioxide 22 BUN 80 H Creatinine 3.30 H Estimated GFR 14 L BUN/Creatinine Ratio 24.2 H Glucose 152 H Calcium 8.8 Magnesium 1.8 Total Bilirubin Conjugated Bilirubin Unconjugated Bilirubin AST ALT Alkaline Phosphatase C-Reactive Protein 4.7 H Total Protein Albumin Globulin Albumin/Globulin Ratio 04/19/22 09:40 WBC RBC Hgb Hct MCV MCH MCHC RDW Plt Count Neut % (Auto) Lymph % (Auto) [place] % (Auto) Eos % (Auto) Baso % (Auto) Neut # (Auto) Lymph # (Auto) [place] # (Auto) Eos # (Auto) Baso # (Auto) Sodium Potassium Chloride Carbon Dioxide BUN Creatinine Estimated GFR BUN/Creatinine Ratio Glucose Calcium Magnesium Total Bilirubin 0.6 Conjugated Bilirubin 0.0 Unconjugated Bilirubin 0.3 AST 244 H ALT 242 H Alkaline Phosphatase 83 C-Reactive Protein Total Protein 7.7 Albumin 3.7 Globulin 4.0 Albumin/Globulin Ratio 0.9 L [facility] Medical History Atrial fibrillation Bladder cancer Surgical History H/O total cystectomy (03/2014) Status post total abdominal hysterectomy and bilateral salpingo-oophorectomy (ANGELA-BSO) (03/2014) Social History household members: spouse Smoking Status: Former smoker alcohol intake: current Assessment & Plan Assessment & Plan narrative: 1. Acute hypoxemic respiratory failure from pneumonia -patient with fever, leukocytosis, SIRS positive with imaging consistent with pneumonia -CURB 65 score of 3, high risk for morbidity on presentation -trialed outpatient antibiotics and worsened, indicated for IV antibiotics -continue IV zosyn as discussed below. -supplementary O2 for sats <90%, was 88% in ED..? Currently O2 saturation 96% on room air -sputum culture ordered, not available this and yet. -check urine culture..? Positive for Gram-positive bacilli -CT chest ordered...? Opacities right upper lobe consistent with pneumonia and small right pleural effusion Currently no breathing issues. Essentially treatment for pneumonia has been completed. -was started on diuretics for possible volume overload, but now will hold diuretic therapy. 2. CKD stage 4 with anemia -on procrit as outpatient..? This on hold until outpatient again. -creatinine slightly worsened today likely from over-diueresis. 3. Hypothyroid -continue synthroid 4. Atrial fibrillation, chronic -continue diltiazem, metoprolol, coumadin - INR 2.9 last measured.? INR stable on current dose of Coumadin 3 mg daily 5. Pneumonia confirmed on CT of the chest with right upper lobe opacities.? Treated with azithromycin and ceftriaxone. Patient now transitioned to Zosyn for urinary tract infection. And pneumonias essentially treated. 6. Small right pleural effusion.? 7. Elevated BNP of 21,800 initially and now decreased to 9710 consistent with treatment of acute diastolic congestive heart failure exacerbation.? Continued with diuresis with initially furosemide 40 mg IV b.i.d and then furosemide 80 mg p.o. Q12H. Also treated with for spironolactone 25 mg daily. All held now given hypotension today and worsening JENNIFER. EF is normal on TTE though unable to assess diastolic function in afib. 8. Chronic anemia.? Continue to follow, currently stable.? [facility] This can be continued as outpatient in the near future and can be withheld temporarily at SNF for continued antibiotic therapy. 9. Hyponatremia.? Stable. ? 10. Urinary tract infection and bacteremia with gram negative bacilli.? 2 bacteria identified. E coli and Pseudomonas. Both sensitive to Zosyn but E. coli is ESBL and Pseudomonas is carbapenem resistant. Thankfully both sensitive to zosyn and patient appears to be improving clinically thus far. Will need 7-14 days of antibiotic therapy. Follow clinically and labs. Dispo: likely discharge to SNF to complete IV antibiotics, if Cr and hypotension improve. CODE: Full Proxy: nader Fitzgerald Time Spent With Patient Critical Care time: I spent a total of [] minutes of critical care time on this patient's care today; this time is exclusive of procedural time. Quality VTE Deep Vein Thrombosis/Pulmonary Embolism Present on Admission: No
[2022-04-19] MEDS: ATORVASTATIN 20 MG TABLET 40 MG PO (16:48)
[2022-04-19] MEDS: WARFARIN 1 MG TABLET 3 MG PO (16:49)
[2022-04-19] MEDS: GABAPENTIN 300 MG CAPSULE 900 MG PO (21:02)
[2022-04-19] MEDS: dilTIAZem CD 120 MG CAP PO (21:03)
[2022-04-20] VITALS (10 sets, daily range): BP systolic 101–137; BP diastolic 54–70; PULSE 63–77; RESP 16; TEMP 36.3–36.6; O2SAT 94–99
[2022-04-20] MEDS: LEVOTHYROXINE 50 MCG TABLET PO (06:40)
[2022-04-20] MEDS: METOPROLOL IR 25 MG TABLET 50 MG PO ×3 (08:40→21:25)
[2022-04-20] MEDS: lisinopriL 5 MG TABLET PO (08:41)
[2022-04-20] MEDS: HYDRALAZINE 25 MG TABLET PO ×3 (08:41→21:26)
[2022-04-20] MEDS: PIPERACILLIN/TAZO 3.375 GM in SODIUM CHLORIDE 0.9% 100 ML IV ×2 (11:21→22:49)
--- NOTE | 2022-04-20 13:16 | CM.DPC ---
Addendum entered by SIMON Sarmiento 04/20/22 13:24: ADD: Return call from [facility] stating pt on their schedule for 1530 teaching bedside at the hospital tomorrow 04/21 and SW faxed updated clinicals for [facility] to review. SW met bedside to update pt and spouse and now expressing anxiety over d/c to home and considering SNF again. SW discussed options again of home with home infusion for 3 days and [facility] vs SNF. After discussing with friends and each other decision was made to d/c to [facility] for rehab and IV-Abx for at least 7-10 days. SW called [facility] and updated and pt currently gets her IV-Abx at 1100 and 2300 and per RN can take 3-4 hours to infuse and therefore [facility] will plan on likely transport around 1500 as they will not have the abx in their building until tomorrow evening for her second dose. SW updated MD and left msg for [facility] of likely not needing home infusion. BF Original Note: DCP IV-Abx planning Per MD, pt's midline was placed and medically stable for d/c with IV Zosyn Q12 for total of 7 days and today is day 3 for when d/c plan secured. SW met bedside with pt and spouse and explained role again and they confirm preference would be home with home infusion rather than SNF but SNF if only option as Q12 too frequent for outpt infusion clinic. SW discussed quoted out of pocket of $425 a week from [facility] due to straight Medicare. Spouse states this would not be a barrier. SW called [facility] on-call pharmacist who cannot confirm if cost would be less since pt only has 4 days left of IV-Abx but that teaching would likely need to happen at the hospital prior to d/c since pt lives on [facility] and no teaching available today but will call their extrusion bender at [facility] to determine if they have availability tomorrow Thu04/21/22. If no availability to complete teaching and open pt to service then plan would be SNF. ZARI explained that pt likely cannot remain in the hospital just for IV-Abx course as she is medically stable to d/c to lower level of care. Plan: SW to follow closely for return call from [facility] to determine home infusion vs SNF today or tomorrow. SIMON Sarmiento
--- NOTE | 2022-04-20 13:25 | P.PN_ITS ---
Subjective Subjective Date Patient Seen: 04/20/22 Interval history: Ms. Wheat is a 82W with PMH afib, breast cancer, bladder cancer s/p cystectomy with urostomy admitted with E. coli and Pseudomonas bacteremia. E. coli is ESBL organism and pseudomonas is carbapenem resistant. Thankfully both sensitivities show susceptibility to zosyn at this time and she continues to improve today. Darya nguyen has no complaints. After discussion again, they would like to do home infusion for home antibiotics given need for IV therapy. Ultimately they decided with SNF but will discharge tomorrow. Exam Vital Signs (past 8 hours): - 04/20/22 11:00 Temperature 97.3 F L Pulse Rate 63 Respiratory Rate 16 Blood Pressure 101/54 L Pulse Oximetry 98 Oxygen Flow Rate 0 Oxygen Delivery Method Room Air Oxygen Flow Rate 0 Narrative Exam Narrative: GEN:?elderly female, no acute disterss. HEENT: moist mucous membranes, PERRL, wearing glasses. NECK: trachea midline, no JVD PULM:? Clear, no wheezes or crackles CV: irregular, tachycardic ABD: soft, nontender, ostomy draining yellow liquid EXT: warm and well perfused with no edema NEURO: awake, alert, oriented, no focal deficits Objective Labs Result Diagrams: 04/19/22 09:40 04/19/22 09:40 [facility] Medical History Atrial fibrillation Bladder cancer Surgical History H/O total cystectomy (03/2014) Status post total abdominal hysterectomy and bilateral salpingo-oophorectomy (ANGELA-BSO) (03/2014) Social History household members: spouse Smoking Status: Former smoker alcohol intake: current Assessment & Plan Assessment & Plan narrative: 1. Acute hypoxemic respiratory failure from pneumonia -patient with fever, leukocytosis, SIRS positive with imaging consistent with pneumonia -CURB 65 score of 3, high risk for morbidity on presentation -trialed outpatient antibiotics and worsened, indicated for IV antibiotics given ESBL and carbapenem resistant organisms. -continue IV zosyn as discussed below. -supplementary O2 for sats <90%, was 88% in ED.? Currently O2 saturation 96% on room air -CT chest ordered...? Opacities right upper lobe consistent with pneumonia and small right pleural effusion Currently no breathing issues. Essentially treatment for pneumonia has been completed with UTI treatment noted below. -was started on diuretics for possible volume overload, but now held with hypotension. 2. CKD stage 4 with anemia -on procrit as outpatient..? This on hold until outpatient again. -creatinine slightly worsened today likely from over-diueresis. 3. Hypothyroid -continue synthroid 4. Atrial fibrillation, chronic -continue diltiazem, metoprolol, coumadin - INR 2.9 last measured.? INR stable on current dose of Coumadin 3 mg daily 5. Pneumonia confirmed on CT of the chest with right upper lobe opacities.? Treated with azithromycin and ceftriaxone. Patient now transitioned to Zosyn for urinary tract infection. And pneumonias essentially treated. 6. Small right pleural effusion.? 7. Elevated BNP of 21,800 initially and now decreased to 9710 consistent with treatment of acute diastolic congestive heart failure exacerbation.? Continued with diuresis with initially furosemide 40 mg IV b.i.d and then furosemide 80 mg p.o. Q12H. Also treated with for spironolactone 25 mg daily. All held now given hypotension today and worsening JENNIFER. EF is normal on TTE though unable to assess diastolic function in afib. 8. Chronic anemia.? Continue to follow, currently stable.? Patient sees [facility] as an outpatient.? This can be continued as outpatient in the near future 9. Hyponatremia.? Stable. ? 10. Urinary tract infection with multidrug resistant E coli and Pseudomonas. Both sensitive to Zosyn but E. coli is ESBL and Pseudomonas is carbapenem resistant. Thankfully both sensitive to zosyn and patient appears to be improving clinically thus far. Will need 7 days of antibiotic therapy (ends on 04/25/22). She elects for transfer to SNF. Follow clinically and labs. Dispo: likely discharge to SNF to complete IV antibiotics tomorrow. CODE: Full Proxy: Bryan Wheat, Time Spent With Patient Critical Care time: I spent a total of [] minutes of critical care time on this patient's care today; this time is exclusive of procedural time. Quality VTE Deep Vein Thrombosis/Pulmonary Embolism Present on Admission: No
--- NOTE | 2022-04-20 14:41 | PT.IPTN ---
Current Diagnoses Pneumonia, unspecified organism (04/14/22) Physical Therapy Treatment Note M2 PT-IP Current Condition Start: 04/17/22 12:41 Freq: NEEDED Status: Active Protocol: Document 04/17/22 11:00 AB (Rec: 04/17/22 12:52 AB [id number]) Physical Therapy Current Condition Current Condition Evaluation Date 04/17/22 Treatment Diagnosis PNA; sepsis; difficulty in walking Onset Date 04/14/22 M3 PT-IP Subjective Start: 04/17/22 12:41 Freq: NEEDED Status: Active Protocol: Document 04/20/22 14:41 AW (Rec: 04/20/22 15:07 AW [id number]) Subjective Physical Therapy Visit Type Type Treatment Note Visit Start Time 14:05 Visit Stop Time 14:40 Total Visit Minutes 35 Notes Spouse present during treatment 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 of DIESEL TRUCK DRIVER Visits 2 Physical Therapy Visit Comments Patient Comments agreeable to do PT M4 PT-IP Mobility and Gait Start: 04/17/22 12:41 Freq: NEEDED Status: Active Protocol: Document 04/20/22 14:41 AW (Rec: 04/20/22 15:07 AW [id number]) PT-Bed Mobility Assessment Supine to Sit Supine to Sit Standby Assistance Sit to Supine Sit to Supine Standby Assistance PT-Transfer Assessment Sit to and From Stand Sit to and from Stand Contact Guard Assistance,1 Person Assistance,Use of Upper Extremities Equipment Transfer Assistive Device Gait Belt,Front Wheeled Walker Orthotic/Prosthetic Devices or Brace: No Transfers Transfer Destination Bed,Chair,Toilet Transfer Technique ambulated with FWW Transfer Ability Level of Assist Contact Guard Assistance,1 Person Assistance,Use of Upper Extremities Comments Mobility Comments Pt was lying in the bed watching football as PT arrived. BP 112/55 HR 51. She sat up EOB SBA and stood CGA. She transferred to the chair with FWW CGA demonstrating poor control of descent. Educated pt to use her arms to control her descent and she was then able to complete 10 slow reps of sit to stand ( untimed) with improved form. BP after sit to stands was 104 /53 HR 62; pt denied lightheadedness. She stood and used the FWW to ambulate in the room a total of 75 feet SBA. She transferred to the toilet CGA. After toileting, she stood CGA and walked to the sink for handwashing before returning to the bed. Pt was left with call light in reach. Gait Assessment Gait Gait Assistance Required: Standby Assistance Distance (Feet) 75 Assistive Devices Assistive Device Gait Belt,Front Wheeled Walker Orthotic/Prosthetic Devices or Brace: No Gait Deviations General Gait Pattern Decreased Stride Length, Decreased Feet Clearance Factors Limiting Gait Function Factors Limiting Gait Function Decreased Activity Tolerance, Decreased Strength,Difficulty Following Directions,Poor Balance Comments Gait Comments Pt has improved activity tolerance today but does not feel she is ready to ambulated without AD. Asked if she would like to try, she states I probably could if I held onto your arm. Stair Climbing Assessment Comments Stair Climbing Comments Not assessed. Pt likely able to complete tomorrow. PT-Balance Assessment Sitting Balance and Reactions Static Sitting Balance Ability Normal Dynamic Sitting Balance Ability Good Standing Balance and Reactions Static Standing Balance Ability Fair Dynamic Standing Balance Ability Fair Device Used FWW M5 PT-IP Objective Assessments Start: 04/17/22 12:41 Freq: NEEDED Status: Active Protocol: Document 04/17/22 11:00 AB (Rec: 04/17/22 12:52 AB [id number]) Orientation Orientation/Cognition Level of Alertness Alert Orientation Name,Place,Situation Language Function Ability No Deficits Noted Safety Awareness Decreased Safety Awareness Memory Description Short Term Impaired Gross Range of Motion Lower Extremity ROM Assessment Within Functional Limits Strength Lower Extremity Strength Assessment Within Functional Limits Coordination Assessment Gross Coordination Gross Coordination WNL Sensation Assessment Sensation Gross Sensation WNL Muscle Tone Muscle Tone WNL Yes M6 PT-IP Treatment Start: 04/17/22 12:41 Freq: NEEDED Status: Active Protocol: Document 04/20/22 14:41 AW (Rec: 04/20/22 15:07 AW [id number]) Physical Therapy Treatment Other Treatments Other Treatment Performed Pt states she has been doing her exercises. In addition, she completed sit to stand x 10 today with cues to use arms to control descent. M7 PT-IP Assessment and Plan Start: 04/17/22 12:41 Freq: NEEDED Status: Active Protocol: Document 04/20/22 14:41 AW (Rec: 04/20/22 15:07 AW [id number]) PT Summary Assessment and Plan Potential Rehabilitation Potential Good Summary Impairments Pain,ROM,Strength,Balance, Coordination,Sensation,Tone, Cognition,Bed Mobility, Transfers,Gait,Activity Tolerance Progress Towards Goals Progressing Toward Goals,Slow Progress due to Activity Tolerance Assessment Summary Barbara's BP was low today but she was asymptomatic. She toelrated walking 75 feet with FWW, transfers, and sit to stand x 10 without complaint of lightheadedness or pain. Her capacity remains below her functional baseline. She would benefit from SNF rehab to improve her strength and mobility independence. If she goes home, would require HH PT . Goals Bed Mobility Goal Independent Transfer Goal Independent,Front Wheeled Walker Gait Goal Independent,Front Wheel Walker Gait Distance 200 Other Goals improve transfers without AD mod I and ambulation without AD ~ 150 ft mod I Days to Meet Goals 10 Frequency of Treatment Frequency Of Treatment Once a Day Treatment Plan Physical Therapy Treatment Plan Bed Mobility Training,Transfer Training,Gait Training, Therapeutic Exercise,Balance Retraining,Discharge Planning, Hot or Cold Pack,Neuromuscular Re-ed,Coordination Retraining Recommendations To Nursing Amount of Assist Needed 1 Person Assist Discharge Recommendations PT Discharge Recommendations Home with Assistance,Home Health,SNF Rehab,Home vs SNF Equipment Needed for Home Before FWW Discharge Transportation Needs at Discharge Private Vehicle,Wheelchair/ Cabulance
--- NOTE | 2022-04-20 15:02 | PC.NURSE ---
a/o, voices needs. patient and vocal about wanting to d/c home. not to SNF. CM working on d/c. as of this moment, [facility] will be here tomorrow to do teaching w/ the . they will be here at 1530. provided some education for and on her LUE midline. hep flushes ordered as midline does not return blood. report to darleen.
[2022-04-20] MEDS: ATORVASTATIN 20 MG TABLET 40 MG PO (16:40)
[2022-04-20] MEDS: WARFARIN 1 MG TABLET 3 MG PO (16:40)
[2022-04-20] MEDS: GABAPENTIN 300 MG CAPSULE 900 MG PO (21:26)
[2022-04-20] MEDS: dilTIAZem CD 120 MG CAP PO (21:26)
[2022-04-21] MEDS: LEVOTHYROXINE 50 MCG TABLET PO (05:19)
[2022-04-21 06:00] VITALS: O2SAT 96
[2022-04-21 07:00] VITALS: BP 125/66; PULSE 73; RESP 18; TEMP 36.7; O2SAT 99
[2022-04-21 07:50] LABS: INR 2.9 (0.9-1.3); Prothrombin Time 33.2 SECONDS (10.1-12.7)
[2022-04-21 07:54] LABS: BUN Creatinine Ratio 22.2 (6-22); Blood Urea Nitrogen 81 mg/dL (7-17); Calcium 9.1 mg/dL (8.4-10.2); Carbon Dioxide 20 mmol/L (22-32); Chloride 91 mmol/L (98-107); Estimated Glomerular Filt Rate 12 mL/min (>60); Glucose 77 mg/dL (80-110); HEMOLYSIS < 15 (0-50); Potassium 4.2 mmol/L (3.4-5.1); Sodium 129 mmol/L (137-145)
--- NOTE | 2022-04-21 08:30 | PM.DS.1 ---
History of Present Illness History of Present Illness Date Patient Seen: 04/21/22 Time Patient Seen: 13:55 Chief complaint: fever and shaking Narrative: Ms. Wheat is a 82W with PMH afib, breast cancer, bladder cancer s/p cystectomy with urostomy who presents with cough and fevers. Yesterday she presented to the ED with complaint of dropping objects and also a fall. Otherwise she was not having other significant symptoms. Workup showed lung infiltrate and she was ordered for oral antibiotics and went home. Today she returned with fevers, chills, rigors, weakness and a cough. She has a urostomy but noted no abdominal pain or changes to the color of the liquid. She has not had vomiting or diarrhea. In the ED workup was done, vitals notable for temp 103.2, hr 106, rr 22, pulse ox 88% on room air. Labs notable for WBC 10.4, hgb 9.5, plts 224. BUN 53, creat 2.85. Lactate 1.3. COVID negative. Chest xray showed right upper lung opacity. She was ordered for IV antibiotics and admitted for further treatment. Discharge Providers Provider Date of admission: 04/14/22 12:23 Discharge Date: 04/21/22 Primary care physician: Brionna Jiménez MD Consults: 04/16/22 17:28 Consult to Physical Therapy Evaluate & Treat Comment: Physician Instructions: Evaluate and Treat 04/17/22 14:58 Consult to Home Health Routine Comment: Reason For Exam: Home Health:PT -- strengthening, endurance, safety Discharge provider: Siva Pastor DO Summary Hospital Course Discharge Diagnosis: 1. Acute hypoxemic respiratory failure from pneumonia -patient with fever, leukocytosis, SIRS positive with imaging consistent with pneumonia -CURB 65 score of 3, high risk for morbidity on presentation -trialed outpatient antibiotics and worsened, indicated for IV antibiotics given ESBL and carbapenem resistant organisms. -continue IV zosyn as discussed below. -supplementary O2 for sats <90%, was 88% in ED.? Currently O2 saturation 96% on room air -CT chest ordered.? Opacities right upper lobe consistent with pneumonia and small right pleural effusion -Currently no breathing issues. -Essentially treatment for pneumonia has been completed with UTI treatment noted below. 2. CKD stage 4 with anemia -on procrit as outpatient.? This on hold until outpatient again. Ok not to give procrit infusions while in SNF and resume afterward. 3. Hypothyroid -continue synthroid 4. Atrial fibrillation, chronic -continue diltiazem, metoprolol, coumadin - INR 2.9 last measured.? INR stable on current dose of Coumadin 3 mg daily 5. Pneumonia confirmed on CT of the chest with right upper lobe opacities.? Treated with azithromycin and ceftriaxone.? Patient now transitioned to Zosyn for urinary tract infection.? And pneumonias essentially treated. 6. Small right pleural effusion.? 7. Elevated BNP of 21,800 initially and now decreased to 9710 consistent with treatment of acute diastolic congestive heart failure exacerbation.? Continued with diuresis with initially furosemide 40 mg IV b.i.d and then furosemide 80 mg p.o. Q12H.? Also treated with for spironolactone 25 mg daily. All held now given hypotension today and worsening JENNIFER. EF is normal on TTE though unable to assess diastolic function in afib. 8. Chronic anemia.? Continue to follow, currently stable.? Patient sees Procrit as an outpatient.? This can be continued as outpatient in the near future after SNF stay to finish IV abx. 9. Hyponatremia.? Stable. ? 10. Urinary tract infection with multidrug resistant E coli and Pseudomonas.? Both sensitive to Zosyn but E. coli is ESBL and Pseudomonas is carbapenem resistant. Spoke with ID who recommended 10 additional days of renally adjusted IV levaquin at 500mg q48h and ertapenem 500mg q24h to end on 04/27/22. She elects for transfer to SNF. Hospital Course: Admitted with spesis secondary to PNA vs pyelonephritis. CT chest showed RUL opacity suspicious for PNA so patient given rocephin and azithro. Urine cultures grew pseudomonas resistant to carbapenem and ESBL so after speaking with ID they recommended renally dosed levaquin 500mg q48h and ertapenem 500mg q24h until 04/27 to finish a 10 day course. Patient improved clinically and was discharged to SNF for rehab. Procrit not required while at SNF. Time Spent with Patient Time spent: Greater than 30 minutes Exam Vital Signs (past 8 hours): - 04/21/22 06:00 04/21/22 07:00 Temperature 98.1 F Pulse Rate 73 Respiratory Rate 18 Blood Pressure 125/66 Pulse Oximetry 96 99 Oxygen Delivery Method Room Air Oxygen Flow Rate 0 Oxygen Delivery Method Room Air Oxygen Flow Rate 0 Narrative Exam Narrative: GEN:?elderly female, no acute disterss. HEENT: moist mucous membranes, PERRL, wearing glasses. NECK: trachea midline, no JVD PULM:? Clear, no wheezes or crackles CV: irregular, tachycardic ABD: soft, nontender, ostomy draining yellow liquid EXT: warm and well perfused with no edema NEURO: awake, alert, oriented, no focal deficits Objective Labs Result Diagrams: 04/19/22 09:40 04/21/22 06:10 Labs: Laboratory Results - last 24 hr 04/21/22 04/21/22 06:10 06:25 PT 33.2 H INR 2.9 H Sodium 129 L Potassium 4.2 Chloride 91 L Carbon Dioxide 20 L BUN 81 H Creatinine 3.65 H Estimated GFR 12 L BUN/Creatinine Ratio 22.2 H Glucose 77 L Calcium 9.1 PFSH Medical History Atrial fibrillation Bladder cancer Surgical History H/O total cystectomy (03/2014) Status post total abdominal hysterectomy and bilateral salpingo-oophorectomy (ANGELA-BSO) (03/2014) Social History household members: spouse Smoking Status: Former smoker alcohol intake: current Discharge Plan Discharge Plan Patient Disposition: SNF Transfer to: [facility] Discharge orders & Medications Prescriptions: Continued atorvastatin 40 mg tablet 40 mg PO QPM multivitamin capsule 1 cap PO DAILY warfarin 3 mg tablet 3 mg PO BEDTIME Rx Instructions: 3mg sun, tu, wed, th, sat. 6mg thursday & thursday levothyroxine 50 mcg tablet 1 tab PO DAILY gabapentin 300 mg capsule 900 mg PO BEDTIME Label Comments: need to clarify sig 1 in am 2 qhs metoprolol tartrate 25 mg tablet 50 mg PO TID hydralazine 25 mg Tablet 25 mg PO TID diltiazem HCl 120 mg Tablet 120 mg PO BEDTIME cyanocobalamin (vitamin B-12) 1,000 mcg Tablet 1,000 mcg PO DAILY Rx Instructions: @1300 calcium 600 mg Capsule 600 mg PO DAILY magnesium 250 mg Tablet 250 mg PO BEDTIME cholecalciferol (vitamin D3) [Vitamin D3] 25 mcg (1,000 unit) Tablet 25 mcg PO DAILY Rx Instructions: @1300 Follow up/Referrals: Brionna Jiménez MD [Primary Care Provider] - 2 Weeks Discharge Data Primary Care Provider: Brionna Jiménez Quality VTE Deep Vein Thrombosis/Pulmonary Embolism Present on Admission: No
--- NOTE | 2022-04-21 08:54 | DI.CT.S_ITS ---
PROCEDURE: CT KIDNEY URETER BLADDER (KUB) INDICATIONS: rule out hydronephrosis, kidney stones TECHNIQUE: Axial sections were acquired from the lung bases to the pubic symphysis. Coronal and sagittal reformats were performed. For radiation dose reduction, the following was used: automated exposure control, adjustment of mA and/or kV according to patient size. COMPARISON: [facility], CT, KIDNEY/ URETER/BLADDER, 02/23/2015, 9:10. FINDINGS: Calcified granuloma in the left lung base is unchanged. No acute finding in the included portions of the lower lungs. Nonobstructing calculus in the lower pole right kidney measuring approximately 5 millimeters (series 2, image 36). No additional renal calculus. Multiple left renal cysts. Postsurgical changes of cystectomy with right lower quadrant conduit and ostomy. Diffuse mild dilatation of the right ureter without ureteral calculus. There is no asymmetric perinephric or periureteric fat stranding. Diffuse moderate to large volume of stool in the colon. No pericolonic or mesenteric inflammatory changes. No abnormally dilated loop of bowel. Moderate peristomal hernia containing bowel and fat, new from comparison exam. No acute or suspicious osseous lesion. Degenerative changes throughout the spine. Grossly unremarkable unenhanced CT appearance of the liver, spleen, gallbladder, pancreas, and adrenal glands. IMPRESSION: Postsurgical changes of cystectomy with right lower quadrant ileal conduit and ostomy. Dilatation of the right ureter appears chronic and may reflect stricture near the mass stenosis, although overall the exam is limited by lack of IV contrast. No acute finding. Nonobstructing right renal calculus. Dictated by: Roel Kendall M.D. on 04/21/2022 at 9:32 Approved by: Roel Kendall M.D. on 04/21/2022 at 9:38
[2022-04-21] MEDS: lisinopriL 5 MG TABLET PO (10:28)
[2022-04-21] MEDS: HYDRALAZINE 25 MG TABLET PO (10:28)
[2022-04-21] MEDS: METOPROLOL IR 25 MG TABLET 50 MG PO (10:28)
--- NOTE | 2022-04-21 10:33 | PT.IPTN ---
Current Diagnoses Pneumonia, unspecified organism (04/14/22) Physical Therapy Treatment Note M2 PT-IP Current Condition Start: 04/17/22 12:41 Freq: NEEDED Status: Active Protocol: Document 04/17/22 11:00 AB (Rec: 04/17/22 12:52 AB [id number]) Physical Therapy Current Condition Current Condition Evaluation Date 04/17/22 Treatment Diagnosis PNA; sepsis; difficulty in walking Onset Date 04/14/22 M3 PT-IP Subjective Start: 04/17/22 12:41 Freq: NEEDED Status: Active Protocol: Document 04/21/22 10:33 AW (Rec: 04/21/22 11:27 AW [id number]) Subjective Physical Therapy Visit Type Type Treatment Note Visit Start Time 10:08 Visit Stop Time 10:33 Total Visit Minutes 25 Notes Spouse present during treatment Number of ORDNANCE ARTIFICER HELPER Visits 0 Physical Therapy Visit Comments Patient Comments agreeable to do PT M4 PT-IP Mobility and Gait Start: 04/17/22 12:41 Freq: NEEDED Status: Active Protocol: Document 04/21/22 10:33 AW (Rec: 04/21/22 11:27 AW [id number]) PT-Bed Mobility Assessment Supine to Sit Supine to Sit Standby Assistance PT-Transfer Assessment Sit to and From Stand Sit to and from Stand Contact Guard Assistance,Use of Upper Extremities Equipment Transfer Assistive Device Gait Belt,Front Wheeled Walker Orthotic/Prosthetic Devices or Brace: No Transfers Transfer Destination Chair,Toilet Transfer Technique ambulated with FWW Transfer Ability Level of Assist Contact Guard Assistance,Use of Upper Extremities Comments Mobility Comments Pt was lying in bed as PT arrived. BP 125/70 HR 70. Pt completed supine to sit SBA and then stood CGA. She used FWW to ambulate 120 feet SBA in the halls with 2 short standing rest breaks. She did not feel strong enough to walk without FWW today. On return to the room, she transferred to and from the toilet CGA with heavy reliance on the grab bar. She transferred to the chair CGA. She then agreed to try 5xSTS which she completed with heavy use of her arms in 32 seconds. RPE on modified Jazmin scale was 6/10. Gait Assessment Gait Gait Assistance Required: Standby Assistance Distance (Feet) 120 Assistive Devices Assistive Device Gait Belt,Front Wheeled Walker Orthotic/Prosthetic Devices or Brace: No Gait Deviations General Gait Pattern Decreased Stride Length, Decreased Feet Clearance Factors Limiting Gait Function Factors Limiting Gait Function Decreased Activity Tolerance, Decreased Strength,Difficulty Following Directions,Poor Balance Comments Gait Comments BP stable today and pt was able to increase her gait distance. PT-Balance Assessment Sitting Balance and Reactions Static Sitting Balance Ability Normal Dynamic Sitting Balance Ability Good Standing Balance and Reactions Static Standing Balance Ability Fair Dynamic Standing Balance Ability Fair Device Used FWW Functional Assessments Functional Tests 5 Times Sit to Stand 32 seconds with heavy use of BUE. M5 PT-IP Objective Assessments Start: 04/17/22 12:41 Freq: NEEDED Status: Active Protocol: Document 04/17/22 11:00 AB (Rec: 04/17/22 12:52 AB [id number]) Orientation Orientation/Cognition Level of Alertness Alert Orientation Name,Place,Situation Language Function Ability No Deficits Noted Safety Awareness Decreased Safety Awareness Memory Description Short Term Impaired Gross Range of Motion Lower Extremity ROM Assessment Within Functional Limits Strength Lower Extremity Strength Assessment Within Functional Limits Coordination Assessment Gross Coordination Gross Coordination WNL Sensation Assessment Sensation Gross Sensation WNL Muscle Tone Muscle Tone WNL Yes M6 PT-IP Treatment Start: 04/17/22 12:41 Freq: NEEDED Status: Active Protocol: Document 04/21/22 10:33 AW (Rec: 04/21/22 11:27 AW [id number]) Physical Therapy Treatment Education Education Provided Safety Other Treatments Other Treatment Performed Reviewed exercises for pt to continue independently. Pt also completed 5xSTS in 32 seconds with heavy use of arms to push up. M7 PT-IP Assessment and Plan Start: 04/17/22 12:41 Freq: NEEDED Status: Active Protocol: Document 04/21/22 10:33 AW (Rec: 04/21/22 11:27 AW [id number]) PT Summary Assessment and Plan Potential Rehabilitation Potential Good Summary Impairments Pain,ROM,Strength,Balance, Coordination,Sensation,Tone, Cognition,Bed Mobility, Transfers,Gait,Activity Tolerance Progress Towards Goals Progressing Toward Goals,Slow Progress due to Activity Tolerance Assessment Summary Pt improved her gait distance with FWW today but continues to feel unsafe without AD. She was able to complete 5xSTS in 32 seconds with definite need for UE pushoff which indicates decreased strength. She would benefit from SNF rehab to improve her strength and mobility independence. If she goes home, would require PT. Goals Bed Mobility Goal Independent Transfer Goal Independent,Front Wheeled Walker Gait Goal Independent,Front Wheel Walker Gait Distance 200 Other Goals - up/down 3 steps with B rails SBA -improve transfers without AD mod I and ambulation without AD ~ 150 ft mod I Days to Meet Goals 10 Frequency of Treatment Frequency Of Treatment Once a Day Treatment Plan Physical Therapy Treatment Plan Bed Mobility Training,Transfer Training,Gait Training, Therapeutic Exercise,Balance Retraining,Discharge Planning, Hot or Cold Pack,Neuromuscular Re-ed,Coordination Retraining Recommendations To Nursing Amount of Assist Needed 1 Person Assist Discharge Recommendations PT Discharge Recommendations Home with Assistance,Home Health,SNF Rehab,Home vs SNF Equipment Needed for Home Before FWW Discharge Transportation Needs at Discharge Private Vehicle,Wheelchair/ Cabulance
[2022-04-21 12:23] LABS: COVID19 -Nasal RAPID Negative (Negative)
[2022-04-21] MEDS: levoFLOXacin 750 MG/150 ML PIGGYBACK 100 MG IV (12:53)
[2022-04-21] MEDS: ERTAPENEM 0.5 GM in SODIUM CHLORIDE 0.9% 100 ML IV (14:02)
[2022-04-21 14:34] VITALS: BP 102/50; PULSE 63
[2022-04-21 14:40] VITALS: BP 102/50; PULSE 63
--- NOTE | 2022-04-21 14:50 | CM.DPC ---
DCP Discharge SNF Per MD, pt medically stable to d/c to SNF but IV-Abx to change from Zosyn to Ertapenem Q24 .5mg for total of 14 days but counts from initial IV-Abx started at admission so only 7 more days to discontinue on 04/27/22. ZARI and met bedside with pt and spouse and confirmed that they are nervous about d/c to home with outpt infusion clinic and therefore in agreement that SNF needed for both IV-Abx and therapies for strengthening. Pt's midline placed and can be used for week left of IV-Abx needs. SW called [facility] and confirmed they can accept pt with the changed IV-Abx and have transport scheduled for 1500 today. RN obtained updated COVID swab negative. RN calling report to [facility] now. LEONEL Hickman kindly faxed [facility], signed med list, script, d/c summ, orders to [facility] to review. Plan: Patient to d/c to [facility] today at 1500 for final length of IV-Abx and strengthening before return home with spouse and to winter in [place]. SIMON Sarmiento
--- NOTE | 2022-04-21 16:24 | PC.NURSE ---
Report given to designated facility member at [facility]. Patient was given today's doses of antibiotics as ordered prior to discharge, and tolerated well. All her urostomy and appliance intact, draining clear yellow urine. Denies pain. Patient has no further questions at this time. DANNA midline remains in place for antibiotic therapy as ordered. Patient picked up by WC by facility for discharge with at side.
== END 2022-04-21 15:15 | DRG 193 ==
LOC: ED 12:22 → AC 12:24
PROVIDERS: Internal Medicine; Neuromusculoskeletal Medicine, Sports Medicine; Student in an Organized Health Care Education/Training Program; Admitting Provider Internal Medicine; Emergency Provider Emergency Medicine; PCP Internal Medicine; Referring Provider Emergency Medicine; Visit Provider Internal Medicine
DX: J18.9 Pneumonia, unspecified organism (principal); J96.01 Acute respiratory failure with hypoxia; N18.4 Chronic kidney disease, stage 4 (severe); I48.20 Chronic atrial fibrillation, unspecified; E87.1 Hypo-osmolality and hyponatremia; N39.0 Urinary tract infection, site not specified; D63.1 Anemia in chronic kidney disease; E03.9 Hypothyroidism, unspecified; B96.20 Unspecified Escherichia coli [E. coli] as the cause of diseases classified elsewhere; B96.5 Pseudomonas (aeruginosa) (mallei) (pseudomallei) as the cause of diseases classified elsewhere; Z87.891 Personal history of nicotine dependence; Z20.822 Contact with and (suspected) exposure to COVID-19; Z79.01 Long term (current) use of anticoagulants; W18.30XA Fall on same level, unspecified, initial encounter
CPT/HCPCS: 36415; 70450; 71045; 71250; 72125; 74176; 80048; 80053; 80076; 81001; 82550; 83605; 83690; 83735; 83880; 84145; 84484; 85025; 85610; 86140; 87040; 87077; 87086; 87186; 87635; 93005; 93010; 93306; 96365; 96367; 97110; 97116; 97161; 97530; 99284; C9803; J0696; J1335; J1642; J1940; J1956; J2543

== ENCOUNTER → 2022-04-22 15:03 | Outpatient (CLI) | payer MEDICARE, SELFPAY ==
[2022-04-14 12:34] VITALS: BMI 21.2
[2022-04-22 15:26] VITALS: BP 122/41; PULSE 59; RESP 18; TEMP 36.5; O2SAT 100
== END ==
PROVIDERS: PCP Internal Medicine; Referring Provider Internal Medicine; Visit Provider Internal Medicine
DX: N18.4 Chronic kidney disease, stage 4 (severe) (principal); D63.1 Anemia in chronic kidney disease

== ENCOUNTER → 2022-04-22 15:34 | Outpatient (CLI) | payer MEDICARE, SELFPAY ==
[2022-04-14 12:34] VITALS: BMI 21.2
[2022-04-22] MEDS: EPOETIN ALFA-EPBX 10,000 UNIT/ML VIAL 10000 UNIT SUBCUT (16:38)
== END ==
PROVIDERS: Family Provider Internal Medicine; PCP Internal Medicine; Referring Provider Internal Medicine; Visit Provider Internal Medicine
DX: N18.4 Chronic kidney disease, stage 4 (severe) (principal); D63.1 Anemia in chronic kidney disease
CPT/HCPCS: 85014; 85018; 96365; 96372; J1335; Q5106

== ENCOUNTER 2022-04-26 10:55 | Inpatient (IN) | payer MEDICARE, SELFPAY ==
[2022-04-14 12:34] VITALS: BMI 21.2
[2022-04-26] VITALS (18 sets, daily range): BP systolic 146–179; BP diastolic 61–83; PULSE 59–75; RESP 15–18; TEMP 36.6–36.7; O2SAT 94–100; BMI 21.2; BMI 21.4
--- NOTE | 2022-04-26 11:06 | DI.RAD.S_ITS ---
PROCEDURE: XR CHEST 1V INDICATIONS: chest pain TECHNIQUE: One view of the chest was acquired. COMPARISON: Outside Facility, RG, XR CXR 1V, 08/02/2014, 13:01. [facility], CR, CHEST 2 VIEW, 12/17/2006, 10:47. [facility], CT, CT CHEST WO CON, 04/14/2022, 14:01. [facility], CR, XR CHEST 1V, 04/14/2022, 10:01. [facility], CR, XR CHEST 1V, 04/13/2022, 16:24. FINDINGS: Surgical changes and devices: None. Lungs and pleura: Right lung volume loss. Patchy airspace opacity in the right lung. Left upper lobe pulmonary nodule is seen dating back to at least 2014. Trace right pleural effusion is suspected. No left pleural effusion. No pneumothorax. Mediastinum: Mediastinal contours appear similar. Heart size is normal. Bones and chest wall: No suspicious bony lesions. Overlying soft tissues appear unremarkable. IMPRESSION: Right upper lobe airspace opacity appears slightly improved. Recommend follow-up to resolution. Left pulmonary nodule is seen dating back to 2014 suggesting a benign etiology. Dictated by: Jordin Palomo M.D. on 04/26/2022 at 11:08 Approved by: Jordin Palomo M.D. on 04/26/2022 at 11:12
--- NOTE | 2022-04-26 13:12 | ED.GENADULT ---
HPI - General Adult General Chief complaint: Syncope Stated complaint: collapsed legs gave out released from hosp thursday Time Seen by Provider: 04/26/22 12:53 Source: patient Mode of arrival: Wheelchair History of Present Illness HPI narrative: 82-year-old female nonsmoker with history of hypertension, hyperlipidemia, AFib on anticoagulation, and recent hospitalization for UTI and pneumonia with sepsis presents with a chief complaint of her legs being generally weak and giving out on her earlier today. She was in the hospital to get antibiotic infusion and her INR rechecked. She has felt weak and dizzy, she denies SOB, chest pain. She denies N/V but has had some diarrhea. She denies any abdominal pain or constipation. Related Data Home Medications Medication Instructions Recorded Confirmed atorvastatin 40 mg tablet 40 mg PO QPM 12/01/17 04/14/22 multivitamin 1 cap PO DAILY 12/01/17 04/14/22 levothyroxine 50 mcg tablet 1 tab PO DAILY 01/27/18 04/14/22 gabapentin 300 mg capsule 900 mg PO BEDTIME 01/11/19 04/14/22 metoprolol tartrate 25 mg tablet 50 mg PO TID 01/11/19 04/14/22 warfarin 3 mg tablet 3 mg PO BEDTIME 01/30/20 04/14/22 cyanocobalamin (vitamin B-12) 1,000 mcg PO DAILY 04/09/22 04/14/22 1,000 mcg tablet diltiazem HCl 120 mg tablet 120 mg PO BEDTIME 04/09/22 04/14/22 hydralazine 25 mg tablet 25 mg PO TID 04/09/22 04/14/22 calcium 600 mg capsule 600 mg PO DAILY 04/14/22 04/14/22 cholecalciferol (vitamin D3) 25 25 mcg PO DAILY 04/14/22 04/14/22 mcg (1,000 unit) tablet (Vitamin D3) magnesium 250 mg tablet 250 mg PO BEDTIME 04/14/22 04/14/22 Allergies Allergy/AdvReac Type Severity Reaction Status Date / Time No Known Allergies Allergy Verified 04/26/22 11:03 Review of Systems Review of Systems Narrative: GENERAL: Denies chills, fatigue, malaise, fever, sweats. HEENT: Denies sinus pain, ear pain, sore throat, difficulty swallowing, dizziness. RESPIRATORY: Denies dyspnea, cough, wheezing, hemoptysis, sputum. CARDIOVASCULAR: Denies chest pain, palpitations, orthopnea, edema, GASTROINTESTINAL: Denies nausea, vomiting, abdominal pain, diarrhea, constipation, melena. : Denies dysuria, frequency, incontinence, hematuria, urinary retention. MUSCULOSKELETAL: see HPI SKIN: Denies rash, skin lesions, or other NEUROLOGIC: See HPI PSYCHIATRIC: No concerning psychosocial issues. 12 point review of systems is negative except for those stated above Patient History Medical History (Updated 04/26/22 @ 14:09 by Jose David Diaz DO) Atrial fibrillation Bladder cancer Surgical History H/O total cystectomy (03/2014) Status post total abdominal hysterectomy and bilateral salpingo-oophorectomy (ANGELA-BSO) (03/2014) Social History household members: spouse Smoking Status: Former smoker alcohol intake: current Smoking Status: Former smoker alcohol intake frequency: holidays/special occasions only Substance Use Type: does not use Exam Narrative Exam Narrative: GENERAL: [82] year old patient appears stated age. Well-developed patient, in mild distress. HEAD: Atraumatic. Normocephalic. EYES: Pupils equal round and reactive. Extraocular motions intact. No scleral icterus. No injection or drainage. ENT: Dry mucous membranes Nose without bleeding, purulent drainage. Throat without erythema, tonsillar hypertrophy or exudate. Airway patent. NECK: Trachea midline. Non tender CARDIOVASCULAR: Regular rate and rhythm without murmurs, gallops, or rubs. RESPIRATORY: Clear to auscultation. Breath sounds equal bilaterally. No wheezes, rales, or rhonchi. GASTROINTESTINAL: Abdomen soft, non-tender, nondistended. EXTREMITIES: No edema or joint tenderness. BACK: Nontender without deformity or crepitance. No flank tenderness. NEURO: AOx3. Cranial nerves 2-12 grossly intact SKIN: Poor skin turgor No rash or erythema of visible areas Initial Vital Signs Initial Vital Signs: Vital Signs Temperature 97.8 F 04/26/22 11:03 Pulse Rate 59 L 04/26/22 11:03 Respiratory Rate 15 04/26/22 11:03 Blood Pressure 152/63 H 04/26/22 11:03 Pulse Oximetry 99 10/29/22 11:03 Oxygen Delivery Method 04/26/22 11:03 Course Orders Ordered: ED Orders 04/26/22 11:06 XR chest 1V Stat 04/26/22 11:15 EKG-12 Lead Stat 04/26/22 12:50 Complete Blood Count AUTO DIFF Stat Comprehensive Metabolic Panel Stat Lipase Stat Magnesium Stat Partial Thromboplastin Time Stat Prothrombin Time INR Stat Troponin & CK Cardiac Panel Stat Discontinued Medications Sodium Chloride (Normal Saline 0.9%) 1,000 mls @ 1,000 mls/hr IV BOLUS ONE Stop: 04/26/22 14:16 Last Infusion: 04/26/22 16:16 Dose: 0 mls/hr Documented By: Admin: 04/26/22 13:43 Dose: 1,000 mls/hr Documented By: NR Ertapenem 0.5 gm/ Sodium (Chloride) 100 mls @ 200 mls/hr IV NOW ONE Stop: 04/26/22 14:14 Last Infusion: 04/26/22 14:28 Dose: 0 mls/hr Documented By: Admin: 04/26/22 13:42 Dose: 200 mls/hr Documented By: NR Vital Signs Vital signs: Vital Signs - 8 hr 04/26/22 11:03 04/26/22 13:32 04/26/22 13:33 Temperature 97.8 F Pulse Rate 59 L 66 Respiratory Rate 15 Blood Pressure 152/63 H 163/71 H Pulse Oximetry 99 98 Oxygen Delivery Method Room Air 04/26/22 13:33 04/26/22 14:00 04/26/22 14:01 Temperature Pulse Rate 66 65 Respiratory Rate Blood Pressure 160/69 H Pulse Oximetry 100 98 Oxygen Delivery Method 04/26/22 14:01 Temperature Pulse Rate 66 Respiratory Rate Blood Pressure Pulse Oximetry 100 Oxygen Delivery Method Medical Decision Making Lab Data Result diagrams: 04/26/22 12:50 04/26/22 12:50 Labs: Lab Results 04/26/22 04/26/22 04/26/22 Range/Units 12:50 12:50 12:50 WBC 8.0 (4.5-11.0) X10^3/uL RBC 3.17 L (4.0-5.2) X10^6/uL Hgb 8.9 L (12.0-16.0) g/dL Hct 26.4 L (36-46) % MCV 83.2 (80-100) fL MCH 28.0 (26-34) PG MCHC 33.7 (30-36) % RDW 17.9 H (11.6-14.8) % Plt Count 380 (150-400) X10^3/uL Neut % (Auto) 85.3 H (50-75) % Lymph % (Auto) 8.0 L (25-40) % [place] % (Auto) 6.2 (3-14) % Eos % (Auto) 0.0 L (2-4) % Baso % (Auto) 0.5 (0-2) % Neut # (Auto) 6800 (0744-2077) /uL Lymph # (Auto) 600 L (6850-7347) /uL [place] # (Auto) 500 (0-900) /uL Eos # (Auto) 0 (0-450) /uL Baso # (Auto) 0 (0-100) /uL PT 28.4 H (10.1-12.7) SECONDS INR 2.5 H (0.9-1.3) APTT 40 H (26-36) SECONDS Sodium 121 L (137-145) mmol/L Potassium 5.5 H D (3.4-5.1) mmol/L Chloride 91 L (98-107) mmol/L Carbon Dioxide 18 L (22-32) mmol/L BUN 87 H (7-17) mg/dL Creatinine 4.49 H (0.52-1.04) mg/dL Estimated GFR 9 L (>60) mL/min BUN/Creatinine Ratio 19.4 (6-22) Glucose 101 (80-110) mg/dL Calcium 9.6 (8.4-10.2) mg/dL Magnesium 2.5 H (1.6-2.3) mg/dL Total Bilirubin 0.4 (0.2-1.3) mg/dL AST 31 (14-36) IU/L ALT 60 H (<35) IU/L Alkaline Phosphatase 91 (38-126) U/L Total Creatine Kinase 32 (30-135) U/L CK-MB (CK-2) TNP CK-MB (CK-2) Rel Index TNP Troponin I 0.018 (0.01-0.034) ng/mL Total Protein 7.7 (6.3-8.2) g/dL Albumin 3.9 (3.5-5.0) g/dL Globulin 3.8 (1.7-4.1) g/dL Albumin/Globulin Ratio 1.0 (1.0-2.8) Lipase 540 H (23-300) U/L Imaging Data Renal US: Radiologist's Impression: Barbara Wheat??82??F??1940 ? Allergy/Adv: No Known Allergies Close Abdomen/Pelvis CT (Signed) Call,Jordin - 04/26/22 Renal Ultrasound (Signed) Call,Jordin - 04/26/22 Chest X-Ray (Signed) Call, - 04/26/22 Abdomen/Pelvis CT (Signed) Roel Kendall - 04/21/22 Echocardiogram Ultrasound (Signed) Destiny Jha - 04/16/[address] (Signed) Awa Pierce - 04/14/22 EKG Rpt. 04/14/22 Chest X-Ray (Signed) Jevon Joshua - 04/14/[address] (Signed) Alonos Villegas - 04/13/22 Chest X-Ray (Signed) Alonso Villegas - 04/13/[address] (Signed) Alonso Villegas - 04/13/22 Mammogram Screening (Signed) Call,Jordin - 12/17/21 Echocardiogram Ultrasound (Signed) Lisa Lakhani - 01/04/21 Carotid Doppler Study (Signed) Brittney Purcell - 01/04/21 Bone Densitometry 12/07/18 Echocardiogram Ultrasound (Signed) Lisa Lakhani - 04/09/[address] (Signed) Zoie Daniel - 01/27/[address] [address] Ultrasound Report Signed Patient: Barbara Wheat MR#: [id number] : 1940 Acct:[id number] Age/Sex: 82 / F Date of Service: 04/26/22 Loc: 90A-1 Accession Number: [id number] ?? Procedure: US renal complete Ordering Provider: Jose David Diaz D.O. PROCEDURE:? US RENAL COMPLETE ? INDICATIONS:? ACUTE KIDNEY INJURY. KNOWN STONES. ? TECHNIQUE:? Real-time scanning was performed of the kidneys and bladder, with image documentation.? ? COMPARISON:? [facility], , RENAL COMPLETE, 02/25/2017, 14:44. ? FINDINGS:? Limited exam due to bowel gas. ? Kidneys:? Kidneys are normal in size.? Right kidney measures 7.4 cm long; left kidney measures 8.7 cm long.? Right renal cortical thickness is 1.2 cm; left renal cortical thickness is 1.2 cm.? Renal cortical echotexture is increased.? No suspicious solid mass lesions.? Mild right hydronephrosis.? Mild left pelviectasis.? Small anechoic cysts bilaterally.? A small echogenic foci in both kidneys.? Difficult to exclude small stones. ? ? Bladder:? Surgically absent. ? IMPRESSION:? 1. Mild right hydronephrosis.? Mild left pelviectasis. ? 2. Kidneys are atrophic.? Increased echogenicity suggesting medical renal disease. ? ? Dictated by: Jordin Palomo M.D. on 04/26/2022 at 16:28 ? ? Approved by: Jordin Palomo M.D. on 04/26/2022 at 16:32 ? CT scan - abdomen/pelvis: Radiologist's Impression: [place] [address] CT Scan Report Signed Patient: Barbara Wheat MR#: [id number] : 1940 Acct:[id number] Age/Sex: 82 / F Date of Service: 04/26/22 Loc: 90A-1 Accession Number: [id number] ?? Procedure: CT kidney ureter bladder (KUB) Ordering Provider: Jose David Diaz D.O. PROCEDURE:? CT KIDNEY URETER BLADDER (KUB) ? INDICATIONS:? acute kidney injury, history of stones ? TECHNIQUE:? Axial sections were acquired from the lung bases to the pubic symphysis.? Coronal and sagittal reformats were performed.? For radiation dose reduction, the following was used: ?automated exposure control, adjustment of mA and/or kV according to patient size.? ? COMPARISON:? Outside Facility, , CT THORAX W/O CONTRAST, 08/09/2014, 10:58.? [facility], CT, KIDNEY/ URETER/BLADDER, 02/23/2015, 9:10.? [facility], CT, CT KIDNEY URETER BLADDER (KUB), 04/21/2022, 9:21. ? FINDINGS:? Image quality:? Excellent.? ? Lung bases:? Left major fissure pulmonary nodule measuring 1.9 cm, (3/), partially visualized.? Previously 2.6 cm in 2015 suggesting a benign etiology.? A few additional pulmonary nodules measuring less than 0.4 cm are also unchanged.? There is peripheral reticular thickening. Heart:? Three-vessel coronary artery calcifications.? Prominent heart size.? Mitral calcifications. ? URINARY: Right Kidney:? Mild pelviectasis.? The right kidney stone at the inferior pole seen on CT 04/21/2022 is no longer present. Right Ureter:? Mild hydroureter, unchanged.? ? Left Kidney: ? No stones or hydronephrosis.? Small low-density cysts are unchanged. Left Ureter:? Mild hydroureter.? ? Right lower quadrant ureterostomy.? No stone. ? Bladder:? Absent. ? ABDOMEN: Liver:? Unremarkable.? ? Gallbladder:? Unremarkable.? ? Biliary ducts:? Unremarkable.? ? Pancreas:? Unremarkable.? ? Spleen:? Unremarkable.? ? Adrenal Glands:? Unremarkable.? ? ? Stomach and Bowel:? Stomach, small bowel loops, and colon are unremarkable.? Diverticulosis. Peritoneum:? No abnormal intraperitoneal fluid.? No free air.? ? Ventral Wall: ? Right lower quadrant peristomal hernia containing colon.? Small supraumbilical fat containing hernia. Abdominal Nodes:? No enlarged retroperitoneal or mesenteric lymph nodes.? Vessels:? Aorta and inferior vena cava are normal in size.? Dense calcified plaque.? ? PELVIS: Pelvic Organs:? Uterus is absent.? ? Pelvic Nodes:? No enlarged nodes seen.? External iliac and pelvic sidewall clips. Miscellaneous: No inguinal hernias are seen. ? ? ? Bones:? No suspicious lesion.? Vertebroplasty at T9. ? IMPRESSION:? 1. The previously seen right kidney stone is no longer present and has presumably passed. ? 2. No additional kidney stones. ? 3. Mild bilateral hydroureter and pelviectasis is similar. ? 4. Right lower quadrant ureterostomy.? Similar peristomal hernia containing colon.? ? 5. Diverticulosis.? No free fluid. ? ? ? Dictated by: Jordin Palomo M.D. on 04/26/2022 at 15:46 ? ? Approved by: Jordin Palomo M.D. on 04/26/2022 at 15:58 ? MDM Narrative Medical decision making narrative: Patient is dizzy, weak and lightheaded with significantly decreased sodium level now at 121. She is clinically dry with dry mucous membranes and poor skin turgor and she is had a bump in her renal function. She has no pain and no fever. She does have a history of kidney stones therefore renal ultrasound was ordered to rule out obstructive uropathy, the findings were reassuring but inconclusive hence the decision to order CT KUB which shows no obstructive uropathy. Patient has a slightly increased potassium but no EKG changes, will closely follow with fluid administration. Patient requires hospitalization for ongoing management, stabilization and treatment Discharge Plan Departure Patient Disposition: Admitted as Observation Clinical Impression: Acute dehydration, Acute kidney injury, Acute hyponatremia Admit Date/Time: 04/26/22 14:11 Admit Provider: Nathaniel Savage
[2022-04-26 13:21] LABS: Add Manual Diff / Slide Review NO; Basophils Absolute Auto 0 /uL (0-100); Basophils Percent Auto 0.5 % (0-2); Eosinophils Absolute Auto 0 /uL (0-450); Hematocrit 26.4 % (36-46); Hemoglobin 8.9 g/dL (12.0-16.0); Lymphocytes Absolute Auto 600 /uL (1100-4500); Mean Corpuscular HGB Conc 33.7 % (30-36); Mean Corpuscular Volume 83.2 fL (80-100); Monocytes Absolute Auto 500 /uL (0-900); Monocytes Percent Auto 6.2 % (3-14); Neutrophils Absolute Auto 6800 /uL (1500-7000); Neutrophils Percent Auto 85.3 % (50-75); Platelet Count 380 X10^3/uL (150-400); Red Blood Cell Count 3.17 X10^6/uL (4.0-5.2); Red Cell Distribution Width 17.9 % (11.6-14.8)
--- NOTE | 2022-04-26 13:24 | PC.NURSE ---
was standing behind patient as she was getting ready in the bathroom when her legs gave out on her. caught patient and helped her to the floor. she states she did not feel any dizzy or light headedness. no other symptoms. pt is currently on a 6 day infusion schedule for iv antibiotics, and is one 2nd of 4 doses for anemia, had shot yesterday.
[2022-04-26 13:31] LABS: INR 2.5 (0.9-1.3); Prothrombin Time 28.4 SECONDS (10.1-12.7)
[2022-04-26 13:34] LABS: PTT Partial Thromboplastin Tim 40 SECONDS (26-36)
[2022-04-26 13:40] LABS: Alanine Aminotransferase 60 IU/L (<35); Albumin 3.9 g/dL (3.5-5.0); Alkaline Phosphatase 91 U/L (38-126); Aspartate Aminotransferase 31 IU/L (14-36); BUN Creatinine Ratio 19.4 (6-22); Bilirubin Total 0.4 mg/dL (0.2-1.3); Blood Urea Nitrogen 87 mg/dL (7-17); Calcium 9.6 mg/dL (8.4-10.2); Carbon Dioxide 18 mmol/L (22-32); Chloride 91 mmol/L (98-107); Creatine Kinase 32 U/L (30-135); Estimated Glomerular Filt Rate 9 mL/min (>60); Globulin 3.8 g/dL (1.7-4.1); Glucose 101 mg/dL (80-110); HEMOLYSIS < 15 (0-50); Lipase 540 U/L (23-300); Magnesium 2.5 mg/dL (1.6-2.3); Sodium 121 mmol/L (137-145); Total Protein 7.7 g/dL (6.3-8.2)
[2022-04-26] MEDS: ERTAPENEM 0.5 GM in SODIUM CHLORIDE 0.9% 100 ML IV (13:42)
[2022-04-26] MEDS: SODIUM CHLORIDE 0.9% 1,000 ML 1000 ML IV (13:43)
[2022-04-26 13:53] LABS: Potassium 5.5 mmol/L (3.4-5.1)
[2022-04-26 14:02] LABS: Troponin I 0.018 ng/mL (0.01-0.034)
--- NOTE | 2022-04-26 14:20 | DI.US.S_ITS ---
PROCEDURE: US RENAL COMPLETE INDICATIONS: ACUTE KIDNEY INJURY. KNOWN STONES. TECHNIQUE: Real-time scanning was performed of the kidneys and bladder, with image documentation. COMPARISON: [facility], US, RENAL COMPLETE, 02/25/2017, 14:44. FINDINGS: Limited exam due to bowel gas. Kidneys: Kidneys are normal in size. Right kidney measures 7.4 cm long; left kidney measures 8.7 cm long. Right renal cortical thickness is 1.2 cm; left renal cortical thickness is 1.2 cm. Renal cortical echotexture is increased. No suspicious solid mass lesions. Mild right hydronephrosis. Mild left pelviectasis. Small anechoic cysts bilaterally. A small echogenic foci in both kidneys. Difficult to exclude small stones. Bladder: Surgically absent. IMPRESSION: 1. Mild right hydronephrosis. Mild left pelviectasis. 2. Kidneys are atrophic. Increased echogenicity suggesting medical renal disease. Dictated by: Jordin Palomo M.D. on 04/26/2022 at 16:28 Approved by: Jordin Palomo M.D. on 04/26/2022 at 16:32
--- NOTE | 2022-04-26 14:58 | PC.NURSE ---
patient gave sample of urine from her nephrostomy bag. called and informed lab of where the sample came from.
--- NOTE | 2022-04-26 16:12 | DI.CT.S_ITS ---
PROCEDURE: CT KIDNEY URETER BLADDER (KUB) INDICATIONS: acute kidney injury, history of stones TECHNIQUE: Axial sections were acquired from the lung bases to the pubic symphysis. Coronal and sagittal reformats were performed. For radiation dose reduction, the following was used: automated exposure control, adjustment of mA and/or kV according to patient size. COMPARISON: Outside Facility, , CT THORAX W/O CONTRAST, 08/09/2014, 10:58. [facility], CT, KIDNEY/ URETER/BLADDER, 02/23/2015, 9:10. [facility], CT, CT KIDNEY URETER BLADDER (KUB), 04/21/2022, 9:21. FINDINGS: Image quality: Excellent. Lung bases: Left major fissure pulmonary nodule measuring 1.9 cm, (3/1), partially visualized. Previously 2.6 cm in 2014 suggesting a benign etiology. A few additional pulmonary nodules measuring less than 0.4 cm are also unchanged. There is peripheral reticular thickening. Heart: Three-vessel coronary artery calcifications. Prominent heart size. Mitral calcifications. URINARY: Right Kidney: Mild pelviectasis. The right kidney stone at the inferior pole seen on CT 04/21/2022 is no longer present. Right Ureter: Mild hydroureter, unchanged. Left Kidney: No stones or hydronephrosis. Small low-density cysts are unchanged. Left Ureter: Mild hydroureter. Right lower quadrant ureterostomy. No stone. Bladder: Absent. ABDOMEN: Liver: Unremarkable. Gallbladder: Unremarkable. Biliary ducts: Unremarkable. Pancreas: Unremarkable. Spleen: Unremarkable. Adrenal Glands: Unremarkable. Stomach and Bowel: Stomach, small bowel loops, and colon are unremarkable. Diverticulosis. Peritoneum: No abnormal intraperitoneal fluid. No free air. Ventral Wall: Right lower quadrant peristomal hernia containing colon. Small supraumbilical fat containing hernia. Abdominal Nodes: No enlarged retroperitoneal or mesenteric lymph nodes. Vessels: Aorta and inferior vena cava are normal in size. Dense calcified plaque. PELVIS: Pelvic Organs: Uterus is absent. Pelvic Nodes: No enlarged nodes seen. External iliac and pelvic sidewall clips. Miscellaneous: No inguinal hernias are seen. Bones: No suspicious lesion. Vertebroplasty at T9. IMPRESSION: 1. The previously seen right kidney stone is no longer present and has presumably passed. 2. No additional kidney stones. 3. Mild bilateral hydroureter and pelviectasis is similar. 4. Right lower quadrant ureterostomy. Similar peristomal hernia containing colon. 5. Diverticulosis. No free fluid. Dictated by: Jordin Palomo M.D. on 04/26/2022 at 15:46 Approved by: Jordin Palomo M.D. on 04/26/2022 at 15:58
--- NOTE | 2022-04-26 16:21 | PC.NURSE ---
states patient did not eat food this morning and did not take her morning medications. this includes metoprolol and hctz
[2022-04-26 16:35] LABS: Appearance Urine UA CLEAR; Bilirubin Urine UA NEGATIVE (NEGATIVE); Color Urine UA YELLOW; Glucose Urine UA NEGATIVE (Negative); Ketones Urine UA NEGATIVE (NEGATIVE); Leukocyte Esterase Urine UA NEGATIVE (NEGATIVE); Nitrite Urine UA NEGATIVE (Negative); Occult Blood Urine UA TRACE-LYSED (Negative); Protein Urine UA TRACE (Negative); Specific Gravity Urine UA <=1.005 (1.000-1.035); Urobilinogen Urine UA 0.2 E.U./dL (0.2)
[2022-04-26 16:38] LABS: pH Urine UA 6.5 (4.5-8.0)
[2022-04-26 17:18] LABS: Creatinine Urine Random 31.6 mg/dL; Sodium Urine Random 29 mmol/L (30-90)
[2022-04-26 17:32] LABS: Amorphous Sediment Urine 1+; Bacteria Urine None Seen; Culture Indicated Urine Cult Not Indicated; RBC Urine 0-1/HPF (0-5/HPF); WBC Urine 0-1/HPF (0-5/HPF)
--- NOTE | 2022-04-26 18:19 | PM.HP.1 ---
History of Present Illness History of Present Illness Date Patient Seen: 04/26/22 Time Patient Seen: 15:00 Chief complaint: collapsed legs gave out released from hosp thursday Narrative: Ms. Wheat is a 82W with PMH afib, breast cancer, bladder cancer s/p cystectomy with urostomy with surgery in 2013 and no recurrence of cancer who presents after collapse. She noted that her legs today were weak and suddenly gave out on her and her caught her before she hit the floor. She did not feel dizzy or lightheaded, no chest pain or shortness of breath. She does feel thirsty. She has noted having some diarrhea and a poor appetite but says she is drinking fluids. Of note she was recently admitted to the hospital for a prolonged period due to pneumonia, UTI, and sepsis and was discharged with a prolonged course of antibiotics with ertapenem and levaquin for two resistant bacteria with antibiotics planned to be finished 04/27. She has a urostomy and has not noted any changes to liquid from urostomy, she has no cough or shortness of breath. Last admission she did have noted mild hydronephrosis that appeared chronic with nonobstructing kidney stone. She has no abdominal pain. She was on diuretics last admission but these were stopped on discharged due to JENNIFER. Her baseline creatinine appears near 2.8, with discharge creatinine being 3.65. In the ED workup was done, vitals notable for temp 97.8, hr 59. Labs notable for WBC 8, hgb 8.9, plts 380. Na 121, K 5.5. Cl 91, co2 18, BUN 87, creatinine 4.49. She states she was still making good volume of urine. INR 2.5. Renal ultrasound showed hydronephrosis therefore follow up CT was ordered which showed stable hydronephrosis and no kidney stone. She was ordered for IV fluids and admitted for further treatment. Patient History Medical History Atrial fibrillation Bladder cancer Surgical History H/O total cystectomy (03/2014) Status post total abdominal hysterectomy and bilateral salpingo-oophorectomy (ANGELA-BSO) (03/2014) Family & Social History Social History: household members spouse Safety & Behavioral: Feels Safe in Current Yes Environment Been Physically Hurt or No Threatened By a Person Tobacco & Substance use: Smoking Status Former smoker alcohol intake current alcohol intake frequency holiday/special occasion Substance Use Type does not use Meds Home Medications and Allergies Home Medications Medication Instructions Recorded Confirmed Type atorvastatin 40 mg tablet 40 mg PO QPM 12/01/17 04/14/22 History multivitamin 1 cap PO DAILY 12/01/17 04/14/22 History levothyroxine 50 mcg tablet 1 tab PO DAILY 01/27/18 04/14/22 History gabapentin 300 mg capsule 900 mg PO BEDTIME 01/11/19 04/14/22 History metoprolol tartrate 25 mg tablet 50 mg PO TID 01/11/19 04/14/22 History warfarin 3 mg tablet 3 mg PO BEDTIME 01/30/20 04/14/22 History cyanocobalamin (vitamin B-12) 1,000 mcg PO DAILY 04/09/22 04/14/22 History 1,000 mcg tablet diltiazem HCl 120 mg tablet 120 mg PO BEDTIME 04/09/22 04/14/22 History hydralazine 25 mg tablet 25 mg PO TID 04/09/22 04/14/22 History calcium 600 mg capsule 600 mg PO DAILY 04/14/22 04/14/22 History cholecalciferol (vitamin D3) 25 25 mcg PO DAILY 04/14/22 04/14/22 History mcg (1,000 unit) tablet (Vitamin D3) magnesium 250 mg tablet 250 mg PO BEDTIME 04/14/22 04/14/22 History Allergies Allergy/AdvReac Type Severity Reaction Status Date / Time No Known Allergies Allergy Verified 04/26/22 11:03 Review of Systems Review of Systems Narrative: 14 systems reviewed and negative aside from what is noted on HPI Exam Vital Signs (past 8 hours): - 04/26/22 11:03 04/26/22 13:32 04/26/22 13:33 Temperature 97.8 F Pulse Rate 59 L 66 Respiratory Rate 15 Blood Pressure 152/63 H 163/71 H Pulse Oximetry 99 98 Oxygen Delivery Method Room Air 04/26/22 13:33 04/26/22 14:00 04/26/22 14:01 Temperature Pulse Rate 66 65 Respiratory Rate Blood Pressure 160/69 H Pulse Oximetry 100 98 Oxygen Delivery Method 04/26/22 14:01 04/26/22 14:30 04/26/22 14:31 Temperature Pulse Rate 66 69 Respiratory Rate Blood Pressure 166/67 H Pulse Oximetry 100 98 Oxygen Delivery Method 04/26/22 14:31 04/26/22 15:00 04/26/22 15:01 Temperature Pulse Rate 69 69 Respiratory Rate Blood Pressure 179/71 H Pulse Oximetry 98 98 Oxygen Delivery Method 04/26/22 15:01 04/26/22 15:30 04/26/22 15:31 Temperature Pulse Rate 72 71 Respiratory Rate Blood Pressure 153/83 H Pulse Oximetry 97 97 Oxygen Delivery Method 04/26/22 15:31 04/26/22 16:00 04/26/22 16:01 Temperature Pulse Rate 71 75 Respiratory Rate Blood Pressure 146/67 H Pulse Oximetry 97 98 Oxygen Delivery Method 04/26/22 16:01 04/26/22 16:31 04/26/22 17:00 Temperature Pulse Rate 72 71 70 Respiratory Rate Blood Pressure Pulse Oximetry 99 95 97 Oxygen Delivery Method 04/26/22 17:30 Temperature Pulse Rate 74 Respiratory Rate Blood Pressure Pulse Oximetry 99 Oxygen Delivery Method Oxygen Delivery Method Room Air Narrative Exam Narrative: GEN: fatigued but no acute distress HEENT: dry mucous membranes, PERRL NECK: trachea midline, no JVD PULM: coarse breath sounds bilaterally CV: irregular, tachycardic ABD: soft, nontender, ostomy draining dark brownish liquid EXT: warm and well perfused with no edema NEURO: awake, alert, oriented, no focal deficits Objective Labs Result Diagrams: 04/26/22 12:50 04/26/22 12:50 Labs: Laboratory Results - last 24 hr 04/26/22 04/26/22 04/26/22 12:50 12:50 12:50 WBC 8.0 RBC 3.17 L Hgb 8.9 L Hct 26.4 L MCV 83.2 MCH 28.0 MCHC 33.7 RDW 17.9 H Plt Count 380 Neut % (Auto) 85.3 H Lymph % (Auto) 8.0 L [place] % (Auto) 6.2 Eos % (Auto) 0.0 L Baso % (Auto) 0.5 Neut # (Auto) 6800 Lymph # (Auto) 600 L [place] # (Auto) 500 Eos # (Auto) 0 Baso # (Auto) 0 PT 28.4 H INR 2.5 H APTT 40 H Sodium 121 L Potassium 5.5 H D Chloride 91 L Carbon Dioxide 18 L BUN 87 H Creatinine 4.49 H Estimated GFR 9 L BUN/Creatinine Ratio 19.4 Glucose 101 Calcium 9.6 Magnesium 2.5 H Total Bilirubin 0.4 AST 31 ALT 60 H Alkaline Phosphatase 91 Total Creatine Kinase 32 CK-MB (CK-2) TNP CK-MB (CK-2) Rel Index TNP Troponin I 0.018 Total Protein 7.7 Albumin 3.9 Globulin 3.8 Albumin/Globulin Ratio 1.0 Lipase 540 H Urine Color Urine Appearance Urine pH Ur Specific [place] Urine Protein Urine Glucose (UA) Urine Ketones Urine Occult Blood Urine Nitrate Urine Bilirubin Urine Urobilinogen Ur Leukocyte Esterase Urine RBC Urine WBC Amorphous Sediment Urine Bacteria Ur Culture Indicated? Ur Random Sodium Urine Creatinine 04/26/22 04/26/22 14:53 14:53 WBC RBC Hgb Hct MCV MCH MCHC RDW Plt Count Neut % (Auto) Lymph % (Auto) [place] % (Auto) Eos % (Auto) Baso % (Auto) Neut # (Auto) Lymph # (Auto) [place] # (Auto) Eos # (Auto) Baso # (Auto) PT INR APTT Sodium Potassium Chloride Carbon Dioxide BUN Creatinine Estimated GFR BUN/Creatinine Ratio Glucose Calcium Magnesium Total Bilirubin AST ALT Alkaline Phosphatase Total Creatine Kinase CK-MB (CK-2) CK-MB (CK-2) Rel Index Troponin I Total Protein Albumin Globulin Albumin/Globulin Ratio Lipase Urine Color Yellow Urine Appearance Clear Urine pH 6.5 Ur Specific [place] <=1.005 Urine Protein Trace H Urine Glucose (UA) Negative Urine Ketones Negative Urine Occult Blood Trace-lysed Urine Nitrate Negative Urine Bilirubin Negative Urine Urobilinogen 0.2 Ur Leukocyte Esterase Negative Urine RBC 0-1/hpf Urine WBC 0-1/hpf Amorphous Sediment 1+ Urine Bacteria None seen Ur Culture Indicated? Cult not indicated Ur Random Sodium 29 L Urine Creatinine 31.6 Assessment & Plan Assessment & Plan narrative: 1. Acute hyponatremia -patient appears hypovolemic on exam -ordered for urine lytes with osms, and urine na, creatinine, will be careful with interpretation as they are from urostomy -given IV fluids due to hypovolemia -currently no encephalopathy or neurologic changes, no indication for 3% at this time -suspect etiology is from diarrhea and poor oral intake, but possibility of SIADH remains 2. JENNIFER on CKD stage 4 with mild hyperkalemia -patient has baseline creatinine of 2.8, on dc was 3.65 -on admission now is 4.5 -ordered for urine lytes as above -did get IV fluids in ED, will repeat BMP stat and continue IVF if improving, if potassium remains high will order dextrose, insulin, calcium as indicated -suspect etiology may be multifactorial from recent jennifer due to diuresis, diarrhea and poor oral intake at home, and possibly from levaquin as well -monitor urine output closely -no indication for dialysis currently but if not improving may need to be transferred 3. Hypothyroid -continue synthroid 4. Atrial fibrillation, chronic -continue diltiazem, metoprolol, coumadin -check INR daily Patient is expected to be admitted for 2 midnights due to severity of hyponatremia and significant kidney dysfunction. Her overall trajectory will need to be monitored closely as she may need to have dialysis in the urgent future if her renal function and hyperkalemia become difficult to treat. CODE: Full Proxy: Bryan Wheat, I have utilized all available resources to reconcile the patient's home medications Time Spent With Patient Critical Care time: I spent a total of [] minutes of critical care time on this patient's care today; this time is exclusive of procedural time. Quality MIPS - Admit I confirm the patient?s Advance Care Plan is present, Code status is documented, Surrogate decision maker is in patient?s record [If Yes, STOP here]: Yes
--- NOTE | 2022-04-26 18:25 | PC.NURSE ---
Day shift: Pt in room from ED at approx 1825. She is very weak. 2 ppl assist from stretcher to bed. Hospital gown being placed on Pt now. Spouse in room for support. Spouse states Pt has had nothing to eat all day. Renal diet per Dr Collins. High fall risk at this time. Per ED RN the PICC line works but not able to draw blood. Oriented to room and call light. Pt agrees to not get OOB without help from staff. Call light in reach and bed alarm is on.
[2022-04-26 19:05] LABS: BUN Creatinine Ratio 20.7 (6-22); Blood Urea Nitrogen 81 mg/dL (7-17); Calcium 8.7 mg/dL (8.4-10.2); Carbon Dioxide 16 mmol/L (22-32); Chloride 98 mmol/L (98-107); Estimated Glomerular Filt Rate 11 mL/min (>60); Glucose 87 mg/dL (80-110); HEMOLYSIS < 15 (0-50); Potassium 5.2 mmol/L (3.4-5.1); Sodium 125 mmol/L (137-145)
--- NOTE | 2022-04-26 19:13 | PC.NURSE ---
Day shift: Pt Midline removed at this time and sent to lab for culture per MD orders. LUE site does show s/s of infection. Pt tolerated removal well.
[2022-04-26] MEDS: SODIUM CHLORIDE 0.9% 1,000 ML 84 ML IV (19:21)
[2022-04-26] MEDS: PIPERACILLIN/TAZO 2.25 GM in SODIUM CHLORIDE 0.9% 100 ML IV (19:27)
[2022-04-26] MEDS: METOPROLOL IR 25 MG TABLET 50 MG PO (20:27)
[2022-04-26] MEDS: dilTIAZem CD 120 MG CAP PO (20:27)
[2022-04-27] VITALS (13 sets, daily range): BP systolic 110–164; BP diastolic 42–75; PULSE 50–77; RESP 15–18; TEMP 36.1–36.6; O2SAT 94–100
[2022-04-27] MEDS: PIPERACILLIN/TAZO 2.25 GM in SODIUM CHLORIDE 0.9% 100 ML IV (02:22)
--- NOTE | 2022-04-27 04:53 | PC.NURSE ---
Pt is AxOx4 slightly forgetful and cooperative. VSS, pt denies pain. Tele shows A-fib without PVCs. Pt has urostomy and it is draining clear and yellow urine output. Pt came with L Mid line which was suspected infective so day shift RN removed it. Pt has now R AC peripheral IV which is running NS 84 ml/hr concurrently with Zosyn 2.25g IV. Pt's lungs on posterior baseline has crackles but pt is on RA and sats fine. No other changes. Continue montior.
[2022-04-27 05:31] LABS: INR 2.6 (0.9-1.3); Prothrombin Time 30.5 SECONDS (10.1-12.7)
[2022-04-27] MEDS: SODIUM CHLORIDE 0.9% 1,000 ML 84 ML IV (06:54)
[2022-04-27] MEDS: LEVOTHYROXINE 50 MCG TABLET PO (08:12)
[2022-04-27] MEDS: METOPROLOL IR 25 MG TABLET 50 MG PO (08:12)
[2022-04-27 09:23] LABS: Hematocrit 23.4 % (36-46); Hemoglobin 7.9 g/dL (12.0-16.0); Mean Corpuscular HGB Conc 33.6 % (30-36); Mean Corpuscular Hemoglobin 28.2 PG (26-34); Platelet Count 332 X10^3/uL (150-400); Red Blood Cell Count 2.79 X10^6/uL (4.0-5.2); Red Cell Distribution Width 17.5 % (11.6-14.8); White Blood Cell Count 6.6 X10^3/uL (4.5-11.0)
[2022-04-27 09:33] LABS: BUN Creatinine Ratio 22.1 (6-22); Blood Urea Nitrogen 77 mg/dL (7-17); Calcium 8.4 mg/dL (8.4-10.2); Carbon Dioxide 17 mmol/L (22-32); Chloride 103 mmol/L (98-107); Estimated Glomerular Filt Rate 13 mL/min (>60); Glucose 86 mg/dL (80-110); HEMOLYSIS 16 (0-50); Sodium 129 mmol/L (137-145)
--- NOTE | 2022-04-27 10:20 | PM.PN.1 ---
Subjective Subjective Date Patient Seen: 04/27/22 Time Patient Seen: 08:00 Interval history: Overnight her PICC was noted to have erythema it was removed and tip cultured. Blood cultures ordered. She feels more improved this morning with more energy but still is quite deconditioned. She is having good output from the urostomy. Exam Vital Signs (past 8 hours): - 04/27/22 02:48 04/27/22 03:01 04/27/22 06:00 Temperature 96.9 F L Pulse Rate 63 Pulse Rate [Orthostatic Lying] 63 Pulse Rate [Orthostatic Sitting] 55 L Pulse Rate [Orthostatic Standing] 64 Respiratory Rate 18 Blood Pressure 110/42 L Blood Pressure [Orthostatic Lying] 110/42 L Blood Pressure [Orthostatic Sitting] 135/54 L Blood Pressure [Orthostatic Standing] 125/53 L Pulse Oximetry 95 Oxygen Delivery Method Room Air Oxygen Flow Rate 0 04/27/22 08:44 04/27/22 10:19 Temperature 97.5 F L Pulse Rate 72 Pulse Rate [Orthostatic Lying] Pulse Rate [Orthostatic Sitting] Pulse Rate [Orthostatic Standing] Respiratory Rate 16 Blood Pressure 145/62 H Blood Pressure [Orthostatic Lying] Blood Pressure [Orthostatic Sitting] Blood Pressure [Orthostatic Standing] Pulse Oximetry 96 97 Oxygen Delivery Method Room Air Oxygen Flow Rate 0 Oxygen Delivery Method Room Air Oxygen Flow Rate 0 Narrative Exam Narrative: GEN: fatigued but no acute distress HEENT: dry mucous membranes, PERRL NECK: trachea midline, no JVD PULM: clear bilaterally CV: irregular, bradycardic ABD: soft, nontender, ostomy draining dark brownish liquid EXT: warm and well perfused with no edema NEURO: awake, alert, oriented, no focal deficits Objective Labs Result Diagrams: 04/27/22 09:10 04/27/22 09:10 Labs: Laboratory Results - last 24 hr 04/26/22 04/26/22 04/26/22 12:50 12:50 12:50 WBC 8.0 RBC 3.17 L Hgb 8.9 L Hct 26.4 L MCV 83.2 MCH 28.0 MCHC 33.7 RDW 17.9 H Plt Count 380 Neut % (Auto) 85.3 H Lymph % (Auto) 8.0 L [place] % (Auto) 6.2 Eos % (Auto) 0.0 L Baso % (Auto) 0.5 Neut # (Auto) 6800 Lymph # (Auto) 600 L [place] # (Auto) 500 Eos # (Auto) 0 Baso # (Auto) 0 PT 28.4 H INR 2.5 H APTT 40 H Sodium 121 L Potassium 5.5 H D Chloride 91 L Carbon Dioxide 18 L BUN 87 H Creatinine 4.49 H Estimated GFR 9 L BUN/Creatinine Ratio 19.4 Glucose 101 Calcium 9.6 Magnesium 2.5 H Total Bilirubin 0.4 AST 31 ALT 60 H Alkaline Phosphatase 91 Total Creatine Kinase 32 CK-MB (CK-2) TNP CK-MB (CK-2) Rel Index TNP Troponin I 0.018 Total Protein 7.7 Albumin 3.9 Globulin 3.8 Albumin/Globulin Ratio 1.0 Lipase 540 H Urine Color Urine Appearance Urine pH Ur Specific [place] Urine Protein Urine Glucose (UA) Urine Ketones Urine Occult Blood Urine Nitrate Urine Bilirubin Urine Urobilinogen Ur Leukocyte Esterase Urine RBC Urine WBC Amorphous Sediment Urine Bacteria Ur Culture Indicated? Ur Random Sodium Urine Creatinine 04/26/22 04/26/22 04/26/22 14:53 14:53 18:40 WBC RBC Hgb Hct MCV MCH MCHC RDW Plt Count Neut % (Auto) Lymph % (Auto) [place] % (Auto) Eos % (Auto) Baso % (Auto) Neut # (Auto) Lymph # (Auto) [place] # (Auto) Eos # (Auto) Baso # (Auto) PT INR APTT Sodium 125 L Potassium 5.2 H Chloride 98 Carbon Dioxide 16 L BUN 81 H Creatinine 3.92 H Estimated GFR 11 L BUN/Creatinine Ratio 20.7 Glucose 87 Calcium 8.7 Magnesium Total Bilirubin AST ALT Alkaline Phosphatase Total Creatine Kinase CK-MB (CK-2) CK-MB (CK-2) Rel Index Troponin I Total Protein Albumin Globulin Albumin/Globulin Ratio Lipase Urine Color Yellow Urine Appearance Clear Urine pH 6.5 Ur Specific [place] <=1.005 Urine Protein Trace H Urine Glucose (UA) Negative Urine Ketones Negative Urine Occult Blood Trace-lysed Urine Nitrate Negative Urine Bilirubin Negative Urine Urobilinogen 0.2 Ur Leukocyte Esterase Negative Urine RBC 0-1/hpf Urine WBC 0-1/hpf Amorphous Sediment 1+ Urine Bacteria None seen Ur Culture Indicated? Cult not indicated Ur Random Sodium 29 L Urine Creatinine 31.6 10/30/22 10/30/22 10/30/22 05:04 09:10 09:10 WBC 6.6 RBC 2.79 L Hgb 7.9 L Hct 23.4 L MCV 84.0 MCH 28.2 MCHC 33.6 RDW 17.5 H Plt Count 332 Neut % (Auto) Lymph % (Auto) [place] % (Auto) Eos % (Auto) Baso % (Auto) Neut # (Auto) Lymph # (Auto) [place] # (Auto) Eos # (Auto) Baso # (Auto) PT 30.5 H INR 2.6 H APTT Sodium 129 L Potassium 5.0 Chloride 103 Carbon Dioxide 17 L BUN 77 H Creatinine 3.48 H Estimated GFR 13 L BUN/Creatinine Ratio 22.1 H Glucose 86 Calcium 8.4 Magnesium Total Bilirubin AST ALT Alkaline Phosphatase Total Creatine Kinase CK-MB (CK-2) CK-MB (CK-2) Rel Index Troponin I Total Protein Albumin Globulin Albumin/Globulin Ratio Lipase Urine Color Urine Appearance Urine pH Ur Specific [place] Urine Protein Urine Glucose (UA) Urine Ketones Urine Occult Blood Urine Nitrate Urine Bilirubin Urine Urobilinogen Ur Leukocyte Esterase Urine RBC Urine WBC Amorphous Sediment Urine Bacteria Ur Culture Indicated? Ur Random Sodium Urine Creatinine [facility] Medical History Atrial fibrillation Bladder cancer Surgical History H/O total cystectomy (03/2014) Status post total abdominal hysterectomy and bilateral salpingo-oophorectomy (ANGELA-BSO) (03/2014) Social History household members: spouse Smoking Status: Former smoker alcohol intake: current Assessment & Plan Assessment & Plan narrative: 1. Acute hyponatremia, improving -patient appears hypovolemic on exam -ordered for urine lytes with osms, and urine na, creatinine, will be careful with interpretation as they are from urostomy -given IV fluids due to hypovolemia -currently no encephalopathy or neurologic changes, no indication for 3% at this time -suspect etiology is from diarrhea and poor oral intake, but possibility of SIADH remains 2. JENNIFER on CKD stage 4 with mild hyperkalemia, improving -patient has baseline creatinine of 2.8, on dc was 3.65 -on admission is 4.5, improved to 3.48 -ordered for urine lytes as above -did get IV fluids in ED, will repeat BMP stat and continue IVF if improving, if potassium remains high will order dextrose, insulin, calcium as indicated -suspect etiology may be multifactorial from recent jennifer due to diuresis, diarrhea and poor oral intake at home, and possibly from levaquin as well -monitor urine output closely -no indication for dialysis currently but if not improving may need to be transferred 3. Hypothyroid -continue synthroid 4. Atrial fibrillation, chronic -continue diltiazem, metoprolol, coumadin -check INR daily Patient is expected to be admitted for 2 midnights due to severity of hyponatremia and significant kidney dysfunction. Her overall trajectory will need to be monitored closely as she may need to have dialysis in the urgent future if her renal function and hyperkalemia become difficult to treat. CODE: Full Proxy: Bryan Wheat, I have utilized all available resources to reconcile the patient's home medications Time Spent With Patient Critical Care time: I spent a total of [] minutes of critical care time on this patient's care today; this time is exclusive of procedural time.
--- NOTE | 2022-04-27 10:34 | PT.IIE ---
Current Diagnoses Hypo-osmolality and hyponatremia (04/26/22) Surgical History (Last Reviewed 04/26/22 @ 18:26 by Nathaniel Savage MD) H/O total cystectomy (03/2014) Status post total abdominal hysterectomy and bilateral salpingo-oophorectomy (ANGELA-BSO) (03/2014) Medical History (Last Reviewed 04/26/22 @ 18:26 by Nathaniel Savage MD) Atrial fibrillation Bladder cancer Physical Therapy Inpatient Evaluation/Re-Eval M1 PT/OT-IP Prior Functional Status Start: 04/27/22 08:45 Freq: NEEDED Status: Active Protocol: Document 04/27/22 09:57 AMB (Rec: 04/27/22 10:34 AMB [id number]) Medical Review Prior Functional Status Medical History Reviewed Yes Mobility and Gait Ambulates in the home with FWW , manual w/c for longer distances Activities of Daily Living and IADL's Pt's reports they have been doing sponge baths. Social History Household Members spouse Living Arrangements House Number of Floors (Floors) One Floor Number of Stairs To Enter/Railing? 3, bilateral rails Home Environment Standard Height Toilet Home Equipment Front Wheel Walker Employment Status Retired Additional Social History Comment Lives on [place] M2 PT-IP Current Condition Start: 04/27/22 08:45 Freq: NEEDED Status: Active Protocol: Document 04/27/22 09:57 AMB (Rec: 04/27/22 10:34 AMB [id number]) Physical Therapy Current Condition Current Condition Evaluation Date 04/27/22 Treatment Diagnosis hyponatremia/weakness/fall history Onset Date 04/26/22 M3 PT-IP Subjective Start: 04/27/22 08:45 Freq: NEEDED Status: Active Protocol: Document 04/27/22 09:57 AMB (Rec: 04/27/22 10:34 AMB [id number]) Subjective Physical Therapy Visit Type Type Initial Evaluation Visit Start Time 09:30 Visit Stop Time 10:00 Total Visit Minutes 30 Physical Therapy Visit Comments Patient Comments Barbara's is at the bedside, when asked if she would like to get out of bed, pt states We'll see Patient Goals Return home when safe Therapy Pain Assessment Pain When Pain Assessed At Rest Pain Present Pain Present Denied Pain M4 PT-IP Mobility and Gait Start: 04/27/22 08:45 Freq: NEEDED Status: Active Protocol: Document 04/27/22 09:57 AMB (Rec: 04/27/22 10:34 AMB [id number]) PT-Bed Mobility Assessment Rolling Type of Rolling Log Rolling,Roll to Right Level of Assist Standby Assistance Supine to Sit Supine to Sit Standby Assistance Sit to Supine Sit to Supine Standby Assistance Scooting Scooting to Edge of Bed Standby Assistance PT-Transfer Assessment Sit to and From Stand Sit to and from Stand Contact Guard Assistance Equipment Transfer Assistive Device Gait Belt,Front Wheeled Walker Transfers Transfer Destination Bed Transfer Technique Stand Step Pivot Transfer Ability Level of Assist Contact Guard Assistance Comments Mobility Comments Pt transfers well in bed with additional time. Needed CGA for sit to stand and stand to sit and cues for hand placement/safety. Gait Assessment Gait Gait Assistance Required: Contact Guard Assist,1 Person Assist Distance (Feet) 40 Assistive Devices Assistive Device Gait Belt,Front Wheeled Walker Gait Deviations General Gait Pattern Decreased Stride Length, Decreased Feet Clearance,Wide Based Gait Factors Limiting Gait Function Factors Limiting Gait Function Decreased Sensation,Decreased Strength,Pain,Poor Balance Comments Gait Comments Pt reports increased discomfort with walking due to peripheral neuropathy. Ambulated in hallway 40' with FWW and CGA, and became fatigued. PT-Balance Assessment Sitting Balance and Reactions Static Sitting Balance Ability Good Dynamic Sitting Balance Ability Fair Standing Balance and Reactions Static Standing Balance Ability Fair Dynamic Standing Balance Ability Poor Comments Other Balance Tests/Deviations/Treatment Pt needs both UEs on FWW for : standing balance, needed to sit down to don mask safely M5 PT-IP Objective Assessments Start: 04/27/22 08:45 Freq: NEEDED Status: Active Protocol: Document 04/27/22 09:57 AMB (Rec: 04/27/22 10:34 AMB [id number]) Orientation Orientation/Cognition Level of Alertness Alert Comments Pt's tends to answer for her Strength Comments Strength Comments B LE grossly 3/5, needs UE support to move from sit to stand M6 PT-IP Treatment Start: 04/27/22 08:45 Freq: NEEDED Status: Active Protocol: Document 04/27/22 09:57 AMB (Rec: 04/27/22 10:34 AMB [id number]) Physical Therapy Treatment Education Education Provided Safety M7 PT-IP Assessment and Plan Start: 04/27/22 08:45 Freq: NEEDED Status: Active Protocol: Document 04/27/22 09:57 AMB (Rec: 04/27/22 10:34 AMB [id number]) PT Summary Assessment and Plan Potential Rehabilitation Potential Good Status of Condition at Evaluation Evolving Summary Impairments Strength,Balance,Sensation,Bed Mobility,Gait,Activity Tolerance Assessment Summary Barbara was recently hospitalized due to UTI, sepsis and had been d/[place] home with home antibiotics. She returns to the hospital as her legs gave way while at home using her FWW. Her was able to catch her and stabilize her. She required CGA for gait, standing balance and transfers and fatigued quickly after 40'. She will need to be cleared for stairs before returning home with her and would benefit from home health once home. Goals Bed Mobility Goal Independent Transfer Goal Standby Assistance Gait Goal Standby Assistance Gait Distance 100 Other Goals 3 stairs with railing with Arlene Days to Meet Goals 5 Frequency of Treatment Frequency Of Treatment Once a Day Treatment Plan Physical Therapy Treatment Plan Bed Mobility Training,Transfer Training,Gait Training, Therapeutic Exercise,Balance Retraining Other Recommendations and Next Treatment Stair training before d/c Focus Recommendations To Nursing Amount of Assist Needed 1 Person Assist Discharge Recommendations PT Discharge Recommendations Home with 19/01 Assist Available,Home Health
[2022-04-27] MEDS: PIPERACILLIN/TAZO 3.375 GM in SODIUM CHLORIDE 0.9% 100 ML IV (13:28)
--- NOTE | 2022-04-27 15:20 | CM.DANOTE ---
DCP/Assessment: Patient is a 82yr old female admitted to [facility] with JENNIFER. PCP is Dr. Jiménez. Primary payor is 1)Medicare 2)AAR. Met with patient and spouse/Rohith explained CM team role. Spouse reports that he hopes to take patient home with hh when medically stable. Patient nods in agreement. Only agency that goes to [facility] is [facility] which patient in agreement with. Patient d/c'd to SNF last week and spouse took her out within 12hrs. Both patient and spouse in agreement that home health is a better option at time of d/c. Signed F2F attached. Per provider patient currently with cultures pending. Provider hopeful patient will not need continued IV abx. 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 P: CM team following closely. SIMON Forman Discharge Planning/Care Management Advanced directive, confirm from FAMILY Start: 04/26/22 20:22 Freq: Q24H Status: Active Protocol: Document 04/26/22 20:22 OW (Rec: 04/26/22 21:10 OW [id number]) Advance Directive, confirm on record Time 21:09 Person contacted n Copy received No CM Discharge Assessment Start: 04/27/22 15:13 Freq: Status: Active Protocol: Document 04/27/22 15:13 KJS (Rec: 04/27/22 15:20 KJS [id number]) Discharge Planning Assessment Assigned Brusher Hand SIMON Forman Contact Information Bryan Wheat (spouse) # [phone] Advance Directives? Yes Advance Directives on File No: states full code History Provided By Patient,Family Member Prior Living Arrangements House Household Members spouse Type of transporation used prior to Relies on Others admit Independent with ADL's Yes: Per spouse patient weak but able to ambulate. Is patient alert and oriented? Yes Caregiver for Another No Patient/Family Preference Home with Home Health Comment Patient is readmit, discharged from [facility] last week. Initially, went to [facility] and spouse removed her within 12hrs. Patient has been coming to [facility] for outpatient IV abx. Per Dr. Velasco, patient completed with IV abx. Cultures currently pending for infected midline that was removed. Barriers to Discharge No Comment Family wants patient to return home with HH if possible. Discharge Plan Home with Home Health Transportation Arrangement Spouse Referrals Initiated Home Health Additional Comment [facility] is only agency that goes to [facility]. F2F signed. Cultures pending hopefully patient will not need additional IV abx. Whiteboard Updated in Patient Room with Yes name and ext. # of Brusher Hand Review Status In Process Next Review Type Continued Stay Review
[2022-04-27] MEDS: WARFARIN 1 MG TABLET 3 MG PO (16:13)
--- NOTE | 2022-04-27 18:36 | PC.NURSE ---
Day shift: IV site rt AC area failed/removed by Pt. Dr Savage informed. OK for no IV access at this time per MD. VS WNL and Pt stable. Labs to be checked in AM and will address need for IV access in the AM. Pt and Pt's Spouse informed of this plan.
[2022-04-27] MEDS: METOPROLOL IR 25 MG TABLET PO (20:12)
[2022-04-27] MEDS: dilTIAZem CD 120 MG CAP PO (20:12)
[2022-04-28] MEDS: ACETAMINOPHEN 325 MG TABLET 650 MG PO ×2 (02:45→09:35)
[2022-04-28 05:42] LABS: Hemoglobin 7.6 g/dL (12.0-16.0); Mean Corpuscular Hemoglobin 27.5 PG (26-34); Mean Corpuscular Volume 83.6 fL (80-100); Platelet Count 309 X10^3/uL (150-400); Red Blood Cell Count 2.76 X10^6/uL (4.0-5.2); Red Cell Distribution Width 17.1 % (11.6-14.8); White Blood Cell Count 6.9 X10^3/uL (4.5-11.0)
[2022-04-28 05:43] LABS: Hematocrit 23.1 % (36-46)
[2022-04-28 05:49] LABS: BUN Creatinine Ratio 21.2 (6-22); Blood Urea Nitrogen 73 mg/dL (7-17); Calcium 8.7 mg/dL (8.4-10.2); Carbon Dioxide 16 mmol/L (22-32); Chloride 106 mmol/L (98-107); Estimated Glomerular Filt Rate 13 mL/min (>60); Glucose 75 mg/dL (80-110); HEMOLYSIS < 15 (0-50); Sodium 131 mmol/L (137-145)
[2022-04-28] MEDS: LEVOTHYROXINE 50 MCG TABLET PO (05:53)
[2022-04-28 06:00] VITALS: BP 142/58; BP 148/60; BP 149/68; PULSE 71; PULSE 77; PULSE 78; RESP 18; TEMP 36.6; O2SAT 95
--- NOTE | 2022-04-28 08:46 | DI.RAD.S_ITS ---
PROCEDURE: XR KNEE RT 3V INDICATIONS: knee pain, swelling TECHNIQUE: 3 views of the knee were acquired. COMPARISON: None. FINDINGS: Bones: No fractures or dislocations. No suspicious bony lesions. Tricompartmental arthritic change. Soft tissues: Mild joint effusion. No suspicious soft tissue calcifications. Prominent vascular calcifications are present. IMPRESSION: Mild effusion. No visualized acute fracture or dislocation. However, if clinical concern and/or pain persist, short interval imaging followup in 7-10 days is recommended, as occult injury cannot be definitively excluded. Tricompartmental arthritic change. Dictated by: Mackenzie Spangler M.D. on 04/28/2022 at 9:08 Approved by: Mackenzie Spangler M.D. on 04/28/2022 at 9:09
[2022-04-28] MEDS: METOPROLOL IR 25 MG TABLET PO (09:35)
[2022-04-28] MEDS: SODIUM CHLORIDE 0.9% FLUSH 10 ML IV (09:35)
--- NOTE | 2022-04-28 09:40 | PT.IPTN ---
Current Diagnoses Hypo-osmolality and hyponatremia (04/26/22) Physical Therapy Treatment Note M2 PT-IP Current Condition Start: 04/27/22 08:45 Freq: NEEDED Status: Active Protocol: Document 04/27/22 09:57 AMB (Rec: 04/27/22 10:34 AMB [id number]) Physical Therapy Current Condition Current Condition Evaluation Date 04/27/22 Treatment Diagnosis hyponatremia/weakness/fall history Onset Date 04/26/22 M3 PT-IP Subjective Start: 04/27/22 08:45 Freq: NEEDED Status: Active Protocol: Document 04/28/22 09:40 AW (Rec: 04/28/22 11:23 AW [id number]) Subjective Physical Therapy Visit Type Type Treatment Note Visit Start Time 09:12 Visit Stop Time 09:40 Total Visit Minutes 28 Physical Therapy Visit Comments Patient Comments Barbara is complaining of some new-onset right knee pain this morning. Patient Goals Return home when safe Therapy Pain Assessment Pain When Pain Assessed During Weight Bearing Pain Present Pain Present Pain Reported Location Right Knee Intensity 3 Scale Used Numeric (0 - 10) M4 PT-IP Mobility and Gait Start: 04/27/22 08:45 Freq: NEEDED Status: Active Protocol: Document 04/28/22 09:40 AW (Rec: 04/28/22 11:23 AW [id number]) PT-Bed Mobility Assessment Supine to Sit Supine to Sit Standby Assistance Sit to Supine Sit to Supine Standby Assistance PT-Transfer Assessment Sit to and From Stand Sit to and from Stand Contact Guard Assistance Equipment Transfer Assistive Device Gait Belt,Front Wheeled Walker Transfers Transfer Destination Bed,Toilet Transfer Technique Stand Step Pivot Transfer Ability Level of Assist Contact Guard Assistance Comments Mobility Comments Pt completed bed mobility SBA and stood CGA. She complained of right knee pain but was able to shift weight well with FWW. She walked with FWW CGA to the stairs and back. On return to the room, she transferred to the toilet CGA. After toileting, she transferred back to bed SBA. Gait Assessment Gait Gait Assistance Required: Contact Guard Assist,1 Person Assist Distance (Feet) 140 Assistive Devices Assistive Device Gait Belt,Front Wheeled Walker Gait Deviations General Gait Pattern Antalgic,Decreased Stride Length,Decreased Feet Clearance,Wide Based Gait Factors Limiting Gait Function Factors Limiting Gait Function Decreased Sensation,Decreased Strength,Pain,Poor Balance Comments Gait Comments Better tolerance for gait today with FWW. Knee pain did not appear to limit function. Stair Climbing Assessment Evaluation Level of Assist On Stairs Contact Guard Assistance Devices Stair Climbing Assistive Devices Left Railing,Right Railing Technique/Endurance Stair Climbing Direction Ascend and Descend Stair Climbing Technique Step to Step Number of Steps Climbed 3 Stair Climbing Set # Repetitions (reps) 1 Comments Stair Climbing Comments CGA to ascend and descend with B rails (which she has at home). PT-Balance Assessment Sitting Balance and Reactions Static Sitting Balance Ability Good Dynamic Sitting Balance Ability Good Standing Balance and Reactions Static Standing Balance Ability Fair Dynamic Standing Balance Ability Fair Device Used FWW Comments Other Balance Tests/Deviations/Treatment Pt was able to manage her : briefs at the toilet SBA without need to hold grab bar or walker. M5 PT-IP Objective Assessments Start: 04/27/22 08:45 Freq: NEEDED Status: Active Protocol: Document 04/27/22 09:57 AMB (Rec: 04/27/22 10:34 AMB [id number]) Orientation Orientation/Cognition Level of Alertness Alert Comments Pt's tends to answer for her Strength Comments Strength Comments B LE grossly 3/5, needs UE support to move from sit to stand M6 PT-IP Treatment Start: 04/27/22 08:45 Freq: NEEDED Status: Active Protocol: Document 04/28/22 09:40 AW (Rec: 04/28/22 11:23 AW [id number]) Physical Therapy Treatment Education Education Provided Safety Other Treatments Other Treatment Performed Assessed R knee. Pt is point tender along joint line medially. All stress testing was normal with no sign of laxity. M7 PT-IP Assessment and Plan Start: 04/27/22 08:45 Freq: NEEDED Status: Active Protocol: Document 04/28/22 09:40 AW (Rec: 04/28/22 11:23 AW [id number]) PT Summary Assessment and Plan Summary Progress Towards Goals Progressing Toward Goals Assessment Summary Barbara is mobilizing well with FWW and CGA which her attentive spouse is very happy and able to provide. She managed stairs CGA. Spouse was able to don and doff gait belt and provide appropriate level of assist. Right knee has some medial swelling and point tenderness but stress testing was WNL and pt was able to bear weight and walk with FWW. Pt is safe to discharge home with spouse to assist. She would benefit from home health PT to improve strength and mobility independence. Goals Bed Mobility Goal Independent Transfer Goal Standby Assistance Gait Goal Standby Assistance Gait Distance 100 Other Goals 3 stairs with railing with Arlene Days to Meet Goals 5 Frequency of Treatment Frequency Of Treatment Once a Day Treatment Plan Physical Therapy Treatment Plan Bed Mobility Training,Transfer Training,Gait Training, Therapeutic Exercise,Balance Retraining Recommendations To Nursing Amount of Assist Needed 1 Person Assist Discharge Recommendations PT Discharge Recommendations Home with Assistance,Home Health
[2022-04-28 10:00] VITALS: O2SAT 98
--- NOTE | 2022-04-28 11:33 | OT.IP.EVAL ---
Current Diagnoses Hypo-osmolality and hyponatremia (04/26/22) Past Medical History (Last Reviewed 04/26/22 @ 18:26 by Nathaniel Savage MD) Atrial fibrillation Bladder cancer Surgical History (Last Reviewed 04/26/22 @ 18:26 by Nathaniel Savage MD) H/O total cystectomy (03/2014) Status post total abdominal hysterectomy and bilateral salpingo-oophorectomy (ANGELA-BSO) (03/2014) Occupational Therapy Inpatient Evaluation/Re-Eval M1 PT/OT-IP Prior Functional Status Start: 04/27/22 08:45 Freq: NEEDED Status: Active Protocol: Document 04/28/22 14:18 CGR (Rec: 04/28/22 14:33 CGR [id number]) Medical Review Prior Functional Status Medical History Reviewed Yes Communication Pt is an effective verbal communicator. Mobility and Gait Ambulates in the home with FWW , manual w/c for longer distances Activities of Daily Living and IADL's Pt's reports they have been doing sponge baths. Social History Household Members spouse Living Arrangements House Number of Floors (Floors) One Floor Number of Stairs To Enter/Railing? 3, bilateral rails Home Environment Standard Height Toilet,Walk in Shower Home Equipment Front Wheel Walker,Quad Cane, Hand Held Shower Employment Status Retired Additional Social History Comment Lives on [address] with her spouse. M2 OT-IP Current Condition Start: 04/28/22 14:18 Freq: Status: Active Protocol: Document 04/28/22 14:18 CGR (Rec: 04/28/22 14:33 CGR [id number]) Occupational Therapy Current Condition Current Condition Evaluation Date 04/28/22 Treatment Diagnosis acute hyponatremia, JENNIFER Diagnosis Onset Date 04/26/22 M3 OT- IP Subjective and Pain Start: 04/28/22 14:18 Freq: Status: Active Protocol: Document 04/28/22 14:18 CGR (Rec: 04/28/22 14:33 CGR [id number]) OT- Subjective Occupational Therapy Visit Type Type Initial Evaluation Visit Start Time 11:07 Visit Stop Time 11:33 Total Visit Minutes 26 Notes Pt's present throughout OT Pain Assessment Pain When Pain Assessed At Rest Pain Present Pain Present Pain Reported Location Right Knee Intensity 2 Scale Used Numeric (0 - 10) Management Techniques Distraction,Modification of Treatment,Re-positioning M4 OT- IP ADL's Start: 04/28/22 14:18 Freq: Status: Active Protocol: Document 04/28/22 14:18 CGR (Rec: 04/28/22 14:33 CGR [id number]) OT [id number] Comments OT Self-Feeding Comments not meal time OT ADL-Grooming General Evaluation Grooming Ability Standby Assistance Areas Needing Assistance Face Washing Comments OT Grooming Comments standing at sink OT ADL-Oral Care General Eval Oral Care Ability Standby Assistance Areas of Assistance Brushing Teeth Comments Oral Care Comments standing at sink OT ADL-Dressing Comments OT Dressing Comments not performed OT ADL-Toileting General Evaluation Toileting Ability Standby Assistance Comments OT Toileting Comments Pt had small BM seated on toilet OT ADL-Bathing Comments OT Bathing Comments not performed M5 OT- IP IADL's Start: 04/28/22 14:18 Freq: Status: Active Protocol: Document 04/28/22 14:18 CGR (Rec: 04/28/22 14:33 CGR [id number]) OT-Instrumental Activities of Daily Living Deficits IADL Deficits Identified No Deficits Home Safety Awareness Awareness of Need for Assistance at Home Good Awareness Ability to Problem Solve Emergency Able to Problem Solve Situations Medication Management Medication Management Caregiver Administers Money Management Money Management Caregiver Provides Assistance Meal Preparation Meal Preparation Caregiver Provides Assist Account Associate Account Associate Caregiver Provides Assist Driving Driving Comments Pts spouse performs driving tasks. M6 OT- IP Functional Cognition Start: 04/28/22 14:18 Freq: Status: Active Protocol: Document 04/28/22 14:18 CGR (Rec: 04/28/22 14:33 CGR [id number]) Cognitive Factors Limiting Selfcare Function Cognitive Ability Level of Alertness Alert Patient Orientation Name,Age,Birthday,Month,Year, Day of Week,Place,Situation Attention Span Ability Capable of Focused Attention, Capable of Sustained Attention Ability to Follow Commands Able to Follow One Step Commands with Increased Time, Able to Follow One Step Commands with Repetition Cognitive Comments Cognitive Assessment Comments Pt would benefit from formal cog assessment OT- Vision and Hearing OT- Hearing Assessment OT- Hearing Assessment Hearing Impaired,Use of Hearing Aids OT- Vision Assessment Visual Acuity Glasses All The Time Visual Attentiveness WFL Occular Pursuits WFL M7 OT- IP Mobility and Balance Start: 04/28/22 14:18 Freq: Status: Active Protocol: Document 04/28/22 14:18 CGR (Rec: 04/28/22 14:33 CGR [id number]) OT- Bed Mobility Assessment Supine to Sit Supine to Sit Assist Standby Assistance Sit to Supine Sit to Supine Assist Standby Assistance Scooting Scooting to Edge of Bed Standby Assistance OT-Transfer Assessment Sit to and From Stand Sit to and from Stand Contact Guard Assistance, Minimal Assistance Transfers Transfer Ability Contact Guard Assistance, Minimal Assistance Technique Transfer Destination Bed,Toilet Transfer Technique Stand Step Pivot Devices Transfer Assistive Devices Gait Belt,Front Wheeled Walker Comments Mobility Comments mobility around the room. OT- Balance Assessment Sitting Balance and Reactions Static Sitting Balance Ability Normal Dynamic Sitting Balance Ability Good M8 OT- IP Objective Assessments Start: 04/28/22 14:18 Freq: Status: Active Protocol: Document 04/28/22 14:18 CGR (Rec: 04/28/22 14:33 CGR [id number]) OT Gross Range of Motion Upper Extremity Range of Motion Assessment Within Functional Limits OT Strength Upper Extremity Strength Assessment Within Functional Limits Comments Strength Comments grossly 4-/5, R shld slightly weaker OT- Coordination Assessment Upper Extremity Finger to Nose Test Within Functional Limits Finger Tapping Test Within Functional Limits OT-Muscle Tone Assessment Muscle Tone WNL Yes OT Sensation Assessment Edema Edema Absent M9 OT- IP Assessment and Plan Start: 04/28/22 14:18 Freq: Status: Active Protocol: Document 04/28/22 14:18 CGR (Rec: 04/28/22 14:33 CGR [id number]) OT Summary Assessment and Plan Potential Rehabilitation Potential Good Analytic Complexity at Evaluation Moderate Summary OT Impairments Pain,Strength,Balance, Functional Cognition, Functional Mobility,Grooming, Dressing,Toileting,Bathing, Toilet Transfers,Shower Transfers,Activity Tolerance Progress Towards Goals Progressing Toward Goals Assessment Summary Pt presents as a moderate complexity evaluation s/p admit for acute hyponatremia and JENNIFER. Pt currently ambulating with CGa to min a. Pt's spouse is able and willing to assist and wants to take pt home. Pt is ready for discharge home. Pt would benefit from continued therapy services via home health. Goals Self-Feeding Goal Independent Grooming Goal Independent Dressing Goal Independent Toileting Goal Independent Bathing Goal Independent Toilet Transfer Goal Independent Shower Transfer Goal Independent Days to Meet Goals 30 Frequency of Treatment Frequency Of Treatment Once a Day Treatment Plan OT Treatment Plan ADL Training,Functional Mobility,Patient/Family Education,Discharge Planning Other Treatment Recommendations and Next shower Treatment Focus Discharge Recommendations OT Discharge Recommendations Home with 24/ Assist Available Transportation Needs at Discharge Private Vehicle
[2022-04-28 11:40] VITALS: BP 131/50; PULSE 54; RESP 16; TEMP 36.1; O2SAT 98
--- NOTE | 2022-04-28 12:16 | CM.DPC ---
DCP Discharge Home with HH Per MD, pt is medically stable to d/c home today with HH and no identified barriers to discharge and no IV-Abx needed at d/c. SW called [facility] and made referral again (referral previously made at pt's last admission last week) and completed F2F and CC Marylou scanned into pt chart and [facility] confirms they can accept pt and aware she and spouse live on [facility]. ZARI updated RN and plan is for pt and spouse to d/c around 1300. Plan: Patient to d/c via spouse POV today around [address] [facility] and new [facility] to follow. SIMON Sarmiento
--- NOTE | 2022-04-28 13:18 | PM.DS.1 ---
History of Present Illness History of Present Illness Chief complaint: collapsed legs gave out released from hosp thursday Narrative: Ms. Wheat is a 82W with PMH afib, breast cancer, bladder cancer s/p cystectomy with urostomy with surgery in 2013 and no recurrence of cancer who presents after collapse. She noted that her legs today were weak and suddenly gave out on her and her caught her before she hit the floor. She did not feel dizzy or lightheaded, no chest pain or shortness of breath. She does feel thirsty. She has noted having some diarrhea and a poor appetite but says she is drinking fluids. Of note she was recently admitted to the hospital for a prolonged period due to pneumonia, UTI, and sepsis and was discharged with a prolonged course of antibiotics with ertapenem and levaquin for two resistant bacteria with antibiotics planned to be finished 04/27. She has a urostomy and has not noted any changes to liquid from urostomy, she has no cough or shortness of breath. Last admission she did have noted mild hydronephrosis that appeared chronic with nonobstructing kidney stone. She has no abdominal pain. She was on diuretics last admission but these were stopped on discharged due to JENNIFER. Her baseline creatinine appears near 2.8, with discharge creatinine being 3.65. In the ED workup was done, vitals notable for temp 97.8, hr 59. Labs notable for WBC 8, hgb 8.9, plts 380. Na 121, K 5.5. Cl 91, co2 18, BUN 87, creatinine 4.49. She states she was still making good volume of urine. INR 2.5. Renal ultrasound showed hydronephrosis therefore follow up CT was ordered which showed stable hydronephrosis and no kidney stone. She was ordered for IV fluids and admitted for further treatment. Discharge Providers Provider Date of admission: 04/26/22 14:11 Discharge Date: 04/28/22 Primary care physician: Brionna Jiménez MD Consults: 04/26/22 18:25 Consult to Physical Therapy Evaluate & Treat Comment: Physician Instructions: Evaluate and Treat 04/27/22 09:49 Consult to Occupational Therapy Evaluate & Treat Comment: Physician Instructions: Evaluate and treat Discharge provider: Nathaniel Savage MD Summary Hospital Course Discharge Diagnosis: 1. Acute hyponatremia 2. JENNIFER on CKD stage 4 with hyperkalemia 3. Hypothyroidism 4. Chronic atrial fibrillation 5. Recent UTI, pneumonia completed antibiotics 6. Urostomy Hospital Course: Ms. Wheat was recently admitted to the hospital with resistant UTI, and also a pneumonia and had been discharged on antibiotics through a PICC. She presented back to the hospital with dehydration, leading to weakness, hyponatremia, and JENNIFER. She was given IV fluids and her symptoms improved and her electrolyes improved and her renal dysfunction improved. Her baseline recently appeared to be a creatinine of 2.7, with admission creatinine being 4.49 and discharge creatinine being 3.44. She finished her antibiotic course on 04/27 and her picc was removed. There was initially some question about possible infection in the PICC but she had no leukocytosis, no fevers, no pus at site, tip was cultured and negative at day of discharge, and blood cultures were also negative so there was no indication for antibiotics. Time Spent with Patient Time spent: Greater than 30 minutes Exam Vital Signs (past 8 hours): - 04/28/22 06:00 04/28/22 06:00 04/28/22 06:00 Temperature 97.8 F Pulse Rate 71 Pulse Rate [Orthostatic Lying] 71 Pulse Rate [Orthostatic Sitting] 78 Pulse Rate [Orthostatic Standing] 77 Respiratory Rate 18 Blood Pressure 148/60 H Blood Pressure [Orthostatic Lying] 148/60 H Blood Pressure [Orthostatic Sitting] 149/68 H Blood Pressure [Orthostatic Standing] 142/58 H Pulse Oximetry 95 Oxygen Delivery Method Room Air Oxygen Flow Rate 0 04/28/22 11:40 04/28/22 10:00 Temperature 97 F L Pulse Rate 54 L Pulse Rate [Orthostatic Lying] Pulse Rate [Orthostatic Sitting] Pulse Rate [Orthostatic Standing] Respiratory Rate 16 Blood Pressure 131/50 L Blood Pressure [Orthostatic Lying] Blood Pressure [Orthostatic Sitting] Blood Pressure [Orthostatic Standing] Pulse Oximetry 98 98 Oxygen Delivery Method Room Air Oxygen Flow Rate 0 Oxygen Delivery Method Room Air Oxygen Flow Rate 0 Narrative Exam Narrative: GEN: fatigued but no acute distress PULM: clear bilaterally CV: irregular, bradycardic ABD: soft, nontender, ostomy draining dark brownish liquid Objective Labs Result Diagrams: 04/28/22 05:27 04/28/22 05:27 Labs: Laboratory Results - last 24 hr 04/28/22 04/28/22 05:27 05:27 WBC 6.9 RBC 2.76 L Hgb 7.6 L Hct 23.1 L MCV 83.6 MCH 27.5 MCHC 33.0 RDW 17.1 H Plt Count 309 Sodium 131 L Potassium 5.0 Chloride 106 Carbon Dioxide 16 L BUN 73 H Creatinine 3.44 H Estimated GFR 13 L BUN/Creatinine Ratio 21.2 Glucose 75 L Calcium 8.7 PFSH Medical History (Updated 04/28/22 @ 00:01 by ) Atrial fibrillation Bladder cancer Surgical History H/O total cystectomy (03/2014) Status post total abdominal hysterectomy and bilateral salpingo-oophorectomy (ANGELA-BSO) (03/2014) Social History household members: spouse Smoking Status: Former smoker alcohol intake: current Discharge Plan Discharge Plan Patient Disposition: Home Health Service Provider Discharge Comment: Ms. Wheat came in after collapsing. She was dehdyrated with abnormal electrolytes. She was rehydrated and electrolytes replenished. Her kidney function improved. Her antibiotics were finished in the hospital. Discharge orders & Medications Prescriptions: Continued atorvastatin 40 mg tablet 40 mg PO QPM multivitamin capsule 1 cap PO DAILY warfarin 3 mg tablet 3 mg PO BEDTIME Rx Instructions: 3mg sun, , thu, , sat. 6mg thursday & thursday levothyroxine 50 mcg tablet 1 tab PO DAILY gabapentin 300 mg capsule 900 mg PO BEDTIME Label Comments: need to clarify sig 1 in am 2 qhs metoprolol tartrate 25 mg tablet 50 mg PO TID hydralazine 25 mg Tablet 25 mg PO TID diltiazem HCl 120 mg Tablet 120 mg PO BEDTIME cyanocobalamin (vitamin B-12) 1,000 mcg Tablet 1,000 mcg PO DAILY Rx Instructions: @1300 calcium 600 mg Capsule 600 mg PO DAILY cholecalciferol (vitamin D3) [Vitamin D3] 25 mcg (1,000 unit) Tablet 25 mcg PO DAILY Rx Instructions: @1300 Discontinued magnesium 250 mg Tablet 250 mg PO BEDTIME Follow up/Referrals: Brionna Jiménez MD [Primary Care Provider] - 1 Day Diet/Activity/Treatments Diet: Regular Discharge Data Primary Care Provider: Brionna Jiménez
--- NOTE | 2022-04-28 13:28 | PC.NURSE ---
Pt is A&OX3, VSS, afebrile on RA. She reports pain to RLE this a.m. MD aware and Xray ordered which revealed some arthritis. Pt reported minimal relief from prn tylenol but reported pain is tolerable. She is medically cleared for discharge home with home health after working with PT/Ot. She has adequate light yellow clear urine draining from her urostomy emptied 700cc. She tolerates both breakfast and lunch well. Pt and her verbalize understanding of medication, activity and follow up plan. She is escorted by PROFILING MACHINE SET UP OPERATOR TOOL via w/ch with all of her belongings for discharge at approximately 1320 this afternoon.
[2022-04-29 14:37] LABS: Osmolality Urine 209 mOsmol/kg (.)
== END 2022-04-28 13:20 | disposition home health service (06) | DRG 641 ==
LOC: ED 14:09 → AC 14:11
PROVIDERS: Admitting Provider Internal Medicine; Emergency Provider Emergency Medicine; Family Provider Internal Medicine; PCP Internal Medicine; Referring Provider Emergency Medicine; Visit Provider Internal Medicine
DX: E87.1 Hypo-osmolality and hyponatremia (principal); N17.9 Acute kidney failure, unspecified; I48.20 Chronic atrial fibrillation, unspecified; N18.4 Chronic kidney disease, stage 4 (severe); N39.0 Urinary tract infection, site not specified; Z16.12 Extended spectrum beta lactamase (ESBL) resistance; E86.0 Dehydration; E03.9 Hypothyroidism, unspecified; E78.5 Hyperlipidemia, unspecified; I12.9 Hypertensive chronic kidney disease with stage 1 through stage 4 chronic kidney disease, or unspecified chronic kidney disease; Z79.01 Long term (current) use of anticoagulants; Z87.891 Personal history of nicotine dependence; Z20.822 Contact with and (suspected) exposure to COVID-19; Z93.6 Other artificial openings of urinary tract status; A49.9 Bacterial infection, unspecified
CPT/HCPCS: 36415; 71045; 73562; 74176; 76770; 80048; 80053; 81001; 82550; 82570; 83690; 83735; 83935; 84300; 84484; 85025; 85027; 85610; 85730; 87040; 87070; 87205; 93005; 96360; 96361; 96365; 96523; 97116; 97162; 97167; 97530; 97535; 99284; 99285; J1335; J2543

== ENCOUNTER → 2022-05-06 11:00 | Outpatient (CLI) | payer MEDICARE, SELFPAY ==
[2022-04-14 12:34] VITALS: BMI 21.2
[2022-04-26 14:15] VITALS: BMI 21.4
[2022-05-06 11:36] VITALS: BP 157/83; PULSE 84; RESP 18; TEMP 37.2; O2SAT 99
[2022-05-06] MEDS: EPOETIN ALFA-EPBX 10,000 UNIT/ML VIAL 10000 UNIT SUBCUT (11:52)
--- NOTE | 2022-05-06 12:08 | PC.NURSE ---
BP elevated at time of VS pre injection. Per who manages her medications she took her am hydralazine but not yet the midday dose of the TID order. She has been at Dr. visits all am which probably explains the somewhat elevated systolic. confirmed that patient is taking all medications as ordered and med list in the chart was verified by this RN.
== END ==
PROVIDERS: Family Provider Internal Medicine; PCP Internal Medicine; Referring Provider Internal Medicine Nephrology; Visit Provider Internal Medicine Nephrology
DX: N18.5 Chronic kidney disease, stage 5 (principal); D63.1 Anemia in chronic kidney disease; E83.30 Disorder of phosphorus metabolism, unspecified; N25.81 Secondary hyperparathyroidism of renal origin; D70.9 Neutropenia, unspecified; N05.9 Unspecified nephritic syndrome with unspecified morphologic changes
CPT/HCPCS: 36415; 80053; 83970; 84100; 85014; 85018; 85025; 96372; Q5106

== ENCOUNTER → 2022-05-06 12:59 | Outpatient (CLI) | payer MEDICARE, SELFPAY ==
[2022-04-26 14:15] VITALS: BMI 21.4
[2022-05-06 14:50] LABS: Hematocrit 30.4 % (36-46); Hemoglobin 9.8 g/dL (12.0-16.0)
[2022-05-06 14:56] LABS: Add Manual Diff / Slide Review NO; Basophils Absolute Auto 0 /uL (0-100); Basophils Percent Auto 0.6 % (0-2); Eosinophils Absolute Auto 0 /uL (0-450); Hematocrit 28.8 % (36-46); Hemoglobin 9.4 g/dL (12.0-16.0); Lymphocytes Absolute Auto 800 /uL (1100-4500); Lymphocytes Percent Auto 13.6 % (25-40); Mean Corpuscular HGB Conc 32.7 % (30-36); Mean Corpuscular Hemoglobin 27.3 PG (26-34); Mean Corpuscular Volume 83.4 fL (80-100); Monocytes Absolute Auto 400 /uL (0-900); Monocytes Percent Auto 6.8 % (3-14); Neutrophils Absolute Auto 4400 /uL (1500-7000); Platelet Count 228 X10^3/uL (150-400); Red Blood Cell Count 3.45 X10^6/uL (4.0-5.2); Red Cell Distribution Width 17.1 % (11.6-14.8); White Blood Cell Count 5.6 X10^3/uL (4.5-11.0)
[2022-05-06 15:58] LABS: Alanine Aminotransferase 21 IU/L (<35); Albumin 3.9 g/dL (3.5-5.0); Albumin Globulin Ratio 1.1 (1.0-2.8); Alkaline Phosphatase 86 U/L (38-126); Aspartate Aminotransferase 23 IU/L (14-36); BUN Creatinine Ratio 17.7 (6-22); Bilirubin Total 0.5 mg/dL (0.2-1.3); Blood Urea Nitrogen 50 mg/dL (7-17); Calcium 9.5 mg/dL (8.4-10.2); Carbon Dioxide 21 mmol/L (22-32); Chloride 106 mmol/L (98-107); Estimated Glomerular Filt Rate 16 mL/min (>60); Globulin 3.7 g/dL (1.7-4.1); Glucose 184 mg/dL (80-110); HEMOLYSIS < 15 (0-50); Phosphorous 3.9 mg/dL (2.8-4.1); Potassium 4.5 mmol/L (3.4-5.1); Sodium 142 mmol/L (137-145); Total Protein 7.6 g/dL (6.3-8.2)
[2022-05-07 06:33] LABS: Parathyroid Hormone Int 33 pg/mL (15-65)
== END ==
PROVIDERS: Family Provider Internal Medicine; PCP Internal Medicine; Referring Provider Internal Medicine Nephrology; Visit Provider Internal Medicine Nephrology
DX: E83.30 Disorder of phosphorus metabolism, unspecified (principal); N25.81 Secondary hyperparathyroidism of renal origin; D70.9 Neutropenia, unspecified; D63.1 Anemia in chronic kidney disease; N05.9 Unspecified nephritic syndrome with unspecified morphologic changes; D64.9 Anemia, unspecified
CPT/HCPCS: 36415; 80053; 83970; 84100; 85014; 85018; 85025

== ENCOUNTER → 2022-05-19 14:27 | Outpatient (CLI) | payer MEDICARE, SELFPAY ==
[2022-04-26 14:15] VITALS: BMI 21.4
[2022-05-19 14:41] LABS: Hematocrit 29.2 % (36-46); Hemoglobin 9.5 g/dL (12.0-16.0)
== END ==
PROVIDERS: Family Provider Internal Medicine; PCP Internal Medicine; Referring Provider Internal Medicine; Visit Provider Internal Medicine
DX: N18.9 Chronic kidney disease, unspecified (principal)
CPT/HCPCS: 36415; 85014; 85018

== ENCOUNTER → 2022-05-20 13:14 | Outpatient (CLI) | payer MEDICARE, SELFPAY ==
[2022-04-14 12:34] VITALS: BMI 21.2
[2022-04-26 14:15] VITALS: BMI 21.4
[2022-05-20 14:00] VITALS: BP 131/62; RESP 18; TEMP 36.8; O2SAT 98
[2022-05-20] MEDS: EPOETIN ALFA-EPBX 10,000 UNIT/ML VIAL 10000 UNIT SUBCUT (14:22)
== END ==
PROVIDERS: Family Provider Internal Medicine; PCP Internal Medicine; Referring Provider Internal Medicine Nephrology; Visit Provider Internal Medicine Nephrology
DX: N18.5 Chronic kidney disease, stage 5 (principal); D63.1 Anemia in chronic kidney disease
CPT/HCPCS: 96372; Q5106

== ENCOUNTER → 2022-07-08 13:58 | Outpatient (CLI) | payer MEDICARE, SELFPAY ==
[2022-04-26 14:15] VITALS: BMI 21.4
[2022-07-08 14:35] LABS: Hematocrit 29.1 % (36-46); Hemoglobin 9.4 g/dL (12.0-16.0)
== END ==
PROVIDERS: Family Provider Internal Medicine; PCP Internal Medicine; Referring Provider Internal Medicine Nephrology; Visit Provider Internal Medicine Nephrology
DX: D64.9 Anemia, unspecified (principal)
CPT/HCPCS: 36415; 85014; 85018

== ENCOUNTER → 2022-07-09 10:24 | Outpatient (CLI) | payer MEDICARE, SELFPAY ==
[2022-04-26 14:15] VITALS: BMI 21.4
[2022-07-09 10:39] VITALS: BP 146/45; PULSE 70; RESP 16; TEMP 37.1; O2SAT 96
[2022-07-09] MEDS: EPOETIN ALFA-EPBX 10,000 UNIT/ML VIAL 10000 UNIT SUBCUT (11:00)
== END ==
PROVIDERS: Family Provider Internal Medicine; PCP Internal Medicine; Referring Provider Internal Medicine Nephrology; Visit Provider Internal Medicine Nephrology
DX: N18.5 Chronic kidney disease, stage 5 (principal); D63.1 Anemia in chronic kidney disease
CPT/HCPCS: 96372; Q5106

== ENCOUNTER → 2022-07-23 10:12 | Outpatient (CLI) | payer MEDICARE, SELFPAY ==
[2022-04-26 14:15] VITALS: BMI 21.4
--- NOTE | 2022-07-23 10:26 | PC.NURSE ---
epo: Epo help r/t labs, hgb 10.
== END ==
PROVIDERS: Family Provider Internal Medicine; PCP Internal Medicine; Referring Provider Internal Medicine Nephrology; Visit Provider Internal Medicine Nephrology
DX: N18.5 Chronic kidney disease, stage 5 (principal); D63.1 Anemia in chronic kidney disease

== ENCOUNTER → 2022-08-05 14:47 | Outpatient (CLI) | payer MEDICARE, SELFPAY ==
[2022-04-26 14:15] VITALS: BMI 21.4
[2022-08-05 16:17] LABS: Add Manual Diff / Slide Review NO; Basophils Absolute Auto 0 /uL (0-100); Basophils Percent Auto 0.5 % (0-2); Eosinophils Absolute Auto 0 /uL (0-450); Hemoglobin 9.6 g/dL (12.0-16.0); Lymphocytes Absolute Auto 700 /uL (1100-4500); Lymphocytes Percent Auto 14.8 % (25-40); Mean Corpuscular Hemoglobin 26.4 PG (26-34); Mean Corpuscular Volume 82.3 fL (80-100); Monocytes Absolute Auto 400 /uL (0-900); Monocytes Percent Auto 8.3 % (3-14); Neutrophils Absolute Auto 3800 /uL (1500-7000); Neutrophils Percent Auto 76.4 % (50-75); Platelet Count 277 X10^3/uL (150-400); Red Blood Cell Count 3.65 X10^6/uL (4.0-5.2)
[2022-08-05 16:29] LABS: BUN Creatinine Ratio 16.5 (6-22); Blood Urea Nitrogen 53 mg/dL (7-17); Calcium 9.4 mg/dL (8.4-10.2); Carbon Dioxide 22 mmol/L (22-32); Chloride 107 mmol/L (98-107); Estimated Glomerular Filt Rate 14 mL/min (>60); Glucose 90 mg/dL (80-110); HEMOLYSIS < 15 (0-50); Phosphorous 4.3 mg/dL (2.8-4.1); Potassium 4.6 mmol/L (3.4-5.1); Sodium 143 mmol/L (137-145)
[2022-08-05 17:04] LABS: Ferritin 20 ng/mL (11-264)
[2022-08-05 17:50] LABS: Iron 49 ug/dL (37-170)
[2022-08-05 18:02] LABS: Percent Iron Saturation 13 % (15-50); Total Iron Binding Capacity 380 ug/dL (265-497)
[2022-08-05 18:22] LABS: Thyroid Stimulating Hormone 4.43 uIU/mL (0.47-4.68)
[2022-08-08 10:34] LABS: Parathyroid Hormone Int 58 pg/mL (15-65)
== END ==
PROVIDERS: Family Provider Internal Medicine; PCP Internal Medicine; Referring Provider Internal Medicine Nephrology; Visit Provider Internal Medicine Nephrology
DX: N05.9 Unspecified nephritic syndrome with unspecified morphologic changes (principal); D63.1 Anemia in chronic kidney disease; D64.9 Anemia, unspecified; N25.81 Secondary hyperparathyroidism of renal origin; D70.9 Neutropenia, unspecified; D50.0 Iron deficiency anemia secondary to blood loss (chronic)
CPT/HCPCS: 36415; 80048; 82728; 83540; 83550; 83970; 84100; 84443; 85025

== ENCOUNTER → 2022-08-06 10:07 | Outpatient (CLI) | payer MEDICARE, SELFPAY ==
[2022-04-26 14:15] VITALS: BMI 21.4
[2022-08-06 10:35] VITALS: BP 147/70; PULSE 76; RESP 16; TEMP 36.6; O2SAT 98
[2022-08-06] MEDS: EPOETIN ALFA-EPBX 10,000 UNIT/ML VIAL 10000 UNIT SUBCUT (10:45)
== END ==
PROVIDERS: Family Provider Internal Medicine; PCP Internal Medicine; Referring Provider Internal Medicine Nephrology; Visit Provider Internal Medicine Nephrology
DX: N18.5 Chronic kidney disease, stage 5 (principal); D63.1 Anemia in chronic kidney disease
CPT/HCPCS: 96372; Q5106